=== PATIENT | female | born 1940 | race Caucasian/White ===

== ENCOUNTER → 2016-05-28 | Outpatient (CLI) | payer MEDICARE, OTHER ==
[~2016-05-28] MED LIST: ADV1DS IH; AGM875T; ALPR.25T; ALPR0.25 PO; ASPI-892 PO; BENZ200C3; CEFD300C3 PO; CHOL10003 PO; CHOL200059 PO; EST1.25T; ESTR1TAB24 PO; FISH OIL; FURO20TA4 PO; GARL400T13 PO; HC2.5C30 TOP; HCTZ12.5T PO; HYDR-3730 PO; HYDR12.56; LEVO50TA6 PO; LEVO75TA6 PO; MELO15TA39 PO; MNTL10T PO; MULT-878 PO; NADO40TA; NADO40TA PO; NFVALS90T PO; OMEG1CAP51 PO; PHEN200T27 PO; POTA10TA6; POTA10TA6 PO; PRD20T PO; PREPARATION H S48 EA PR; PREVASTATIN; PRV20T PO; SULF-222 PO; SULF1TAB35 PO; VALS320T8; [UNRECOGNIZED DRUG - OTHER]
[2016-05-28 15:01] LABS: BASOPHILS % (AUTO) 0 % (0-10); EOSINOPHILS # (AUTO) 0.1 10^3/uL (0.0-0.3); EOSINOPHILS % (AUTO) 1 % (0-10); LYMPHOCYTES # (AUTO) 4.6 X 10^3 (1.0-4.0); LYMPHOCYTES % (AUTO) 57 % (12-44); MEAN CORPUSCULAR HEMOGLOBIN 31 PG (25-34); MEAN CORPUSCULAR HGB CONC 33 G/DL (32-36); MEAN CORPUSCULAR VOLUME 97 FL (80-99); MEAN PLATELET VOLUME 10.6 FL (7.4-10.4); MONOCYTES # (AUTO) 0.6 X 10^3 (0.0-1.0); MONOCYTES % (AUTO) 7 % (0-12); NEUTROPHILS # (AUTO) 2.8 X 10^3 (1.8-7.8); NEUTROPHILS % (AUTO) 35 % (42-75); PLATELET COUNT 123 10^3/uL (130-400); RED BLOOD COUNT 3.63 10^6/uL (4.35-5.85); RED CELL DISTRIBUTION WIDTH 13.2 % (10.0-14.5)
[2016-05-28 15:36] LABS: ALANINE AMINOTRANSFERASE 25 U/L (0-55); ALBUMIN 3.9 G/DL (3.2-4.5); ANION GAP 9 MMOL/L (5-14); ASPARTATE AMINO TRANSFERASE 26 U/L (5-34); BILIRUBIN,TOTAL 0.5 MG/DL (0.1-1.0); BLOOD UREA NITROGEN 16 MG/DL (7-18); BUN/CREATININE RATIO 18; CALCIUM 9.5 MG/DL (8.5-10.1); CARBON DIOXIDE 28 MMOL/L (21-32); CHLORIDE 104 MMOL/L (98-107); GFR ESTIMATED > 60; GLUCOSE 146 MG/DL (70-105); LACTATE DEHYDROGENASE 199 U/L (125-220); POTASSIUM 3.5 MMOL/L (3.6-5.0); SODIUM 141 MMOL/L (135-145); TOTAL PROTEIN 5.9 G/DL (6.4-8.2)
== END ==
LOC: ONC 14:27
PROVIDERS: ATTEND Internal Medicine Hematology & Oncology
DX: D69.6 Thrombocytopenia, unspecified (principal)
CPT/HCPCS: 36415; 80053; 83615; 85025; 99213

== ENCOUNTER → 2016-06-21 | Outpatient (CLI) | payer MEDICARE, OTHER ==
--- NOTE | 2016-06-21 19:41 | Diagnostic Imaging Report ---
INDICATION: Screening. At this time there are no current complaints. EXAMINATION: Bilateral digital screening mammogram with CAD. The current study was also evaluated with a Computer Aided Detection (CAD) system. COMPARISON: This study was compared to the prior exams of 03/09/14, 02/04/13 and 12/10/11. FINDINGS: The fibroglandular tissue in both breasts is dense. This does limit the sensitivity of this exam. Overall, there does not appear to have been any significant change when compared to the prior study. No primary or secondary sign of malignancy is noted. IMPRESSION: 1. There is no radiographic evidence for malignancy. 2. The patient should have her annual bilateral screening mammogram on schedule in May of 2017. ACR BI-RADS Category 1: Negative. Result letter will be mailed to the patient. Note: At least 10% of breast cancer is not imaged by mammography. Dictated by: Dictated on workstation # [id number]
== END ==
LOC: RAD 13:04
PROVIDERS: ATTEND Internal Medicine
DX: Z12.31 Encounter for screening mammogram for malignant neoplasm of breast (principal)
CPT/HCPCS: 77067

== ENCOUNTER 2016-08-20 14:28 | Outpatient (RCR) | payer MEDICARE, OTHER ==
[2016-08-20 14:57] LABS: BASOPHILS % (AUTO) 0 % (0-10); EOSINOPHILS # (AUTO) 0.2 10^3/uL (0.0-0.3); EOSINOPHILS % (AUTO) 2 % (0-10); LYMPHOCYTES % (AUTO) 53 % (12-44); MEAN CORPUSCULAR HEMOGLOBIN 31 PG (25-34); MEAN CORPUSCULAR HGB CONC 32 G/DL (32-36); MEAN CORPUSCULAR VOLUME 96 FL (80-99); MEAN PLATELET VOLUME 10.9 FL (7.4-10.4); MONOCYTES # (AUTO) 0.5 X 10^3 (0.0-1.0); MONOCYTES % (AUTO) 6 % (0-12); NEUTROPHILS # (AUTO) 3.8 X 10^3 (1.8-7.8); NEUTROPHILS % (AUTO) 39 % (42-75); PLATELET COUNT 131 10^3/uL (130-400); RED BLOOD COUNT 4.02 10^6/uL (4.35-5.85); WHITE BLOOD COUNT 9.5 10^3/uL (4.3-11.0)
[2016-08-20 15:41] LABS: BILIRUBIN,TOTAL 0.6 MG/DL (0.1-1.0); CALCIUM 9.3 MG/DL (8.5-10.1); CREATININE SERUM 0.91 MG/DL (0.60-1.30); POTASSIUM 4.1 MMOL/L (3.6-5.0); TOTAL PROTEIN 6.4 G/DL (6.4-8.2)
== END 2016-11-18 | disposition home or self-care (01) ==
LOC: ONC 14:28
PROVIDERS: ATTEND Internal Medicine Hematology & Oncology
DX: C83.08 Small cell B-cell lymphoma, lymph nodes of multiple sites (principal); D80.1 Nonfamilial hypogammaglobulinemia; D69.59 Other secondary thrombocytopenia; I10 Essential (primary) hypertension; E03.9 Hypothyroidism, unspecified; E78.00 Pure hypercholesterolemia, unspecified; J42 Unspecified chronic bronchitis; M15.9 Polyosteoarthritis, unspecified; Z79.899 Other long term (current) drug therapy
CPT/HCPCS: 36415; 80053; 83615; 85025; 99213

== ENCOUNTER 2016-12-18 14:44 | Outpatient (RCR) | payer MEDICARE, OTHER ==
[2016-12-18 14:49] LABS: BASOPHILS % (AUTO) 0 % (0-10); EOSINOPHILS # (AUTO) 0.1 10^3/uL (0.0-0.3); EOSINOPHILS % (AUTO) 1 % (0-10); LYMPHOCYTES # (AUTO) 6.7 X 10^3 (1.0-4.0); LYMPHOCYTES % (AUTO) 55 % (12-44); MEAN CORPUSCULAR HEMOGLOBIN 31 PG (25-34); MEAN CORPUSCULAR HGB CONC 32 G/DL (32-36); MEAN CORPUSCULAR VOLUME 97 FL (80-99); MEAN PLATELET VOLUME 10.8 FL (7.4-10.4); MONOCYTES # (AUTO) 0.7 X 10^3 (0.0-1.0); MONOCYTES % (AUTO) 5 % (0-12); NEUTROPHILS # (AUTO) 4.7 X 10^3 (1.8-7.8); NEUTROPHILS % (AUTO) 38 % (42-75); PLATELET COUNT 133 10^3/uL (130-400); RED BLOOD COUNT 3.94 10^6/uL (4.35-5.85); RED CELL DISTRIBUTION WIDTH 13.1 % (10.0-14.5); WHITE BLOOD COUNT 12.2 10^3/uL (4.3-11.0)
[2016-12-18 15:35] LABS: ALANINE AMINOTRANSFERASE 22 U/L (0-55); ANION GAP 9 MMOL/L (5-14); ASPARTATE AMINO TRANSFERASE 26 U/L (5-34); BILIRUBIN,TOTAL 0.6 MG/DL (0.1-1.0); BLOOD UREA NITROGEN 17 MG/DL (7-18); BUN/CREATININE RATIO 20; CALCIUM 9.4 MG/DL (8.5-10.1); CARBON DIOXIDE 28 MMOL/L (21-32); CHLORIDE 101 MMOL/L (98-107); CREATININE SERUM 0.84 MG/DL (0.60-1.30); GFR ESTIMATED > 60; GLUCOSE 153 MG/DL (70-105); LACTATE DEHYDROGENASE 174 U/L (125-220); POTASSIUM 3.7 MMOL/L (3.6-5.0); SODIUM 138 MMOL/L (135-145); TOTAL PROTEIN 6.4 GM/DL (6.4-8.2)
== END 2017-01-26 | disposition home or self-care (01) ==
LOC: ONC 14:44
PROVIDERS: ATTEND Internal Medicine Hematology & Oncology
DX: C83.08 Small cell B-cell lymphoma, lymph nodes of multiple sites (principal); D80.1 Nonfamilial hypogammaglobulinemia; D69.59 Other secondary thrombocytopenia; I10 Essential (primary) hypertension; E03.9 Hypothyroidism, unspecified; E78.00 Pure hypercholesterolemia, unspecified; J42 Unspecified chronic bronchitis; M15.9 Polyosteoarthritis, unspecified; Z79.899 Other long term (current) drug therapy
CPT/HCPCS: 36415; 80053; 83615; 85025; 99213

== ENCOUNTER 2017-04-15 13:03 | Outpatient (RCR) | payer MEDICARE, OTHER ==
[2017-04-15 13:16] LABS: BASOPHILS % (AUTO) 0 % (0-10); EOSINOPHILS # (AUTO) 0.2 10^3/uL (0.0-0.3); EOSINOPHILS % (AUTO) 1 % (0-10); HEMATOCRIT 39 % (35-52); HEMOGLOBIN 12.6 G/DL (11.5-16.0); LYMPHOCYTES # (AUTO) 5.9 X 10^3 (1.0-4.0); LYMPHOCYTES % (AUTO) 56 % (12-44); MEAN CORPUSCULAR HEMOGLOBIN 32 PG (25-34); MEAN CORPUSCULAR HGB CONC 32 G/DL (32-36); MEAN CORPUSCULAR VOLUME 98 FL (80-99); MEAN PLATELET VOLUME 10.6 FL (7.4-10.4); MONOCYTES # (AUTO) 0.6 X 10^3 (0.0-1.0); MONOCYTES % (AUTO) 6 % (0-12); NEUTROPHILS # (AUTO) 3.8 X 10^3 (1.8-7.8); NEUTROPHILS % (AUTO) 36 % (42-75); PLATELET COUNT 132 10^3/uL (130-400); RED BLOOD COUNT 3.97 10^6/uL (4.35-5.85); RED CELL DISTRIBUTION WIDTH 12.7 % (10.0-14.5); WHITE BLOOD COUNT 10.5 10^3/uL (4.3-11.0)
[2017-04-15 13:44] LABS: ALANINE AMINOTRANSFERASE 28 U/L (0-55); ALKALINE PHOSPHATASE 52 U/L (40-136); BILIRUBIN,TOTAL 0.5 MG/DL (0.1-1.0); BUN/CREATININE RATIO 20; CALCIUM 9.5 MG/DL (8.5-10.1); CARBON DIOXIDE 28 MMOL/L (21-32); CHLORIDE 103 MMOL/L (98-107); GFR ESTIMATED > 60; GLUCOSE 141 MG/DL (70-105); POTASSIUM 3.5 MMOL/L (3.6-5.0); SODIUM 140 MMOL/L (135-145); TOTAL PROTEIN 6.7 GM/DL (6.4-8.2)
== END 2017-07-14 | disposition home or self-care (01) ==
LOC: ONC 13:03
PROVIDERS: ATTEND Internal Medicine Hematology & Oncology
DX: C83.08 Small cell B-cell lymphoma, lymph nodes of multiple sites (principal); D80.1 Nonfamilial hypogammaglobulinemia; D69.59 Other secondary thrombocytopenia; I10 Essential (primary) hypertension; E03.9 Hypothyroidism, unspecified; E78.00 Pure hypercholesterolemia, unspecified; J42 Unspecified chronic bronchitis; M15.9 Polyosteoarthritis, unspecified; Z79.899 Other long term (current) drug therapy
CPT/HCPCS: 36415; 80053; 83615; 85025; 99213

== ENCOUNTER → 2017-07-08 | Outpatient (CLI) | payer MEDICARE, OTHER ==
--- NOTE | 2017-07-09 14:22 | Diagnostic Imaging Report ---
EXAMINATION: Digital mammogram bilateral screening with CAD. INDICATION: Screening. COMPARISON: 06/21/2016, 03/09/2014, and 02/04/2013. PERSONAL HISTORY: At this time, there are no current complaints. FINDINGS: The fibroglandular tissue in both breasts is heterogeneously dense. This does limit the sensitivity of this exam. In the 9 o'clock position of the right breast roughly 6 cm from the nipple, there is a well-defined 8 mm nodular density. In reviewing the previous exam, I feel this finding was present but is somewhat more conspicuous on this exam. The tomographic images do suggest that this density has a smooth margin and most likely this is a cyst. Even so, I would recommend that ultrasound be performed to confirm this. The left breast is unchanged. IMPRESSION: Ultrasound would be recommended for further evaluation of the benign-appearing nodular density in the lateral aspect of the right breast. ACR BI-RADS Category 0: Incomplete. (Needs additional imaging evaluation). Result letter will be mailed to the patient. Note: At least 10% of breast cancer is not imaged by mammography. Dictated by: Dictated on workstation # [id number]
== END ==
LOC: RAD 14:06
PROVIDERS: ATTEND Internal Medicine
DX: Z12.31 Encounter for screening mammogram for malignant neoplasm of breast (principal)
CPT/HCPCS: 77067

== ENCOUNTER → 2017-08-07 | Outpatient (CLI) | payer MEDICARE, OTHER ==
--- NOTE | 2017-08-07 14:48 | Diagnostic Imaging Report ---
INDICATION: Right breast density. This study was performed for further evaluation. COMPARISON: Recent screening mammogram from 07/08/2017. FINDINGS: Sonographic interrogation of the 9 o'clock location of the right breast was performed. Imaging does confirm a simple cyst at this location 7 cm from the nipple measuring 8 mm x 6 mm x 7 mm. No internal vascularity is seen. There is posterior acoustic enhancement. IMPRESSION: A simple cyst at the 9 o'clock location of the right breast correlates in size and location to the density noted on the recent mammogram. The patient may return to routine annual screening mammography. ACR BI-RADS Category 2: Benign findings. Dictated by: Dictated on workstation # [id number]
== END ==
LOC: RAD 12:53
PROVIDERS: ATTEND Internal Medicine
DX: N60.01 Solitary cyst of right breast (principal); R92.0 Mammographic microcalcification found on diagnostic imaging of breast

== ENCOUNTER 2017-09-22 08:44 | Emergency (ER) | payer MEDICARE, OTHER ==
[~2017-09-22] VITALS: Ht 170.2 cm; Wt 90.7 kg
--- OUTSIDE RECORDS SUMMARY | 2017-09-22 08:52 | XMS REPORT ---
Author Author BRANDON PLATT [facility] eClinicalWorks Address Unknown Phone Unavailable Care Team Providers Care Train Control Electronic Technician Name Role Phone BRANDON PLATT CP Unavailable Allergies No Known Allergies Problems Problem Type Condition Code Onset Dates Condition Status Assessment Encounter for immunization Z23 Active Problem Need for prophylactic vaccination and inoculation, Influenza V04.81 Active Medications No Known Medications Procedures Procedure Coding System Code Date PCV 13 CPT-4 59206 Feb 04, 2015 SINGLE IMMUNIZATION ADMIN CPT-4 55089 Feb 04, 2015 FLUZONE TRIV HIGH DOSE (65 & UP)-SANOFI PASTEUR-2014 CPT-4 88028 Feb 04, 2015 IMMUNIZATION ADMIN, EACH ADD (please include units) CPT-4 71679 Feb 04, 2015 Results No Known Results Immunizations Vaccine Administration Date FLUZONE TRIV HIGH DOSE (65 & UP)-SANOFI PASTEUR-2014Feb 04, 2015 PCV 13 Feb 04, 2015 Summary Purpose eClinicalWorks Submission
--- OUTSIDE RECORDS SUMMARY | 2017-09-22 08:52 | XMS REPORT | Clinical Summary ---
Author Author User, MARA Organization [facility] Address Unknown Phone Allergies, Adverse Reactions, Alerts Allergy Name Reaction Description Start Date Severity Status Provider PREDNISONE Dermatological problems, e.g., rash, hives Critical No Longer Active Mili Gautam NORVASC Edema Critical No Longer Active Mili Gautam ERYTHROMYCIN Critical Active Mili Gautam Conditions or Problems Problem Name Problem Code Onset Date Status Entry Date Provider Comment Standard Description Annotate HYPERCHOLESTEROLEMIA 272.0 Active Mili Gautam Pure hypercholesterolemia HYPERTENSION, ACCELERATED OR MALIGNANT 401.0 Active Mili Gautam Malignant essential hypertension SKIN LESION 709.9 Resolved Mili Gautam Unspecified disorder of skin and subcutaneous tissue WEIGHT GAIN, ABNORMAL 783.1 Active Mili Gautam Abnormal weight gain ARTHRITIS 716.90 Resolved Mili Gautam Arthropathy, unspecified, site unspecified HYPERTRIGLYCERIDEMIA 272.1 Active Mili Gautam Pure hyperglyceridemia URINARY TRACT INFECTION, RECURRENT 599.0 Resolved Mili Gautam Urinary tract infection, site not specified ANXIETY 300.00 Active Mili Gautam Anxiety state, unspecified SINUS CONGESTION 478.1 Resolved Mili Gautam Other diseases of nasal cavity and sinuses SWEATING 780.8 Resolved Mili Gautam Generalized hyperhidrosis INSOMNIA, TRANSIENT 307.41 Resolved Mili Gautam Transient disorder of initiating or maintaining sleep EDEMA 782.3 Active Mlii Gautam Edema URINARY FREQUENCY 788.41 Resolved Mili Gautam Urinary frequency VASOVAGAL SYNCOPE 780.2 Resolved Mili Gautam Syncope and collapse MENOPAUSAL SYNDROME 627.0 Active Mili Gautam Premenopausal menorrhagia SCREENING FOR OSTEOPOROSIS V82.81 Resolved Mili Gautam Screening for osteoporosis SCREENING MAMMOGRAM NEC V76.12 Resolved Mili Gautam Other screening mammogram ABSCESS, SKIN 682.9 Resolved Mili Gautam Cellulitis and abscess of unspecified sites URTICARIA, ACUTE 708.9 Resolved Mili Gautam Unspecified urticaria SINUSITIS 473.9 Resolved Mili Gautam Unspecified sinusitis (chronic) BRONCHITIS 490 Resolved Mili Gautam Bronchitis, not specified as acute or chronic BRONCHITIS 490 Resolved Mili Gautam Bronchitis, not specified as acute or chronic NEVUS, ATYPICAL 216.9 Resolved Mili Gautam Benign neoplasm of skin, site unspecified SEBORRHEIC KERATOSIS 702.19 Resolved Mili Gautam Other seborrheic keratosis RHINITIS 472.0 Resolved Mili Gautam Chronic rhinitis ALLERGIC RHINITIS, SEASONAL 477.0 Resolved Mili Gautam Allergic rhinitis due to pollen VACCINE AGAINST STREPTOCOCCUS PNEUMONIAE V03.82 Resolved Mili Gautam Need for prophylactic vaccination against Streptococcus pneumoniae [pneumococcus] ABNORMAL MAMMOGRAM 793.80 Resolved Mili Gautam Abnormal mammogram, unspecified SINUSITIS, SPHENOIDAL, ACUTE 461.3 Resolved Mili Gautam Acute sphenoidal sinusitis HYPOTHYROIDISM, PRIMARY 244.9 Active Mili Gautam Unspecified hypothyroidism 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 DIVERTICULITIS, ACUTE 562.11 Resolved Mili Gautam Diverticulitis of colon without mention of hemorrhage ABDOMINAL PAIN, LEFT LOWER QUADRANT 789.04 Resolved Mili Gautam Abdominal pain, left lower quadrant CANDIDIASIS, ACUTE 112.9 Resolved Mili Gautam Candidiasis of unspecified site SINUSITIS, SPHENOIDAL, ACUTE 461.3 Resolved Mili Gautam Acute sphenoidal sinusitis RESPIRATORY FAILURE, ACUTE 518.81 Resolved Mili Gautam Acute respiratory failure WHEEZING 786.07 Resolved Mili Gautam Wheezing UTI 599.0 Inactive Mili Gautam Urinary tract infection, site not specified CANDIDIASIS, VAGINAL 112.1 Resolved Mili Gautam Candidiasis of vulva and vagina CELLULITIS 682.9 Resolved Mili Gautam Cellulitis and abscess of unspecified sites KNEE PAIN 719.46 Active Mili Gautam Pain in joint involving lower leg left Medication List Medication Instructions Start Date Stop Date Generic Name NDC Status Provider Patient Instruction FUROSEMIDE 20 MG TABS 1 PO DAILY PRN SWELLING FUROSEMIDE 18748384945 Active Alexus Patel DIFLUCAN 100 MG TAB 1 PO daily for 3 days FLUCONAZOLE 71481679751 No Longer Active Alexus Patel PROAIR HFA 108 (90 BASE) MCG/ACT AERS 2 puff Q4 hrs prn wheezing ALBUTEROL SULFATE 90644942949 No Longer Active Mili Gautam SINGULAIR 10 MG TABS 1 PO QHS MONTELUKAST SODIUM 76261398080 No Longer Active Mili Gautam ZOSTAVAX 23506 UNT/0.65ML SOLR 1 injection once to prevent Shingles ZOSTER VACCINE LIVE 66477267492 No Longer Active Mili Gautam MOBIC 15 MG TABS 1 PO daily MELOXICAM 63285656576 Active Alexus Patel BACTRIM DS 800-160 MG TAB 1 PO BID TRIMETHOPRIM- SULFAMETHOXAZOLE 42118343144 No Longer Active Mili Gautam AUGMENTIN 500-125 MG TAB 1 PO BID AMOXICILLIN-POT CLAVULANATE 46968818387 No Longer Active Mili Gautam TERAZOL 7 0.4 % CREA 1 applicator full per vagina QHS for 7 days TERCONAZOLE VAGINAL 22791826752 No Longer Active Mili Gautam ANUSOL-HC 2.5 % CREAM apply to affected area TID prn HYDROCORTISONE (RECTAL) 90280712845 Active Mili Gautam AUGMENTIN 500-125 MG TAB 1 PO BID AMOXICILLIN-POT CLAVULANATE 08802252557 No Longer Active Alexus Patel PYRIDIUM 200 MG TAB 1 PO TID prn urinary urgency PHENAZOPYRIDINE HCL 29601608569 No Longer Active Alexus Patel CIPRO 250 MG TABS 1 PO BID CIPROFLOXACIN HCL 19534091596 No Longer Active Alexus Patel ANUSOL-HC 25 MG SUPPOSITORY 1 CO TID prn HYDROCORTISONE NATALIE ( RECTAL) 43232548446 No Longer Active Mili Gautam ANUSOL-HC 2.5 % CREAM as directed HYDROCORTISONE (RECTAL) 39604834952 No Longer Active Miligt Gautam ADVAIR DISKUS 250-50 MCG/DOSE MISC 1 Puff BID FLUTICASONE-SALMETEROL 77818155573 No Longer Active Mili Malka Gautam LASIX 40 MG TABS 1 PO daily prn for swelling FUROSEMIDE 86519159700 No Longer Active Mili Malka Gautam CEFDINIR 300 MG CAPS 1 PO BID CEFDINIR 60925480652 No Longer Active Miligt WALDROP'S NASAL SPRAY (DEXAMETHASONE, GENTAMICIN, SALINE) 2 puffs each nostril TID for [address] WALDROP'Lashay NASAL SPRAY ( DEXAMETHASONE, GENTAMICIN, SALINE) No Longer Active Miligt Gautam PREMARIN 0.625 MG/GM CREA apply 2 inch ribbon outside the urethra once night a week ESTROGENS, CONJUGATED VAGINAL 76884927180 No Longer Active Miligt Gautam BACTROBAN 2 % CREAM Apply to affected area TID. MUPIROCIN CALCIUM 06001443472 No Longer Active Miligt Gautam NYSTATIN 494774 UNIT/GM CREA apply to affected areas TID for 7 days NYSTATIN 98565583128 No Longer Active Miligt Gautam FLAGYL 500 MG TABS 1 PO TID METRONIDAZOLE 53181276275 No Longer Active Miligt Gautam LEVAQUIN 500 MG TAB 1 PO QD LEVOFLOXACIN 11621292925 No Longer Active Mili Malka Gautam FLAGYL 500 MG TABS 1 PO TID METRONIDAZOLE 71047546678 No Longer Active Mili Malka Gautam LEVAQUIN 500 MG TAB 1 PO QD LEVOFLOXACIN 94975925520 No Longer Active Mili Malka Gautam LAMISIL 250 MG TABS 1 PO daily TERBINAFINE HCL 96531336507 No Longer Active Mili Malka Gautam PYRIDIUM 200 MG TAB 1 PO TID prn urinary urgency PHENAZOPYRIDINE HCL 42557527212 No Longer Active Miligt Gautam FISH OIL 1000 MG CAPS 2 PO QD OMEGA-3 FATTY ACIDS 10825344276 Active Mili Gautam ESTRACE 1 MG TABS 1 PO daily ESTRADIOL 21376885636 Active Nicola Macias CEPHALEXIN 500 MG CAPS 1 po TID x 5 days CEPHALEXIN 80335698739 No Longer Active Mlii Malka Gautam PYRIDIUM 200 MG TAB 1 PO TID prn urinary urgency PHENAZOPYRIDINE HCL 78251160947 No Longer Active Dorina Armond MIRALAX POWD 1 scoop in 1/2 cup water every 3 hrs prn constipation. POLYETHYLENE GLYCOL 3350 27740234684 No Longer Active Miligt Gautam PYRIDIUM 200 MG TABS 1 po TID x 3 days PHENAZOPYRIDINE HCL 74661386899 No Longer Active Alexus Patel AUGMENTIN 500-125 MG TAB 1 PO BID x 7 days AMOXICILLIN-POT CLAVULANATE 74435681506 No Longer Active Mili Gautam SYNTHROID 0.05 MG TAB 1 PO daily on empty stomach LEVOTHYROXINE SODIUM 05576655237 Active Alexus Patel ROBITUSSIN A-C 10-100 MG/5ML SYRUP 1 teaspoon PO Q 4-6 hr prn ROBITUSSIN A-C 10-100 MG/5ML SYRUP No Longer Active Mili WALDROP'S NASAL SPRAY (DEXAMETHASONE, GENTAMICIN, SALINE) 2 puffs each nostril TID for [address] PANDEY NASAL SPRAY ( DEXAMETHASONE, GENTAMICIN, SALINE) No Longer Active Mili Gautam CIPRO 500 MG TAB 1 PO BID for 7 days CIPROFLOXACIN HCL 34426848243 No Longer Active Mili Gautam TABS 1 PO BID prn for nervous stomach PHENOBARBITAL-BELLADONNA ALK 33512564073 No Longer Active Mili Gautam AUGMENTIN 875-125 MG TAB 1 PO BID AMOXICILLIN-POT CLAVULANATE 24929997505 No Longer Active Miligt Gautam TESSALON 200 MG CAPS 1 PO TID prn cough BENZONATATE 97294148431 No Longer Active Mili Gautam ALEVE 220 MG TABS 1 PO BID NAPROXEN SODIUM 69747411003 No Longer Active Mili WALDROP'Lashay NASAL SPRAY (DEXAMETHASONE, GENTAMICIN, SALINE) 2 puffs each nostril TID for [address] WALDROP'Lashay NASAL SPRAY ( DEXAMETHASONE, GENTAMICIN, SALINE) No Longer Active Mili Gautam CIPRO 500 MG TABS 1 PO BID CIPROFLOXACIN HCL 52642197489 No Longer Active Mili Gautam PYRIDIUM 200 MG TAB 1 PO TID prn urinary urgency PHENAZOPYRIDINE HCL 38085203704 No Longer Active Chacorta Wylie AUGMENTIN 500-125 MG TAB 1 PO BID AMOXICILLIN-POT CLAVULANATE 95415722780 No Longer Active Chacorta Wylie IBUPROFEN 400 MG TABS 1 po TID IBUPROFEN 74552980888 No Longer Active Mili Gautam VITAMIN D 1000 UNIT TABS 1 PO Daily CHOLECALCIFEROL 36325302610 Active Miligt Gautam PYRIDIUM 200 MG TABS 1 po TID x 3 days PHENAZOPYRIDINE HCL 17545326515 No Longer Active Alexus Patel MACROBID 100 MG CAPS 1 po BID x 7 days NITROFURANTOIN MONOHYD MACRO 46689286471 No Longer Active Alexus Patel CRANBERRY 300 MG TABS 1 PO daily CRANBERRY 83758292805 No Longer Active Mili Malka Gautam BACTROBAN 2 % OINT Apply QID prn MUPIROCIN 41280498829 No Longer Active Mili Malka Gautam CEPHALEXIN 500 MG TABS 1 po QID x 10 days CEPHALEXIN 26015511279 No Longer Active Mili Malka Gautam NAPROXEN 500 MG TABS ! PO Q6hrs prn NAPROXEN 16435989560 No Longer Active Mili Malka Gautam VITAMIN B-12 1000 MCG TABS 1 po daily CYANOCOBALAMIN 32242438404 No Longer Active Mili Malka Gautam GINKOBA 40 MG TABS 1 PO daily GINKGO BILOBA 11512841796 No Longer Active Mili Malka Gautam PROMETHAZINE HCL 25 MG TABS 1 PO Q6hrs prn nausea PROMETHAZINE HCL 49141462503 No Longer Active Mili Malka Gautam PYRIDIUM 200 MG TAB 1 PO TID for 3 days PHENAZOPYRIDINE HCL 39519816208 No Longer Active Mili Malka Gautam PRAVACHOL 20 MG TABS 1 po daily PRAVASTATIN SODIUM 94306876575 Active Nicola Macias PYRIDIUM 200 MG TAB 1 PO TID PHENAZOPYRIDINE HCL 49476492470 No Longer Active Mili Malka Gautam AUGMENTIN 500-125 MG TAB 1 PO BID AMOXICILLIN-POT CLAVULANATE 89425097732 No Longer Active Mili Malka Gautam AUGMENTIN 500-125 MG TAB 1 PO BID AMOXICILLIN-POT CLAVULANATE 43484159839 No Longer Active Mili Malka Gautam BACTRIM DS 800-160 MG TAB 1 po BID for 7 days TRIMETHOPRIM-SULFAMETHOXAZOLE 93654591429 No Longer Active Zahraa PANDEY NASAL SPRAY (DEXAMETHASONE, GENTAMICIN, SALINE) 2 puffs each nostril TID DR. PANDEY NASAL SPRAY (DEXAMETHASONE, GENTAMICIN, SALINE) No Longer Active Mili Gautam AUGMENTIN 500-125 MG TAB 1 PO BID AMOXICILLIN-POT CLAVULANATE 05004776018 No Longer Active Mili Gautam MUCINEX 600 MG TB12 1 po BID GUAIFENESIN 51841851834 No Longer Active Mili Gautam MUCINEX 600 MG TB12 1 PO BID for 7 days GUAIFENESIN 01828663350 No Longer Active Mili Gautam AUGMENTIN 875-125 MG TAB 1 PO BID AMOXICILLIN-POT CLAVULANATE 91462770517 No Longer Active Mili PANDEY NASAL SPRAY (DEXAMETHASONE, GENTAMICIN, SALINE) 2 puffs each nostril TID for [address] PANDEY NASAL SPRAY ( DEXAMETHASONE, GENTAMICIN, SALINE) No Longer Active Alexus Patel DOXYCYCLINE HYCLATE 100 MG CAP 1 po BID for 7 days DOXYCYCLINE HYCLATE 40110063351 No Longer Active Alexus Patel DECADRON/GARAMYCIN NASAL SPRAY 1 spray BID prn from Dr Waldrop 2005 DECADRON/GARAMYCIN NASAL SPRAY No Longer Active Mili PANDEY NASAL SPRAY (DEXAMETHASONE, GENTAMICIN, SALINE) 2 puffs each nostril TID for [address] PANDEY NASAL SPRAY ( DEXAMETHASONE, GENTAMICIN, SALINE) No Longer Active Mlii Gautam AUGMENTIN 875-125 MG TAB 1 PO BID for 7 days AMOXICILLIN-POT CLAVULANATE 68423468615 No Longer Active Mili Gautam GARLIC 500 MG CAPS 1 PO daily GARLIC 15799011943 Active Mili Malka Gautam VALIUM 2 MG TAB 1 PO Q6hrs prn DIAZEPAM 74434450321 No Longer Active Mili Malka Gautam KENALOG 0.1 % CREA apply to affected areas on skin BID for 7 days TRIAMCINOLONE ACETONIDE 08057901185 No Longer Active Mili Malka Gautam DOXYCYCLINE HYCLATE 100 MG CAPS 1 PO BID DOXYCYCLINE HYCLATE 48123526100 No Longer Active Mili Malka Gautam HYDROCHLOROTHIAZIDE 12.5 MG CAPS 1 PO QD HYDROCHLOROTHIAZIDE 86164151290 Active Nicola Macias DIOVAN 320 MG TABS 1 PO daily for BP VALSARTAN 78956801824 Active Nicola Macias K-DUR 20 MEQ TAB CR 1 PO QOD POTASSIUM CHLORIDE 88470744931 No Longer Active Mili Malka Gautam ZYRTEC 10 MG TABS 1 po daily prn CETIRIZINE HCL 48835513215 Active Mili Malka Gautam XANAX 0.25 MG TABS 1 po q 6 hrs. prn ALPRAZOLAM 41792107403 Active Mili Malka Gautam LASIX 40 MG TAB 1 PO QOD FUROSEMIDE 64975567030 No Longer Active Mili Malka Gautam NORVASC 10 MG TAB 1 PO QD AMLODIPINE BESYLATE 69153040709 No Longer Active Mili Mlaka Gautam DIOVAN HCT 160-12.5 MG TABS 2 PO QD VALSARTAN- HYDROCHLOROTHIAZIDE 80656975537 No Longer Active Crystal LaGalle PAXIL CR 12.5 MG TB24 1 PO QD PAROXETINE HCL 72155263951 No Longer Active Mili Malka Gautam CORICIDIN HBP FLU 15-500-2 MG TABS 1 PO Q12hrs DM- APAP-CPM 54363737828 No Longer Active Mili Malka Gautam XANAX 0.25 MG TABS 1 every 4-6hrs scheduled ALPRAZOLAM 04235170395 No Longer Active Mili Malka Gautam PREMARIN 1.25 MG TABS 1 PO QD ESTROGENS CONJUGATED 65494524062 No Longer Active Alexus Patel CENESTIN 1.25 MG TABS 1 po daily ESTROGENS CONJ SYNTHETIC A 73109862362 No Longer Active Mili Malka Gautam BUSPAR 5 MG TABS 1/2 - 1 tab PO QD prn BUSPIRONE HCL 00371614245 No Longer Active Mili Malka Gautam BACTRIM DS 800-160 MG TAB 1 PO BID TRIMETHOPRIM- SULFAMETHOXAZOLE 89136029964 No Longer Active Miligt Gautam LIPITOR 10 MG TABS 1/2 po daily ATORVASTATIN CALCIUM 42523739263 No Longer Active Chrissy Piva ASPIRIN 81 MG TABS 1 PO QD ASPIRIN 99268253590 Active Miligt Gautam CITRACAL + D 250-62.5 MG-IU TABS 1 po daily CALCIUM CITRATE-VITAMIN D 55880208351 Active Mili Malka Gautam MULTIVITAMINS TABS 1 po daily MULTIPLE VITAMIN 58915074995 Active Miligt Gautam KLOR-CON M10 10 MEQ TBCR 1 po daily POTASSIUM CHLORIDE CK CR 04129895402 Active Nicola Macias NADOLOL 40 MG TABS 1 po daily NADOLOL 75045812904 Active Nicola Macias Immunizations Vaccine Administration Date Value Standard Description Influenza vaccine given done influenza virus vaccine, unspecified formulation Vital Signs Date Name Value Unit Range Description blood pressure, diastolic - 8462-4 78 mm[Hg] BP arriaga blood pressure, systolic - 8480-6 160 mm[Hg] BP sys pulse rate E&M - 8867-4 60 /min Heart rate respiratory rate E&M - 9279-1 14 /min Resp rate weight E&M - 3141-9 200 [lb_av] Weight Measured blood pressure, diastolic - 8462-4 85 mm[Hg] BP arriaga blood pressure, systolic - 8480-6 137 mm[Hg] BP sys pulse rate E&M - 8867-4 72 /min Heart rate respiratory rate E&M - 9279-1 14 /min Resp rate weight E&M - 3141-9 203 [lb_av] Weight Measured blood pressure, diastolic - 8462-4 72 mm[Hg] BP arriaga blood pressure, systolic - 8480-6 140 mm[Hg] BP sys pulse rate E&M - 8867-4 68 /min Heart rate respiratory rate E&M - 9279-1 14 /min Resp rate temperature E&M 98.6 [degF] Body temperature weight E&M - 3141-9 205 [lb_av] Weight Measured blood pressure, diastolic - 8462-4 78 mm[Hg] BP arriaga blood pressure, systolic - 8480-6 158 mm[Hg] BP sys pulse rate E&M - 8867-4 66 /min Heart rate respiratory rate E&M - 9279-1 14 /min Resp rate weight E&M - 3141-9 202 [lb_av] Weight Measured blood pressure, diastolic - 8462-4 62 mm[Hg] BP arriaga blood pressure, systolic - 8480-6 132 mm[Hg] BP sys pulse rate E&M - 8867-4 70 /min Heart rate respiratory rate E&M - 9279-1 14 /min Resp rate temperature E&M 98.6 [degF] Body temperature weight E&M - 3141-9 196 [lb_av] Weight Measured Diagnostic Results Date Name Value Unit Range Description Clinical Lists Update: CBC,CMP,Chol,Trig,TSH,Free T4,UA - Chemistry Estimated Glomerular Filtration Rate (calc) 68 mL/min/1.73m2 albumin, serum 4.3 g/dL anion gap, serum 10 sodium, serum 138 mmol/L triglyceride, serum, fasting 209 mg/dL bilirubin, serum, total 0.5 mg/dL alanine aminotransferase (SGPT), serum 12 U/L aspartate aminotransferase (SGOT), serum 17 U/L protein, total, serum 6.5 g/dL potassium, serum 4.8 mmol/L thyroid stimulating hormone, serum 2.26 u[iU]/mL thyroxine, serum, free 0.87 ng/dL creatinine, serum 0.9 mg/dL carbon dioxide, venous blood 31.0 mmol/L cholesterol, serum 205 mg/dL chloride, serum 102 mmol/L calcium, serum 9.6 mg/dL urea nitrogen, blood 19 mg/dL alkaline phosphatase, serum 68 U/L glucose, plasma fasting 108 mg/dL Clinical Lists Update: CBC,CMP,Chol,Trig,TSH,Free T4,UA - Hematology red blood cell distribution width 13.5 % mean corpuscular volume, RBC 99 fL hematocrit, blood 41 % hemoglobin, blood 13.1 g/dL platelet count 171 10*3/mm3 erythrocyte (RBC) count 4.17 10*6/mm3 leukocyte count, blood 8.9 10*3/mm3 Clinical Lists Update: CBC,CMP,Chol,Trig,TSH,Free T4,UA - Urinalysis blood in urine (hemoglobin) by dipstick moderate protein, urine, semiquantitative (dipstick) 100 epithelial cells, urine 5-10 /[LPF] hyaline casts, urine none /[LPF] bacteria, urine microscopy 3+ RBC urine by microscopy 20-30 WBC urine on microscopy TNTC {Cells}/[HPF] appearance, urine Cloudy Yellow urobilinogen, urine, semiquantitative (dipstick) 0.2 specific gravity, urine >1.030 glucose, urine, semiquantitative neg bilirubin, urine neg ketones, urine, by test strip neg nitrite, urine, semiquantitative positive pH, urine, semiquantitative 5.5 mucus on urinalysis 1+ Clinical Lists Update: CMP,FLP,TSH,FREE T4 - Chemistry Estimated Glomerular Filtration Rate (calc) 70 mL/min/1.73m2 albumin, serum 4.1 g/dL cholesterol/HDL ratio, serum, percent 4.4 anion gap, serum 10 sodium, serum 137 mmol/L triglyceride, serum, fasting 238 mg/dL bilirubin, serum, total 0.6 mg/dL alanine aminotransferase (SGPT), serum 12 U/L aspartate aminotransferase (SGOT), serum 16 U/L protein, total, serum 6.2 g/dL potassium, serum 4.1 mmol/L LDL cholesterol, serum 106 mg/dL thyroid stimulating hormone, serum 2.58 u[iU]/mL HDL cholesterol, serum 45.0 mg/dL thyroxine, serum, free 1.04 ng/dL creatinine, serum 0.9 mg/dL carbon dioxide, venous blood 29.0 mmol/L cholesterol, serum 199 mg/dL chloride, serum 102 mmol/L calcium, serum 9.3 mg/dL urea nitrogen, blood 16 mg/dL alkaline phosphatase, serum 53 U/L glucose, plasma fasting 95 mg/dL Estimated Glomerular Filtration Rate (calc) 84 mL/min/1.73m2 glucose, plasma fasting 89 mg/dL cholesterol/HDL ratio, serum, percent 4.0 anion gap, serum 13 sodium, serum 141 mmol/L triglyceride, serum, fasting 216 mg/dL bilirubin, serum, total 0.6 mg/dL alanine aminotransferase (SGPT), serum 14 U/L aspartate aminotransferase (SGOT), serum 20 U/L protein, total, serum 5.7 g/dL potassium, serum 3.8 mmol/L LDL cholesterol, serum 100 mg/dL thyroid stimulating hormone, serum 2.88 u[iU]/mL HDL cholesterol, serum 47.0 mg/dL thyroxine, serum, free 0.96 ng/dL creatinine, serum 0.7 mg/dL carbon dioxide, venous blood 27.0 mmol/L cholesterol, serum 190 mg/dL chloride, serum 105 mmol/L calcium, serum 9.2 mg/dL urea nitrogen, blood 12 mg/dL alkaline phosphatase, serum 54 U/L albumin, serum 3.8 g/dL Clinical Lists Update: UA - Urinalysis blood in urine (hemoglobin) by dipstick Small protein, urine, semiquantitative (dipstick) Trace epithelial cells, urine 10-20 /[LPF] hyaline casts, urine None /[LPF] bacteria, urine microscopy 1+ RBC urine by microscopy 0-2 WBC urine on microscopy 10-20 {Cells}/[HPF] appearance, urine Cloudy Yellow urobilinogen, urine, semiquantitative (dipstick) 0.2 specific gravity, urine 1.025 pH, urine, semiquantitative 5.5 nitrite, urine, semiquantitative neg ketones, urine, by test strip Neg bilirubin, urine Neg glucose, urine, semiquantitative Neg mucus on urinalysis None Encounters Code Encounter Date Provider Facility CPT-39522 Ofc Vst, Est Level III 13:26:46 CDT Mili Gautam DO, FACP CPT-09298 Ofc Vst, Est Level III 17:39:31 MIX TECHNICIAN Mili Gautam DO, FACP CPT-16839 Ofc Vst, Est Level III 15:09:46 MIX TECHNICIAN Mili Gautam [facility] [address] CPT-56632 Ofc Vst, Est Level III 17:42:49 MIX TECHNICIAN Mili Gautam DO, FACP CPT-81428 Ofc Vst, Est Level III 14:15:29 MIX TECHNICIAN Mili Gautam, DO, FACP CPT-65918 Ofc Vst, Est Level III 12:57:33 MIX TECHNICIAN Mili Gautam, DO, FACP CPT-95792 Ofc Vst, Est Level IV 13:36:51 MIX TECHNICIAN Mili Gautam, DO, FACP CPT-23289 Ofc Vst, Est Level III 13:13:04 MIX TECHNICIAN Mili Gautam, DO, FACP CPT-88153 Ofc Vst, Est Level III 14:17:29 CDT Mili Gautam, DO, FACP CPT-02656 Ofc Vst, Est Level III 16:26:29 CDT Mili Gautam, DO, FACP CPT-55102 Ofc Vst, Est Level III 15:16:40 CDT Mili Metz Gautam, DO, FACP CPT-26921 Ofc Vst, Est Level III 12:01:38 CDT Mili Metz Gautam, DO, FACP CPT-09880 Ofc Vst, Est Level III 19:36:46 MIX TECHNICIAN Mili Metz Gautam, DO, FACP CPT-09814 Ofc Vst, Est Level III 15:45:49 MIX TECHNICIAN Mili Metz Gautam, DO, FACP CPT-68307 Ofc Vst, Est Level IV 14:05:12 CDT Mlii Metz Lotus, DO, FACP CPT-58132 Ofc Vst, Est Level IV 11:38:35 MIX TECHNICIAN Mili Metz Lotus, DO, FACP CPT-81260 Ofc Vst, Est Level IV 12:15:39 MIX TECHNICIAN Mili Metz Lotus, DO, FACP CPT-20863 Ofc Vst, Est Level IV 10:49:39 CDT Mili Metz Lotus, DO, FACP CPT-95094 Ofc Vst, Est Level III 11:12:31 CDT Mili Metz Lotus, DO, FACP CPT-54450 Ofc Vst, Est Level IV 11:24:11 CDT Miligt Metz Lotus, DO, FACP CPT-83346 Ofc Vst, Est Level IV 10:56:53 MIX TECHNICIAN Mili Metz Lotus, DO, FACP CPT-37017 Ofc Vst, Est Level IV 10:23:39 CDT Mili Metz Lotus, DO, FACP CPT-47688 Ofc Vst, Est Level IV 13:45:21 CDT Miligt Metz Lotus, DO, FACP CPT-83103 Ofc Vst, Est Level III 14:30:43 CDT Miligt [facility] CPT-58465 Ofc Vst, Est Level IV 10:27:11 MIX TECHNICIAN Miligt Metz Lotus, DO, FACP CPT-90752 Ofc Vst, Est Level IV 10:00:49 CDT Mili Malka Metz Lotus, DO, FACP CPT-37416 Ofc Vst, Est Level III 16:29:04 CDT Miligt Metz Lotus, DO, FACP CPT-07478 Ofc Vst, Est Level IV 10:17:09 CDT Miligt Metz Lotus, DO, FACP CPT-03573 Ofc Vst, Est Level IV 09:20:45 MIX TECHNICIAN Miligt Metz Lotus, DO, FACP CPT-40573 Ofc Vst, Est Level IV 10:24:24 CDT Miligt Metz Lotus, DO, FACP CPT-79144 Ofc Vst, Est Level III 13:19:51 CDT Miligt Metz Lotus, DO, FACP CPT-72303 Ofc Vst, Est Level IV 16:20:29 CDT Miligt Metz Lotus, DO, FACP CPT-64133 Ofc Vst, Est Level IV 10:16:23 CDT Miligt Metz Lotus, DO, FACP CPT-83150 Ofc Vst, Est Level IV 10:30:07 MIX TECHNICIAN Mili Metz Lotus, DO, FACP CPT-57486 Ofc Vst, Est Level III 10:40:49 CDT Mili Malka Metz Lotus, DO, FACP CPT-52960 Ofc Vst, Est Level III 10:16:25 CDT Miligt Gautam, DO, FACP CPT-98317 Ofc Vst, Est Level III 10:25:50 CDT Mili Malka Gautam, DO, FACP CPT-82343 Ofc Vst, Est Level IV 10:39:21 CDT Miligt Gautam [facility] [place] CPT-33449 Ofc Vst, Est Level IV 16:03:05 CDT Mili Malka Gautam [facility] [place] CPT-71709 Ofc Vst, Est Level III 14:54:11 MIX TECHNICIAN Mili Gautam [facility] [place] CPT-18651 Ofc Vst, Est Level III 15:34:35 CDT Miligt Gautam [facility] [place] CPT-18555 Ofc Vst, Est Level IV 10:31:02 CDT Mili Malka Gautam [facility] [place] CPT-79920 Ofc Vst, Est Level III 11:13:15 CDT Miligt Gautam [facility] [place] CPT-08055 Ofc Vst, Est Level IV 10:12:47 CDT Miligt Gautam [facility] [place] CPT-37253 Ofc Vst, Est Level III 15:47:34 MIX TECHNICIAN Mili Gautam [facility] [place] CPT-69009 Ofc Vst, Est Level IV 11:06:54 MIX TECHNICIAN Mili Gautam [facility] [place] CPT-57884 Ofc Vst, Est Level IV 10:42:38 CDT Miligt Gautam [facility] [place] CPT-63163 Ofc Vst, Est Level IV 11:22:18 CDT Miligt Gautam [facility] [place] CPT-69476 Ofc Vst, Est Level IV 15:48:16 CDT Mili Malka Gautam [facility] [place] CPT-55508 Ofc Vst, Est Level IV 13:08:33 CDT Mili Gautam [facility] [place] CPT-02080 Ofc Vst, Est Level III 13:21:55 MIX TECHNICIAN [facility] [place] CPT-41659 Ofc Vst, Est Level IV 13:13:53 MIX TECHNICIAN [facility] [place] CPT-35375 Ofc Vst, Est Level III 17:49:28 MIX TECHNICIAN [facility] [place] CPT-85766 Ofc Vst, Est Level IV 17:29:41 MIX TECHNICIAN [facility] [place] CPT-65909 Ofc Vst, Est Level IV 13:09:45 MIX TECHNICIAN [facility] [place] CPT-86837 Ofc Vst, Est Level IV 19:10:11 CDT [facility] [place] CPT-36194 Ofc Vst, New Level IV 18:05:12 CDT [facility] [place] Procedures Code Procedure Name Date Entry Date Standard Description CPT-G0439 Medicare Annual Wellness Visit 14:05:26 CDT CPT-G8446 E-Prescribing not done due to controlled substance 14:15 :29 MIX TECHNICIAN CPT-G8443 E-Prescribing Medication Sent 12:57:33 MIX TECHNICIAN CPT-G8445 E-Prescribing Not sent due to no medication given 13:36: 51 MIX TECHNICIAN CPT-G8443 E-Prescribing Medication Sent 13:13:04 MIX TECHNICIAN CPT-G8443 E-Prescribing Medication Sent 14:17:29 CDT CPT-G8443 E-Prescribing Medication Sent 16:26:29 CDT CPT-G8445 E-Prescribing Not sent due to no medication given 15:16: 40 CDT CPT-G8445 E-Prescribing Not sent due to no medication given 12:01: 38 CDT CPT-G8445 E-Prescribing Not sent due to no medication given 19:36: 46 MIX TECHNICIAN CPT-G8443 E-Prescribing Medication Sent 15:45:49 MIX TECHNICIAN CPT-G8443 E-Prescribing Medication Sent 15:32:38 CDT CPT-G0438 Medicare Annual Wellness Visit Initial 15:32:38 CDT CPT-G8446 E-Prescribing not done due to controlled substance 16:29 :04 CDT CPT-G8443 E-Prescribing Medication Sent 10:17:09 CDT CPT-51354 Injection, Pneumovax 10:24:24 CDT CPT-59608 Excision of Benign Lesion 2.1-3.0 cm 10:32:03 CDT 09/22 CPT-02929 Excision of Malignant lesion 2.1-3.0 cm 16:12:48 CDT
--- OUTSIDE RECORDS SUMMARY | 2017-09-22 08:54 | XMS REPORT | Clinical Summary ---
Author Author User, MARA Organization [facility] Address Unknown Phone Allergies, Adverse Reactions, [...] initiating or maintaining sleep EDEMA 782.3 Active Mili Gautam Edema URINARY FREQUENCY 788.41 Resolved Mili [...] TABS 1 PO DAILY PRN SWELLING FUROSEMIDE 85596607090 Active Alexus Patel DIFLUCAN 100 MG TAB 1 PO daily for 3 days FLUCONAZOLE 18551370539 No Longer Active Alexus Patel PROAIR HFA 108 (90 BASE) MCG/ACT AERS 2 puff Q4 hrs prn wheezing ALBUTEROL SULFATE 05496563230 No Longer Active Mili Gautam SINGULAIR 10 MG TABS 1 PO QHS MONTELUKAST SODIUM 90521667961 No Longer Active Mili Gautam ZOSTAVAX 88029 UNT/0.65ML SOLR 1 injection once to prevent Shingles ZOSTER VACCINE LIVE 10186645302 No Longer Active Mili Gautam MOBIC 15 MG TABS 1 PO daily MELOXICAM 20615613738 Active Lyly Zheng BACTRIM DS 800-160 MG TAB 1 PO BID TRIMETHOPRIM- SULFAMETHOXAZOLE 36671964507 No Longer Active Mili Gautam AUGMENTIN 500-125 MG TAB 1 PO BID AMOXICILLIN-POT CLAVULANATE 14312951352 No Longer Active Mili Gautam TERAZOL 7 0.4 % CREA 1 applicator full per vagina QHS for 7 days TERCONAZOLE VAGINAL 93553758057 No Longer Active Mili Gautam ANUSOL-HC 2.5 % CREAM apply to affected area TID prn HYDROCORTISONE (RECTAL) 15948544404 Active Mili Gautam AUGMENTIN 500-125 MG TAB 1 PO BID AMOXICILLIN-POT CLAVULANATE 60549939046 No Longer Active Alexus Patel PYRIDIUM 200 MG TAB 1 PO TID prn urinary urgency PHENAZOPYRIDINE HCL 26384549221 No Longer Active Alexus Patel CIPRO 250 MG TABS 1 PO BID CIPROFLOXACIN HCL 43481506615 No Longer Active Alexus Patel ANUSOL-HC 25 MG SUPPOSITORY 1 TX TID prn HYDROCORTISONE NATALIE ( RECTAL) 91434688741 No Longer Active Mili Gautam ANUSOL-HC 2.5 % CREAM as directed HYDROCORTISONE (RECTAL) 72081519321 No Longer Active Mili Gautam ADVAIR DISKUS 250-50 MCG/DOSE MISC 1 Puff BID FLUTICASONE-SALMETEROL 86582648695 No Longer Active Miligt Gautam LASIX 40 MG TABS 1 PO daily prn for swelling FUROSEMIDE 89157823367 No Longer Active Miligt Gautam CEFDINIR 300 MG CAPS 1 PO BID CEFDINIR 73147846473 No Longer Active Mili WALDROP'S NASAL SPRAY (DEXAMETHASONE, GENTAMICIN, SALINE) 2 puffs each nostril TID for [address] WALDROP'Lashay NASAL SPRAY ( DEXAMETHASONE, GENTAMICIN, SALINE) No Longer Active Miligt Gautam PREMARIN 0.625 MG/GM CREA apply 2 inch ribbon outside the urethra once night a week ESTROGENS, CONJUGATED VAGINAL 41529640540 No Longer Active Mili Gautam BACTROBAN 2 % CREAM Apply to affected area TID. MUPIROCIN CALCIUM 48353861147 No Longer Active Mili Gautam NYSTATIN 313484 UNIT/GM CREA apply to affected areas TID for 7 days NYSTATIN 46822255777 No Longer Active Mili Gautam FLAGYL 500 MG TABS 1 PO TID METRONIDAZOLE 18794813503 No Longer Active Miligt Gautam LEVAQUIN 500 MG TAB 1 PO QD LEVOFLOXACIN 85287684464 No Longer Active Miligt Gautam FLAGYL 500 MG TABS 1 PO TID METRONIDAZOLE 84701629724 No Longer Active Mili Malka Gautam LEVAQUIN 500 MG TAB 1 PO QD LEVOFLOXACIN 49672449893 No Longer Active Miligt Gautam LAMISIL 250 MG TABS 1 PO daily TERBINAFINE HCL 70539621036 No Longer Active Mili Malka Gautam PYRIDIUM 200 MG TAB 1 PO TID prn urinary urgency PHENAZOPYRIDINE HCL 22346318308 No Longer Active Mili Gautam FISH OIL 1000 MG CAPS 2 PO QD OMEGA-3 FATTY ACIDS 81911175373 Active Miligt Gautam ESTRACE 1 MG TABS 1 PO daily ESTRADIOL 83387298142 Active Alexus Patel CEPHALEXIN 500 MG CAPS 1 po TID x 5 days CEPHALEXIN 17730466566 No Longer Active Mili Malka Gautam PYRIDIUM 200 MG TAB 1 PO TID prn urinary urgency PHENAZOPYRIDINE HCL 25831859781 No Longer Active Dorina Armond MIRALAX POWD 1 scoop in 1/2 cup water every 3 hrs prn constipation. POLYETHYLENE GLYCOL 3350 86073886343 No Longer Active Mili Gautam PYRIDIUM 200 MG TABS 1 po TID x 3 days PHENAZOPYRIDINE HCL 31761889288 No Longer Active Alexus Patel AUGMENTIN 500-125 MG TAB 1 PO BID x 7 days AMOXICILLIN-POT CLAVULANATE 65219583493 No Longer Active Mili Gautam SYNTHROID 0.05 MG TAB 1 PO daily on empty stomach LEVOTHYROXINE SODIUM 02757027998 Active Alexus Patel ROBITUSSIN A-C 10-100 MG/5ML SYRUP 1 teaspoon PO Q 4-6 hr prn ROBITUSSIN A-C 10-100 MG/5ML SYRUP No Longer Active Mili WALDROP'S NASAL SPRAY (DEXAMETHASONE, GENTAMICIN, SALINE) 2 puffs each nostril TID for [address] PANDEY NASAL SPRAY ( DEXAMETHASONE, GENTAMICIN, SALINE) No Longer Active Mili Gautam CIPRO 500 MG TAB 1 PO BID for 7 days CIPROFLOXACIN HCL 69004240942 No Longer Active Mili Malka Gautam TABS 1 PO BID prn for nervous stomach PHENOBARBITAL-BELLADONNA ALK 06586156146 No Longer Active Mili Malka Gautam AUGMENTIN 875-125 MG TAB 1 PO BID AMOXICILLIN-POT CLAVULANATE 75042825046 No Longer Active Mili Malka Gautam TESSALON 200 MG CAPS 1 PO TID prn cough BENZONATATE 43464776870 No Longer Active Mili Malka Gautam ALEVE 220 MG TABS 1 PO BID NAPROXEN SODIUM 26031911467 No Longer Active Miligt WALDROP'Lashay NASAL SPRAY (DEXAMETHASONE, GENTAMICIN, SALINE) 2 puffs each nostril TID for [address] WALDROP'Lashay NASAL SPRAY ( DEXAMETHASONE, GENTAMICIN, SALINE) No Longer Active Mili Gautam CIPRO 500 MG TABS 1 PO BID CIPROFLOXACIN HCL 20130255031 No Longer Active Mili Gautam PYRIDIUM 200 MG TAB 1 PO TID prn urinary urgency PHENAZOPYRIDINE HCL 29782529457 No Longer Active Chacorta Wylie AUGMENTIN 500-125 MG TAB 1 PO BID AMOXICILLIN-POT CLAVULANATE 50627151300 No Longer Active Chacorta Wylie IBUPROFEN 400 MG TABS 1 po TID IBUPROFEN 41540498316 No Longer Active Miligt Gautam VITAMIN D 1000 UNIT TABS 1 PO Daily CHOLECALCIFEROL 52569004259 Active Mili Malka Gautam PYRIDIUM 200 MG TABS 1 po TID x 3 days PHENAZOPYRIDINE HCL 06330269780 No Longer Active Alexus Patel MACROBID 100 MG CAPS 1 po BID x 7 days NITROFURANTOIN MONOHYD MACRO 56605785192 No Longer Active Alexus Patel CRANBERRY 300 MG TABS 1 PO daily CRANBERRY 84532697322 No Longer Active Mili Malka Gautam BACTROBAN 2 % OINT Apply QID prn MUPIROCIN 04432038651 No Longer Active Mili Malka Gautam CEPHALEXIN 500 MG TABS 1 po QID x 10 days CEPHALEXIN 26480750153 No Longer Active Mili Malka Gautam NAPROXEN 500 MG TABS ! PO Q6hrs prn NAPROXEN 09242975489 No Longer Active Mili Malka Gautam VITAMIN B-12 1000 MCG TABS 1 po daily CYANOCOBALAMIN 93531748843 No Longer Active Mili Malka Gautam GINKOBA 40 MG TABS 1 PO daily GINKGO BILOBA 75950785329 No Longer Active Mili Makla Gautam PROMETHAZINE HCL 25 MG TABS 1 PO Q6hrs prn nausea PROMETHAZINE HCL 96647164270 No Longer Active Mili Malka Gautam PYRIDIUM 200 MG TAB 1 PO TID for 3 days PHENAZOPYRIDINE HCL 72547774978 No Longer Active Mili Malka Gautam PRAVACHOL 20 MG TABS 1 po daily PRAVASTATIN SODIUM 73939663951 Active Alexuscandelaria Patel PYRIDIUM 200 MG TAB 1 PO TID PHENAZOPYRIDINE HCL 36732211953 No Longer Active Mili Malka Gautam AUGMENTIN 500-125 MG TAB 1 PO BID AMOXICILLIN-POT CLAVULANATE 19359113465 No Longer Active Mili Malka Gautam AUGMENTIN 500-125 MG TAB 1 PO BID AMOXICILLIN-POT CLAVULANATE 79672991109 No Longer Active Mili Malka Gautam BACTRIM DS 800-160 MG TAB 1 po BID for 7 days TRIMETHOPRIM-SULFAMETHOXAZOLE 97742636807 No Longer Active Zahraa PANDEY NASAL SPRAY (DEXAMETHASONE, GENTAMICIN, SALINE) 2 puffs each nostril TID DR. PANDEY NASAL SPRAY (DEXAMETHASONE, GENTAMICIN, SALINE) No Longer Active Mili Gautam AUGMENTIN 500-125 MG TAB 1 PO BID AMOXICILLIN-POT CLAVULANATE 03967104426 No Longer Active Mili Gautam MUCINEX 600 MG TB12 1 po BID GUAIFENESIN 79965413783 No Longer Active Mili Gautam MUCINEX 600 MG TB12 1 PO BID for 7 days GUAIFENESIN 55219858722 No Longer Active Mili Gautam AUGMENTIN 875-125 MG TAB 1 PO BID AMOXICILLIN-POT CLAVULANATE 62778657922 No Longer Active Mili PANDEY NASAL SPRAY (DEXAMETHASONE, GENTAMICIN, SALINE) 2 puffs each nostril TID for [address] PANDEY NASAL SPRAY ( DEXAMETHASONE, GENTAMICIN, SALINE) No Longer Active Alexus Patel DOXYCYCLINE HYCLATE 100 MG CAP 1 po BID for 7 days DOXYCYCLINE HYCLATE 55561940392 No Longer Active Alexus Patel DECADRON/GARAMYCIN NASAL SPRAY 1 spray BID prn from Dr Waldrop 2005 DECADRON/GARAMYCIN NASAL SPRAY No Longer Active Mili PANDEY NASAL SPRAY (DEXAMETHASONE, GENTAMICIN, SALINE) 2 puffs each nostril TID for [address] PANDEY NASAL SPRAY ( DEXAMETHASONE, GENTAMICIN, SALINE) No Longer Active Mili Gautam AUGMENTIN 875-125 MG TAB 1 PO BID for 7 days AMOXICILLIN-POT CLAVULANATE 17587360956 No Longer Active Mili Gautam GARLIC 500 MG CAPS 1 PO daily GARLIC 22909430674 Active Mili Malka Gautam VALIUM 2 MG TAB 1 PO Q6hrs prn DIAZEPAM 43301348993 No Longer Active Mili Malka Gautam KENALOG 0.1 % CREA apply to affected areas on skin BID for 7 days TRIAMCINOLONE ACETONIDE 79325446892 No Longer Active Mili Malka Gautam DOXYCYCLINE HYCLATE 100 MG CAPS 1 PO BID DOXYCYCLINE HYCLATE 75308063777 No Longer Active Mili Malka Gautam HYDROCHLOROTHIAZIDE 12.5 MG CAPS 1 PO QD HYDROCHLOROTHIAZIDE 97857018233 Active Alexus Patel DIOVAN 320 MG TABS 1 PO daily for BP VALSARTAN 63731648099 Active Alexus Patel K-DUR 20 MEQ TAB CR 1 PO QOD POTASSIUM CHLORIDE 96646194903 No Longer Active Mili Malka Gautam ZYRTEC 10 MG TABS 1 po daily prn CETIRIZINE HCL 50066300891 Active Mili Malka Gautam XANAX 0.25 MG TABS 1 po q 6 hrs. prn ALPRAZOLAM 64253101333 Active Mili Malka Gautam LASIX 40 MG TAB 1 PO QOD FUROSEMIDE 45020648099 No Longer Active Mili Malka Gautam NORVASC 10 MG TAB 1 PO QD AMLODIPINE BESYLATE 95668801137 No Longer Active Mili Malka Gautam DIOVAN HCT 160-12.5 MG TABS 2 PO QD VALSARTAN- HYDROCHLOROTHIAZIDE 45656659068 No Longer Active Crystal LaGalle PAXIL CR 12.5 MG TB24 1 PO QD PAROXETINE HCL 27263265600 No Longer Active Mili Malka Gautam CORICIDIN HBP FLU 15-500-2 MG TABS 1 PO Q12hrs DM- APAP-CPM 13636592661 No Longer Active Mili Malka Gautam XANAX 0.25 MG TABS 1 every 4-6hrs scheduled ALPRAZOLAM 92628277479 No Longer Active Mili Malka Gautam PREMARIN 1.25 MG TABS 1 PO QD ESTROGENS CONJUGATED 89679421038 No Longer Active Alexus Patel CENESTIN 1.25 MG TABS 1 po daily ESTROGENS CONJ SYNTHETIC A 88652565844 No Longer Active Mili Malka Gautam BUSPAR 5 MG TABS 1/2 - 1 tab PO QD prn BUSPIRONE HCL 89767121671 No Longer Active Mili Malka Gautam BACTRIM DS 800-160 MG TAB 1 PO BID TRIMETHOPRIM- SULFAMETHOXAZOLE 95096012554 No Longer Active Miligt Gautam LIPITOR 10 MG TABS 1/2 po daily ATORVASTATIN CALCIUM 76677149447 No Longer Active Chrissy Piva ASPIRIN 81 MG TABS 1 PO QD ASPIRIN 89833967188 Active Miligt Gautam CITRACAL + D 250-62.5 MG-IU TABS 1 po daily CALCIUM CITRATE-VITAMIN D 43335240797 Active Mili Malka Gautam MULTIVITAMINS TABS 1 po daily MULTIPLE VITAMIN 61642863105 Active Miligt Gautam KLOR-CON M10 10 MEQ TBCR 1 po daily POTASSIUM CHLORIDE CK CR 72705960745 Active Alexus Patel NADOLOL 40 MG TABS 1 po daily NADOLOL 88058859312 Active Alexus Patel Immunizations Vaccine Administration Date Value Standard Description Influenza vaccine given done influenza virus vaccine, unspecified formulation Vital Signs Date Name Value Unit Range Description blood pressure, diastolic - 8462-4 80 mm[Hg] BP arriaga blood pressure, systolic - 8480-6 155 mm[Hg] BP sys pulse rate E&M - 8867-4 80 /min Heart rate respiratory rate E&M - 9279-1 14 /min Resp rate temperature E&M 98.6 [degF] Body temperature weight E&M - 3141-9 199 [lb_av] Weight Measured blood pressure, diastolic - [...] E&M - 3141-9 202 [lb_av] Weight Measured Diagnostic Results Date Name Value Unit Range Description Clinical Lists Update: CBC,CMP,Chol,Trig,TSH,Free T4,UA - Chemistry Estimated Glomerular Filtration Rate (calc) 68 mL/min/1.73m2 glucose, plasma fasting 108 mg/dL albumin, serum 4.3 g/dL alkaline phosphatase, serum 68 U/L urea nitrogen, blood 19 mg/dL calcium, serum 9.6 mg/dL chloride, serum 102 mmol/L cholesterol, serum 205 mg/dL anion gap, serum 10 sodium, serum 138 mmol/L triglyceride, serum, fasting 209 mg/dL bilirubin, serum, total 0.5 mg/dL alanine aminotransferase (SGPT), serum 12 U/L aspartate aminotransferase (SGOT), serum 17 U/L protein, total, serum 6.5 g/dL potassium, serum 4.8 mmol/L thyroid stimulating hormone, serum 2.26 u[iU]/mL thyroxine, serum, free 0.87 ng/dL creatinine, serum 0.9 mg/dL carbon dioxide, venous blood 31.0 mmol/L Clinical Lists Update: CBC,CMP,Chol,Trig,TSH,Free T4,UA - Hematology hemoglobin, blood 13.1 g/dL platelet count 171 10*3/mm3 erythrocyte (RBC) count 4.17 10*6/mm3 leukocyte count, blood 8.9 10*3/mm3 mean corpuscular volume, RBC 99 fL red blood cell distribution width 13.5 % hematocrit, blood 41 % Clinical Lists Update: CBC,CMP,Chol,Trig,TSH,Free T4,UA - Urinalysis blood in urine (hemoglobin) by dipstick moderate mucus on urinalysis 1+ epithelial cells, urine 5-10 /[LPF] hyaline casts, urine none /[LPF] bacteria, urine microscopy 3+ RBC urine by microscopy 20-30 WBC urine on microscopy TNTC {Cells}/[HPF] appearance, urine Cloudy Yellow urobilinogen, urine, semiquantitative (dipstick) 0.2 specific gravity, urine >1.030 pH, urine, semiquantitative 5.5 nitrite, urine, semiquantitative positive ketones, urine, by test strip neg bilirubin, urine neg glucose, urine, semiquantitative neg protein, urine, semiquantitative (dipstick) 100 Clinical Lists Update: CMP,FLP,TSH,FREE T4 - Chemistry Estimated Glomerular Filtration Rate (calc) 69 mL/min/1.73m2 glucose, plasma fasting 101 mg/dL albumin, serum 4.1 g/dL alkaline phosphatase, serum 53 U/L urea nitrogen, blood 16 mg/dL calcium, serum 9.3 mg/dL chloride, serum 102 mmol/L cholesterol, serum 199 mg/dL carbon dioxide, venous blood 29.0 mmol/L creatinine, serum 0.9 mg/dL thyroxine, serum, free 1.04 ng/dL HDL cholesterol, serum 45.0 mg/dL thyroid stimulating hormone, serum 2.58 u[iU]/mL LDL cholesterol, serum 106 mg/dL potassium, serum 4.1 mmol/L protein, total, serum 6.2 g/dL aspartate aminotransferase (SGOT), serum 16 U/L cholesterol/HDL ratio, serum, percent 4.2 anion gap, serum 13 sodium, serum 137 mmol/L triglyceride, serum, fasting 216 mg/dL bilirubin, serum, total 0.6 mg/dL alanine aminotransferase (SGPT), serum 11 U/L aspartate aminotransferase (SGOT), serum 16 U/L protein, total, serum 6.2 g/dL potassium, serum 4.5 mmol/L LDL cholesterol, serum 102 mg/dL thyroid stimulating hormone, serum 2.70 u[iU]/mL HDL cholesterol, serum 46.0 mg/dL thyroxine, serum, free 0.94 ng/dL creatinine, serum 0.9 mg/dL carbon dioxide, venous blood 29.0 mmol/L cholesterol, serum 191 mg/dL chloride, serum 100 mmol/L calcium, serum 9.2 mg/dL urea nitrogen, blood 17 mg/dL alkaline phosphatase, serum 46 U/L albumin, serum 4.2 g/dL Estimated Glomerular Filtration Rate (calc) 70 mL/min/1.73m2 glucose, plasma fasting 95 mg/dL cholesterol/HDL ratio, serum, percent 4.4 anion gap, serum 10 sodium, serum 137 mmol/L triglyceride, serum, fasting 238 mg/dL bilirubin, serum, total 0.6 mg/dL alanine aminotransferase (SGPT), serum 12 U/L Clinical Lists Update: UA - Urinalysis blood in urine (hemoglobin) by dipstick Small protein, urine, semiquantitative (dipstick) Trace bilirubin, urine Neg ketones, urine, by test strip Neg nitrite, urine, semiquantitative neg pH, urine, semiquantitative 5.5 specific gravity, urine 1.025 urobilinogen, urine, semiquantitative (dipstick) 0.2 appearance, urine Cloudy Yellow WBC urine on microscopy 10-20 {Cells}/[HPF] RBC urine by microscopy 0-2 bacteria, urine microscopy 1+ hyaline casts, urine None /[LPF] epithelial cells, urine 10-20 /[LPF] mucus on urinalysis None glucose, urine, semiquantitative Neg Encounters Code Encounter Date Provider Facility CPT-68123 Ofc Vst, Est Level III 13:26:46 CDT Mili Gautam DO, FACP CPT-88101 Ofc Vst, Est Level III 17:39:31 [employer] Mili Gautam DO, FACP CPT-50012 Ofc Vst, Est Level III 15:09:46 [employer] Mili Gautam [facility] CPT-93030 Ofc Vst, Est Level III 17:42:49 [employer] Mili Gautam DO, FACP CPT-65226 Ofc Vst, Est Level III 14:15:29 [facility] Mili Gautam, DO, FACP CPT-09378 Ofc Vst, Est Level III 12:57:33 [facility] [facility] Mili Gautam, DO, FACP CPT-67525 Ofc Vst, Est Level IV 13:36:51 [facility] [facility] Mili Gautam, DO, FACP CPT-19743 Ofc Vst, Est Level III 13:13:04 [facility] [facility] Mili Gautam, DO, FACP CPT-27437 Ofc Vst, Est Level III 14:17:29 CDT Mili Gautam, DO, FACP CPT-35473 Ofc Vst, Est Level III 16:26:29 CDT Mili Gautam, DO, FACP CPT-90269 Ofc Vst, Est Level III 15:16:40 CDT Mili Kirani S Gautam, DO, FACP CPT-48672 Ofc Vst, Est Level III 12:01:38 CDT Mili Metz Gautam, DO, FACP CPT-57269 Ofc Vst, Est Level III 19:36:46 [employer] Miil Metz Gautam, DO, FACP CPT-01832 Ofc Vst, Est Level III 15:45:49 [facility] Mili Metz Gautam, DO, FACP CPT-99718 Ofc Vst, Est Level IV 14:05:12 CDT Mili Metz Lotus, DO, FACP CPT-73780 Ofc Vst, Est Level IV 11:38:35 [facility] Mili Metz Lotus, DO, FACP CPT-02222 Ofc Vst, Est Level IV 12:15:39 [facility] Mili Metz Lotus, DO, FACP CPT-13346 Ofc Vst, Est Level IV 10:49:39 CDT Miligt Metz Lotus, DO, FACP CPT-89141 Ofc Vst, Est Level III 11:12:31 CDT Mili Metz Lotus, DO, FACP CPT-24319 Ofc Vst, Est Level IV 11:24:11 CDT Miligt Metz Lotus, DO, FACP CPT-24643 Ofc Vst, Est Level IV 10:56:53 [employer] Mili Metz Gautam, DO, FACP CPT-88614 Ofc Vst, Est Level IV 10:23:39 CDT Mili Metz Gautam, DO, FACP CPT-77944 Ofc Vst, Est Level IV 13:45:21 CDT Miligt Metz Gautam, DO, FACP CPT-75831 Ofc Vst, Est Level III 14:30:43 CDT Miligt [facility] CPT-34168 Ofc Vst, Est Level IV 10:27:11 [employer] Mili Metz Lotus, DO, FACP CPT-37607 Ofc Vst, Est Level IV 10:00:49 CDT Mili Malka Metz Lotus, DO, FACP CPT-74073 Ofc Vst, Est Level III 16:29:04 CDT Miligt Metz Lotus, DO, FACP CPT-93950 Ofc Vst, Est Level IV 10:17:09 CDT Mili Malka Metz Lotus, DO, FACP CPT-05727 Ofc Vst, Est Level IV 09:20:45 [employer] Miligt Metz Lotus, DO, FACP CPT-78913 Ofc Vst, Est Level IV 10:24:24 CDT Miligt Metz Lotus, DO, FACP CPT-44631 Ofc Vst, Est Level III 13:19:51 CDT Miligt Metz Lotus, DO, FACP CPT-61667 Ofc Vst, Est Level IV 16:20:29 CDT Mili Malka Metz Lotus, DO, FACP CPT-44658 Ofc Vst, Est Level IV 10:16:23 CDT Miligt Metz Lotus, DO, FACP CPT-19472 Ofc Vst, Est Level IV 10:30:07 [employer] Mili eMtz Lotus, DO, FACP CPT-15192 Ofc Vst, Est Level III 10:40:49 CDT Mili Malka Metz Lotus, DO, FACP CPT-77536 Ofc Vst, Est Level III 10:16:25 CDT Miligt Gautam, DO, FACP CPT-63065 Ofc Vst, Est Level III 10:25:50 CDT Mili Malka Gautam, DO, FACP CPT-67278 Ofc Vst, Est Level IV 10:39:21 CDT Miligt Gautam [facility] [place] CPT-06457 Ofc Vst, Est Level IV 16:03:05 CDT Mili Malka Gautam [facility] [place] CPT-56208 Ofc Vst, Est Level III 14:54:11 [employer] Mili Gautam [facility] [place] CPT-60302 Ofc Vst, Est Level III 15:34:35 CDT Miligt Gautam [facility] [place] CPT-54668 Ofc Vst, Est Level IV 10:31:02 CDT Mili Malka Gautam [facility] [place] CPT-74539 Ofc Vst, Est Level III 11:13:15 CDT Mili Malka Gautam [facility] [place] CPT-32185 Ofc Vst, Est Level IV 10:12:47 CDT Miligt Gautam [facility] [place] CPT-04400 Ofc Vst, Est Level III 15:47:34 [employer] Mili Gautam [facility] [place] CPT-99708 Ofc Vst, Est Level IV 11:06:54 [employer] Mili Gautam [facility] [place] CPT-77626 Ofc Vst, Est Level IV 10:42:38 CDT Miligt Gautam [facility] [place] CPT-18115 Ofc Vst, Est Level IV 11:22:18 CDT Miligt Gautam [facility] [place] CPT-44433 Ofc Vst, Est Level IV 15:48:16 CDT Mili Malka Gautam [facility] [place] CPT-94568 Ofc Vst, Est Level IV 13:08:33 CDT Mili Gautam [facility] [place] CPT-32085 Ofc Vst, Est Level III 13:21:55 [employer] Mili Gautam [facility] [place] CPT-71326 Ofc Vst, Est Level IV 13:13:53 [employer] Mili Gautam [facility] [place] CPT-20533 Ofc Vst, Est Level III 17:49:28 [employer] Mili Gautam [facility] [place] CPT-77808 Ofc Vst, Est Level IV 17:29:41 [employer] Mili Gautam [facility] [place] CPT-42102 Ofc Vst, Est Level IV 13:09:45 [employer] Mili Gautam [facility] [place] CPT-40469 Ofc Vst, Est Level IV 19:10:11 CDT Mili Malkagurinder Gautam [facility] [place] CPT-43188 Ofc Vst, New Level IV 18:05:12 CDT Mili Gautam [facility] [place] Procedures Code Procedure Name Date Entry Date Standard Description CPT-G0439 Medicare Annual Wellness Visit 14:47:54 CDT CPT-G0439 Medicare Annual Wellness Visit 14:05:26 CDT CPT-G8446 E-Prescribing not done due to controlled substance 14:15 :29 [employer] CPT-G8443 E-Prescribing Medication Sent 12:57:33 [employer] CPT-G8445 E-Prescribing Not sent due to no medication given 13:36: 51 [employer] CPT-G8443 E-Prescribing Medication Sent 13:13:04 [employer] CPT-G8443 E-Prescribing Medication Sent 14:17:29 CDT CPT-G8443 E-Prescribing Medication Sent 16:26:29 CDT CPT-G8445 E-Prescribing Not sent due to no medication given 15:16: 40 CDT CPT-G8445 E-Prescribing Not sent due to no medication given 12:01: 38 CDT CPT-G8445 E-Prescribing Not sent due to no medication given 19:36: 46 [employer] CPT-G8443 E-Prescribing Medication Sent 15:45:49 [employer] CPT-G8443 E-Prescribing Medication Sent 15:32:38 CDT CPT-G0438 Medicare Annual Wellness Visit Initial 15:32:38 CDT CPT-G8446 E-Prescribing not done due to controlled substance 16:29 :04 CDT CPT-G8443 E-Prescribing Medication Sent 10:17:09 CDT CPT-81869 Injection, Pneumovax 10:24:24 CDT CPT-00657 Excision of Benign Lesion 2.1-3.0 cm 10:32:03 CDT 09/22 CPT-97621 Excision of Malignant lesion 2.1-3.0 cm 16:12:48 CDT
--- OUTSIDE RECORDS SUMMARY | 2017-09-22 08:55 | XMS REPORT | Clinical Summary ---
Author Author User, MARA Organization [facility] Address Unknown Phone Allergies, Adverse Reactions, [...] of unspecified sites URTICARIA, ACUTE 708.9 Resolved Miil Gautam Unspecified urticaria SINUSITIS 473.9 Resolved Mili [...] TABS 1 PO DAILY PRN SWELLING FUROSEMIDE 99216569854 Active Alexus Patel DIFLUCAN 100 MG TAB 1 PO daily for 3 days FLUCONAZOLE 77735924206 No Longer Active Alexus Patel PROAIR HFA 108 (90 BASE) MCG/ACT AERS 2 puff Q4 hrs prn wheezing ALBUTEROL SULFATE 27091035651 No Longer Active Mili Gautam SINGULAIR 10 MG TABS 1 PO QHS MONTELUKAST SODIUM 37447487153 No Longer Active Mili Gautam ZOSTAVAX 65188 UNT/0.65ML SOLR 1 injection once to prevent Shingles ZOSTER VACCINE LIVE 15046212841 No Longer Active Mili Gautam MOBIC 15 MG TABS 1 PO daily MELOXICAM 40001734661 Active Alexus Patel BACTRIM DS 800-160 MG TAB 1 PO BID TRIMETHOPRIM- SULFAMETHOXAZOLE 93380118757 No Longer Active Mili Gautam AUGMENTIN 500-125 MG TAB 1 PO BID AMOXICILLIN-POT CLAVULANATE 68851002159 No Longer Active Mili Gautam TERAZOL 7 0.4 % CREA 1 applicator full per vagina QHS for 7 days TERCONAZOLE VAGINAL 92092605423 No Longer Active Mili Gautam ANUSOL-HC 2.5 % CREAM apply to affected area TID prn HYDROCORTISONE (RECTAL) 46562164472 Active Mili Gautam AUGMENTIN 500-125 MG TAB 1 PO BID AMOXICILLIN-POT CLAVULANATE 45618446921 No Longer Active Alexus Patel PYRIDIUM 200 MG TAB 1 PO TID prn urinary urgency PHENAZOPYRIDINE HCL 52765848671 No Longer Active Alexus Patel CIPRO 250 MG TABS 1 PO BID CIPROFLOXACIN HCL 19352472158 No Longer Active Alexus Patel ANUSOL-HC 25 MG SUPPOSITORY 1 GA TID prn HYDROCORTISONE NATALIE ( RECTAL) 74467825633 No Longer Active Mili Gautam ANUSOL-HC 2.5 % CREAM as directed HYDROCORTISONE (RECTAL) 17315748273 No Longer Active Miligt Gautam ADVAIR DISKUS 250-50 MCG/DOSE MISC 1 Puff BID FLUTICASONE-SALMETEROL 94487017389 No Longer Active Mili Malka Gautam LASIX 40 MG TABS 1 PO daily prn for swelling FUROSEMIDE 21342538248 No Longer Active Mili Malka Gautam CEFDINIR 300 MG CAPS 1 PO BID CEFDINIR 85460503410 No Longer Active Miligt WALDROP'S NASAL SPRAY (DEXAMETHASONE, GENTAMICIN, SALINE) 2 puffs each nostril TID for [address] WALDROP'Lashay NASAL SPRAY ( DEXAMETHASONE, GENTAMICIN, SALINE) No Longer Active Miligt Gautam PREMARIN 0.625 MG/GM CREA apply 2 inch ribbon outside the urethra once night a week ESTROGENS, CONJUGATED VAGINAL 14903734575 No Longer Active Miligt Gautam BACTROBAN 2 % CREAM Apply to affected area TID. MUPIROCIN CALCIUM 49593246639 No Longer Active Miligt Gautam NYSTATIN 797280 UNIT/GM CREA apply to affected areas TID for 7 days NYSTATIN 19203995244 No Longer Active Miligt Gautam FLAGYL 500 MG TABS 1 PO TID METRONIDAZOLE 97345842404 No Longer Active Miligt Gautam LEVAQUIN 500 MG TAB 1 PO QD LEVOFLOXACIN 05632869718 No Longer Active Mili Malka Gautam FLAGYL 500 MG TABS 1 PO TID METRONIDAZOLE 10441544542 No Longer Active Mili Malka Gautam LEVAQUIN 500 MG TAB 1 PO QD LEVOFLOXACIN 42904806416 No Longer Active Mili Malka Gautam LAMISIL 250 MG TABS 1 PO daily TERBINAFINE HCL 38654835830 No Longer Active Mili Malka Gautam PYRIDIUM 200 MG TAB 1 PO TID prn urinary urgency PHENAZOPYRIDINE HCL 97487791938 No Longer Active Miligt Gautam FISH OIL 1000 MG CAPS 2 PO QD OMEGA-3 FATTY ACIDS 06504907519 Active Mili Gautam ESTRACE 1 MG TABS 1 PO daily ESTRADIOL 95114615547 Active Nicola Macias CEPHALEXIN 500 MG CAPS 1 po TID x 5 days CEPHALEXIN 92476685036 No Longer Active Mili Malka Gautam PYRIDIUM 200 MG TAB 1 PO TID prn urinary urgency PHENAZOPYRIDINE HCL 21639525491 No Longer Active Dorina Armond MIRALAX POWD 1 scoop in 1/2 cup water every 3 hrs prn constipation. POLYETHYLENE GLYCOL 3350 57957350970 No Longer Active Miligt Gautam PYRIDIUM 200 MG TABS 1 po TID x 3 days PHENAZOPYRIDINE HCL 75369974140 No Longer Active Alexus Patel AUGMENTIN 500-125 MG TAB 1 PO BID x 7 days AMOXICILLIN-POT CLAVULANATE 09920951810 No Longer Active Mili Gautam SYNTHROID 0.05 MG TAB 1 PO daily on empty stomach LEVOTHYROXINE SODIUM 91140754302 Active Alexus Patel ROBITUSSIN A-C 10-100 MG/5ML SYRUP 1 teaspoon PO Q 4-6 hr prn ROBITUSSIN A-C 10-100 MG/5ML SYRUP No Longer Active Mili WALDROP'S NASAL SPRAY (DEXAMETHASONE, GENTAMICIN, SALINE) 2 puffs each nostril TID for [address] PANDEY NASAL SPRAY ( DEXAMETHASONE, GENTAMICIN, SALINE) No Longer Active Mili Gautam CIPRO 500 MG TAB 1 PO BID for 7 days CIPROFLOXACIN HCL 28247100187 No Longer Active Mili Gautam TABS 1 PO BID prn for nervous stomach PHENOBARBITAL-BELLADONNA ALK 63736089406 No Longer Active Mili Gautam AUGMENTIN 875-125 MG TAB 1 PO BID AMOXICILLIN-POT CLAVULANATE 15884715204 No Longer Active Miligt Gautam TESSALON 200 MG CAPS 1 PO TID prn cough BENZONATATE 07320354327 No Longer Active Mili Gautam ALEVE 220 MG TABS 1 PO BID NAPROXEN SODIUM 37082179643 No Longer Active Mili WALDROP'Lashay NASAL SPRAY (DEXAMETHASONE, GENTAMICIN, SALINE) 2 puffs each nostril TID for [address] WALDROP'Lashay NASAL SPRAY ( DEXAMETHASONE, GENTAMICIN, SALINE) No Longer Active Mili Gautam CIPRO 500 MG TABS 1 PO BID CIPROFLOXACIN HCL 27044560049 No Longer Active Mili Gautam PYRIDIUM 200 MG TAB 1 PO TID prn urinary urgency PHENAZOPYRIDINE HCL 86743700584 No Longer Active Chacorta Wylie AUGMENTIN 500-125 MG TAB 1 PO BID AMOXICILLIN-POT CLAVULANATE 74023142735 No Longer Active Chacorta Wylie IBUPROFEN 400 MG TABS 1 po TID IBUPROFEN 63890093238 No Longer Active Mili Gautam VITAMIN D 1000 UNIT TABS 1 PO Daily CHOLECALCIFEROL 01225170299 Active Miligt Gautam PYRIDIUM 200 MG TABS 1 po TID x 3 days PHENAZOPYRIDINE HCL 22292954647 No Longer Active Alexus Patel MACROBID 100 MG CAPS 1 po BID x 7 days NITROFURANTOIN MONOHYD MACRO 11216644411 No Longer Active Alexus Patel CRANBERRY 300 MG TABS 1 PO daily CRANBERRY 43753244538 No Longer Active Mili Malka Gautam BACTROBAN 2 % OINT Apply QID prn MUPIROCIN 26093694355 No Longer Active Mili Malka Gautam CEPHALEXIN 500 MG TABS 1 po QID x 10 days CEPHALEXIN 64276520915 No Longer Active Mili Malka Gautam NAPROXEN 500 MG TABS ! PO Q6hrs prn NAPROXEN 53936424683 No Longer Active Mili Malka Gautam VITAMIN B-12 1000 MCG TABS 1 po daily CYANOCOBALAMIN 40381558565 No Longer Active Mili Malka Gautam GINKOBA 40 MG TABS 1 PO daily GINKGO BILOBA 82228890686 No Longer Active Mili Malka Gautam PROMETHAZINE HCL 25 MG TABS 1 PO Q6hrs prn nausea PROMETHAZINE HCL 23975937239 No Longer Active Mili Malka Gautam PYRIDIUM 200 MG TAB 1 PO TID for 3 days PHENAZOPYRIDINE HCL 75029278648 No Longer Active Mili Malka Gautam PRAVACHOL 20 MG TABS 1 po daily PRAVASTATIN SODIUM 55833040537 Active Nicola Macias PYRIDIUM 200 MG TAB 1 PO TID PHENAZOPYRIDINE HCL 51559194002 No Longer Active Mili Malka Gautam AUGMENTIN 500-125 MG TAB 1 PO BID AMOXICILLIN-POT CLAVULANATE 77993309798 No Longer Active Mili Malka Gautam AUGMENTIN 500-125 MG TAB 1 PO BID AMOXICILLIN-POT CLAVULANATE 84971214290 No Longer Active Mili Malka Gautam BACTRIM DS 800-160 MG TAB 1 po BID for 7 days TRIMETHOPRIM-SULFAMETHOXAZOLE 67462454501 No Longer Active Zahraa PANDEY NASAL SPRAY (DEXAMETHASONE, GENTAMICIN, SALINE) 2 puffs each nostril TID DR. PANDEY NASAL SPRAY (DEXAMETHASONE, GENTAMICIN, SALINE) No Longer Active Mili Gautam AUGMENTIN 500-125 MG TAB 1 PO BID AMOXICILLIN-POT CLAVULANATE 86960157575 No Longer Active Mili Gautam MUCINEX 600 MG TB12 1 po BID GUAIFENESIN 86213698862 No Longer Active Mili Gautam MUCINEX 600 MG TB12 1 PO BID for 7 days GUAIFENESIN 10773226977 No Longer Active Mili Gautam AUGMENTIN 875-125 MG TAB 1 PO BID AMOXICILLIN-POT CLAVULANATE 76789910798 No Longer Active Mili PANDEY NASAL SPRAY (DEXAMETHASONE, GENTAMICIN, SALINE) 2 puffs each nostril TID for [address] PANDEY NASAL SPRAY ( DEXAMETHASONE, GENTAMICIN, SALINE) No Longer Active Alexus Patel DOXYCYCLINE HYCLATE 100 MG CAP 1 po BID for 7 days DOXYCYCLINE HYCLATE 98971198745 No Longer Active Alexus Patel DECADRON/GARAMYCIN NASAL SPRAY 1 spray BID prn from Dr Waldrop 2005 DECADRON/GARAMYCIN NASAL SPRAY No Longer Active Mili PANDEY NASAL SPRAY (DEXAMETHASONE, GENTAMICIN, SALINE) 2 puffs each nostril TID for [address] PANDEY NASAL SPRAY ( DEXAMETHASONE, GENTAMICIN, SALINE) No Longer Active Mili Gautam AUGMENTIN 875-125 MG TAB 1 PO BID for 7 days AMOXICILLIN-POT CLAVULANATE 13912473345 No Longer Active Mili Gautam GARLIC 500 MG CAPS 1 PO daily GARLIC 86541252850 Active Mili Malka Gautam VALIUM 2 MG TAB 1 PO Q6hrs prn DIAZEPAM 34068290456 No Longer Active Mili Malka Gautam KENALOG 0.1 % CREA apply to affected areas on skin BID for 7 days TRIAMCINOLONE ACETONIDE 95860748462 No Longer Active Mili Malka Gautam DOXYCYCLINE HYCLATE 100 MG CAPS 1 PO BID DOXYCYCLINE HYCLATE 80207285345 No Longer Active Mili Malka Gautam HYDROCHLOROTHIAZIDE 12.5 MG CAPS 1 PO QD HYDROCHLOROTHIAZIDE 65918023199 Active Nicola Macias DIOVAN 320 MG TABS 1 PO daily for BP VALSARTAN 70353050359 Active Nicola Macias K-DUR 20 MEQ TAB CR 1 PO QOD POTASSIUM CHLORIDE 66715090988 No Longer Active Mili Malka Gautam ZYRTEC 10 MG TABS 1 po daily prn CETIRIZINE HCL 05516378447 Active Mili Malka Gautam XANAX 0.25 MG TABS 1 po q 6 hrs. prn ALPRAZOLAM 82159497525 Active Mili Malka Gautam LASIX 40 MG TAB 1 PO QOD FUROSEMIDE 35207157164 No Longer Active Mili Malka Gautam NORVASC 10 MG TAB 1 PO QD AMLODIPINE BESYLATE 92595576665 No Longer Active Mili Malka Gautam DIOVAN HCT 160-12.5 MG TABS 2 PO QD VALSARTAN- HYDROCHLOROTHIAZIDE 10696700023 No Longer Active Crystal LaGalle PAXIL CR 12.5 MG TB24 1 PO QD PAROXETINE HCL 35665145849 No Longer Active Mili Malka Gautam CORICIDIN HBP FLU 15-500-2 MG TABS 1 PO Q12hrs DM- APAP-CPM 69834490821 No Longer Active Mili Malka Gautam XANAX 0.25 MG TABS 1 every 4-6hrs scheduled ALPRAZOLAM 62422458182 No Longer Active Mili Malka Gautam PREMARIN 1.25 MG TABS 1 PO QD ESTROGENS CONJUGATED 18884413554 No Longer Active Alexus Patel CENESTIN 1.25 MG TABS 1 po daily ESTROGENS CONJ SYNTHETIC A 02233219713 No Longer Active Mili Malka Gautam BUSPAR 5 MG TABS 1/2 - 1 tab PO QD prn BUSPIRONE HCL 49706815752 No Longer Active Mili Malka Gautam BACTRIM DS 800-160 MG TAB 1 PO BID TRIMETHOPRIM- SULFAMETHOXAZOLE 96072739219 No Longer Active Miligt Gautam LIPITOR 10 MG TABS 1/2 po daily ATORVASTATIN CALCIUM 77957516310 No Longer Active Chrissy Piva ASPIRIN 81 MG TABS 1 PO QD ASPIRIN 13081747438 Active Miligt Gautam CITRACAL + D 250-62.5 MG-IU TABS 1 po daily CALCIUM CITRATE-VITAMIN D 68235371057 Active Mili Malka Gautam MULTIVITAMINS TABS 1 po daily MULTIPLE VITAMIN 37247884997 Active Miligt Gautam KLOR-CON M10 10 MEQ TBCR 1 po daily POTASSIUM CHLORIDE CK CR 40135205505 Active Nicola Macias NADOLOL 40 MG TABS 1 po daily NADOLOL 95119741223 Active Nicola Macias Immunizations Vaccine Administration Date [...] None Encounters Code Encounter Date Provider Facility CPT-22989 Ofc Vst, Est Level III 13:26:46 CDT Mili Gautam DO, FACP CPT-23331 Ofc Vst, Est Level III 17:39:31 DEMOGRAPHIC ANALYST Mili Gautam DO, FACP CPT-54193 Ofc Vst, Est Level III 15:09:46 DEMOGRAPHIC ANALYST Mili Gautam [facility] CPT-97311 Ofc Vst, Est Level III 17:42:49 DEMOGRAPHIC ANALYST Mili Gautam DO, FACP CPT-49641 Ofc Vst, Est Level III 14:15:29 DEMOGRAPHIC ANALYST Mili Gautam, DO, FACP CPT-63892 Ofc Vst, Est Level III 12:57:33 DEMOGRAPHIC ANALYST Mili Gautam, DO, FACP CPT-87360 Ofc Vst, Est Level IV 13:36:51 DEMOGRAPHIC ANALYST Mili Gautam, DO, FACP CPT-51704 Ofc Vst, Est Level III 13:13:04 DEMOGRAPHIC ANALYST Mili Gautam, DO, FACP CPT-98256 Ofc Vst, Est Level III 14:17:29 CDT Mili Gautam, DO, FACP CPT-63332 Ofc Vst, Est Level III 16:26:29 CDT Mili Gautam, DO, FACP CPT-67534 Ofc Vst, Est Level III 15:16:40 CDT Mili Metz Gautam, DO, FACP CPT-15888 Ofc Vst, Est Level III 12:01:38 CDT Mili Metz Gautam, DO, FACP CPT-14890 Ofc Vst, Est Level III 19:36:46 DEMOGRAPHIC ANALYST Mili Metz Gautam, DO, FACP CPT-04062 Ofc Vst, Est Level III 15:45:49 DEMOGRAPHIC ANALYST Mili Metz Gautam, DO, FACP CPT-90663 Ofc Vst, Est Level IV 14:05:12 CDT Mili Metz Lotus, DO, FACP CPT-80132 Ofc Vst, Est Level IV 11:38:35 DEMOGRAPHIC ANALYST Mili Metz Lotus, DO, FACP CPT-85694 Ofc Vst, Est Level IV 12:15:39 DEMOGRAPHIC ANALYST Mili Metz Lotus, DO, FACP CPT-77946 Ofc Vst, Est Level IV 10:49:39 CDT Mili Metz Lotus, DO, FACP CPT-99076 Ofc Vst, Est Level III 11:12:31 CDT Mili Metz Lotus, DO, FACP CPT-21684 Ofc Vst, Est Level IV 11:24:11 CDT Miligt Metz Lotus, DO, FACP CPT-46694 Ofc Vst, Est Level IV 10:56:53 DEMOGRAPHIC ANALYST Mili Metz Lotus, DO, FACP CPT-03058 Ofc Vst, Est Level IV 10:23:39 CDT Mili Metz Lotus, DO, FACP CPT-61782 Ofc Vst, Est Level IV 13:45:21 CDT Miligt Metz Lotus, DO, FACP CPT-59605 Ofc Vst, Est Level III 14:30:43 CDT Miligt [facility] CPT-58848 Ofc Vst, Est Level IV 10:27:11 DEMOGRAPHIC ANALYST Miligt Metz Lotus, DO, FACP CPT-44864 Ofc Vst, Est Level IV 10:00:49 CDT Mili Malka Metz Lotus, DO, FACP CPT-71164 Ofc Vst, Est Level III 16:29:04 CDT Miligt Metz Lotus, DO, FACP CPT-82441 Ofc Vst, Est Level IV 10:17:09 CDT Miligt Metz Lotus, DO, FACP CPT-90091 Ofc Vst, Est Level IV 09:20:45 DEMOGRAPHIC ANALYST Miligt Metz Lotus, DO, FACP CPT-72478 Ofc Vst, Est Level IV 10:24:24 CDT Miligt Metz Lotus, DO, FACP CPT-01824 Ofc Vst, Est Level III 13:19:51 CDT Miligt Metz Lotus, DO, FACP CPT-96334 Ofc Vst, Est Level IV 16:20:29 CDT Miligt Metz Lotus, DO, FACP CPT-81904 Ofc Vst, Est Level IV 10:16:23 CDT Miligt Metz Lotus, DO, FACP CPT-69001 Ofc Vst, Est Level IV 10:30:07 DEMOGRAPHIC ANALYST Mili Metz Lotus, DO, FACP CPT-60216 Ofc Vst, Est Level III 10:40:49 CDT Mili Malka Metz Lotus, DO, FACP CPT-81106 Ofc Vst, Est Level III 10:16:25 CDT Miligt Gautam, DO, FACP CPT-42900 Ofc Vst, Est Level III 10:25:50 CDT Mili Malka Gautam, DO, FACP CPT-54771 Ofc Vst, Est Level IV 10:39:21 CDT Miligt Gautam [facility] CPT-74578 Ofc Vst, Est Level IV 16:03:05 CDT Mili Malka Gautam [facility] CPT-02958 Ofc Vst, Est Level III 14:54:11 DEMOGRAPHIC ANALYST Mili Gautam [facility] CPT-33070 Ofc Vst, Est Level III 15:34:35 CDT Miligt Gautam [facility] CPT-30532 Ofc Vst, Est Level IV 10:31:02 CDT Mili Malka Gautam [facility] [place] CPT-28816 Ofc Vst, Est Level III 11:13:15 CDT Miligt Gautam [facility] CPT-54444 Ofc Vst, Est Level IV 10:12:47 CDT Miligt Gautam [facility] [place] CPT-49155 Ofc Vst, Est Level III 15:47:34 DEMOGRAPHIC ANALYST Mili Gautam [facility] [place] CPT-19151 Ofc Vst, Est Level IV 11:06:54 DEMOGRAPHIC ANALYST Mili Gautam [facility] [place] CPT-98522 Ofc Vst, Est Level IV 10:42:38 CDT Miligt Gautam [facility] [place] CPT-63573 Ofc Vst, Est Level IV 11:22:18 CDT Miligt Gautam [facility] [place] CPT-04408 Ofc Vst, Est Level IV 15:48:16 CDT Mili Malka Gautam [facility] [place] CPT-85653 Ofc Vst, Est Level IV 13:08:33 CDT Mili Gautam [facility] [place] CPT-83089 Ofc Vst, Est Level III 13:21:55 DEMOGRAPHIC ANALYST Mili Gautam [facility] [place] CPT-13550 Ofc Vst, Est Level IV 13:13:53 DEMOGRAPHIC ANALYST Mili Gautam [facility] [place] CPT-35205 Ofc Vst, Est Level III 17:49:28 DEMOGRAPHIC ANALYST Mili Gautam [facility] [place] CPT-97720 Ofc Vst, Est Level IV 17:29:41 DEMOGRAPHIC ANALYST Mili Gautam [facility] [place] CPT-10948 Ofc Vst, Est Level IV 13:09:45 DEMOGRAPHIC ANALYST Mili Gautam [facility] [place] CPT-96842 Ofc Vst, Est Level IV 19:10:11 CDT Mili Gautam [facility] [place] CPT-11202 Ofc Vst, New Level IV 18:05:12 CDT Mili Gautam [facility] [place] Procedures Code Procedure Name Date Entry Date Standard Description CPT-G0439 Medicare Annual Wellness Visit 14:05:26 CDT CPT-G8446 E-Prescribing not done due to controlled substance 14:15 :29 DEMOGRAPHIC ANALYST CPT-G8443 E-Prescribing Medication Sent 12:57:33 DEMOGRAPHIC ANALYST CPT-G8445 E-Prescribing Not sent due to no medication given 13:36: 51 DEMOGRAPHIC ANALYST CPT-G8443 E-Prescribing Medication Sent 13:13:04 DEMOGRAPHIC ANALYST CPT-G8443 E-Prescribing Medication Sent 14:17:29 CDT CPT-G8443 E-Prescribing Medication Sent 16:26:29 CDT CPT-G8445 E-Prescribing Not sent due to no medication given 15:16: 40 CDT CPT-G8445 E-Prescribing Not sent due to no medication given 12:01: 38 CDT CPT-G8445 E-Prescribing Not sent due to no medication given 19:36: 46 DEMOGRAPHIC ANALYST CPT-G8443 E-Prescribing Medication Sent 15:45:49 DEMOGRAPHIC ANALYST CPT-G8443 E-Prescribing Medication Sent 15:32:38 CDT CPT-G0438 Medicare Annual Wellness Visit Initial 15:32:38 CDT CPT-G8446 E-Prescribing not done due to controlled substance 16:29 :04 CDT CPT-G8443 E-Prescribing Medication Sent 10:17:09 CDT CPT-96526 Injection, Pneumovax 10:24:24 CDT CPT-06587 Excision of Benign Lesion 2.1-3.0 cm 10:32:03 CDT 09/22 CPT-67556 Excision of Malignant lesion 2.1-3.0 cm 16:12:48 CDT
--- OUTSIDE RECORDS SUMMARY | 2017-09-22 08:56 | XMS REPORT | Clinical Summary ---
Author Author User, MARA Organization [facility] Address Unknown Phone Allergies, Adverse Reactions, [...] TABS 1 PO DAILY PRN SWELLING FUROSEMIDE 87244497122 Active Alexus Patel DIFLUCAN 100 MG TAB 1 PO daily for 3 days FLUCONAZOLE 50161356058 No Longer Active Alexus Patel PROAIR HFA 108 (90 BASE) MCG/ACT AERS 2 puff Q4 hrs prn wheezing ALBUTEROL SULFATE 98489351812 No Longer Active Mili Gautam SINGULAIR 10 MG TABS 1 PO QHS MONTELUKAST SODIUM 85488745630 No Longer Active Mili Gautam ZOSTAVAX 24204 UNT/0.65ML SOLR 1 injection once to prevent Shingles ZOSTER VACCINE LIVE 06812771343 No Longer Active Mili Gautam MOBIC 15 MG TABS 1 PO daily MELOXICAM 42985585280 Active Alexus Patel BACTRIM DS 800-160 MG TAB 1 PO BID TRIMETHOPRIM- SULFAMETHOXAZOLE 75457099995 No Longer Active Mili Gautam AUGMENTIN 500-125 MG TAB 1 PO BID AMOXICILLIN-POT CLAVULANATE 37467391456 No Longer Active Mili Gautam TERAZOL 7 0.4 % CREA 1 applicator full per vagina QHS for 7 days TERCONAZOLE VAGINAL 37566062367 No Longer Active Mili Gautam ANUSOL-HC 2.5 % CREAM apply to affected area TID prn HYDROCORTISONE (RECTAL) 83733257712 Active Mili Gautam AUGMENTIN 500-125 MG TAB 1 PO BID AMOXICILLIN-POT CLAVULANATE 16142326628 No Longer Active Alexus Patel PYRIDIUM 200 MG TAB 1 PO TID prn urinary urgency PHENAZOPYRIDINE HCL 22863006559 No Longer Active Alexus Patel CIPRO 250 MG TABS 1 PO BID CIPROFLOXACIN HCL 13834316778 No Longer Active Alexus Patel ANUSOL-HC 25 MG SUPPOSITORY 1 TX TID prn HYDROCORTISONE NATALIE ( RECTAL) 13361590232 No Longer Active Mili Gautam ANUSOL-HC 2.5 % CREAM as directed HYDROCORTISONE (RECTAL) 17452423884 No Longer Active Miligt Gautam ADVAIR DISKUS 250-50 MCG/DOSE MISC 1 Puff BID FLUTICASONE-SALMETEROL 58408543052 No Longer Active Mili Malka Gautam LASIX 40 MG TABS 1 PO daily prn for swelling FUROSEMIDE 86397779205 No Longer Active Mili Malka Gautam CEFDINIR 300 MG CAPS 1 PO BID CEFDINIR 14178915900 No Longer Active Miligt WALDROP'S NASAL SPRAY (DEXAMETHASONE, GENTAMICIN, SALINE) 2 puffs each nostril TID for [address] WALDROP'Lashay NASAL SPRAY ( DEXAMETHASONE, GENTAMICIN, SALINE) No Longer Active Miligt Gautam PREMARIN 0.625 MG/GM CREA apply 2 inch ribbon outside the urethra once night a week ESTROGENS, CONJUGATED VAGINAL 77581238851 No Longer Active Miligt Gautam BACTROBAN 2 % CREAM Apply to affected area TID. MUPIROCIN CALCIUM 60110003900 No Longer Active Miligt Gautam NYSTATIN 285179 UNIT/GM CREA apply to affected areas TID for 7 days NYSTATIN 12607725928 No Longer Active Miligt Gautam FLAGYL 500 MG TABS 1 PO TID METRONIDAZOLE 38667737736 No Longer Active Miligt Gautam LEVAQUIN 500 MG TAB 1 PO QD LEVOFLOXACIN 86532052694 No Longer Active Mili Malka Gautam FLAGYL 500 MG TABS 1 PO TID METRONIDAZOLE 31771588652 No Longer Active Mili Malka Gautam LEVAQUIN 500 MG TAB 1 PO QD LEVOFLOXACIN 42373075333 No Longer Active Mili Malka Gautam LAMISIL 250 MG TABS 1 PO daily TERBINAFINE HCL 97557109514 No Longer Active Mili Malka Gautam PYRIDIUM 200 MG TAB 1 PO TID prn urinary urgency PHENAZOPYRIDINE HCL 53000513013 No Longer Active Miligt Gautam FISH OIL 1000 MG CAPS 2 PO QD OMEGA-3 FATTY ACIDS 17277751473 Active Mili Gautam ESTRACE 1 MG TABS 1 PO daily ESTRADIOL 43320998507 Active Nicola Macias CEPHALEXIN 500 MG CAPS 1 po TID x 5 days CEPHALEXIN 55394928555 No Longer Active Mili Malka Gautam PYRIDIUM 200 MG TAB 1 PO TID prn urinary urgency PHENAZOPYRIDINE HCL 60669437099 No Longer Active Dorina Armond MIRALAX POWD 1 scoop in 1/2 cup water every 3 hrs prn constipation. POLYETHYLENE GLYCOL 3350 99425703549 No Longer Active Miligt Gautam PYRIDIUM 200 MG TABS 1 po TID x 3 days PHENAZOPYRIDINE HCL 92101143325 No Longer Active Alexus Patel AUGMENTIN 500-125 MG TAB 1 PO BID x 7 days AMOXICILLIN-POT CLAVULANATE 88166358964 No Longer Active Mili Gautam SYNTHROID 0.05 MG TAB 1 PO daily on empty stomach LEVOTHYROXINE SODIUM 41629490976 Active Alexus Patel ROBITUSSIN A-C 10-100 MG/5ML SYRUP 1 teaspoon PO Q 4-6 hr prn ROBITUSSIN A-C 10-100 MG/5ML SYRUP No Longer Active Mili WALDROP'S NASAL SPRAY (DEXAMETHASONE, GENTAMICIN, SALINE) 2 puffs each nostril TID for [address] PANDEY NASAL SPRAY ( DEXAMETHASONE, GENTAMICIN, SALINE) No Longer Active Mili Gautam CIPRO 500 MG TAB 1 PO BID for 7 days CIPROFLOXACIN HCL 10004426981 No Longer Active Mili Gautam TABS 1 PO BID prn for nervous stomach PHENOBARBITAL-BELLADONNA ALK 98013224551 No Longer Active Mili Gautam AUGMENTIN 875-125 MG TAB 1 PO BID AMOXICILLIN-POT CLAVULANATE 62068149954 No Longer Active Miligt Gautam TESSALON 200 MG CAPS 1 PO TID prn cough BENZONATATE 31627420916 No Longer Active Mili Gautam ALEVE 220 MG TABS 1 PO BID NAPROXEN SODIUM 70510431073 No Longer Active Mili WALDROP'Lashay NASAL SPRAY (DEXAMETHASONE, GENTAMICIN, SALINE) 2 puffs each nostril TID for [address] WALDROP'Lashay NASAL SPRAY ( DEXAMETHASONE, GENTAMICIN, SALINE) No Longer Active Mili Gautam CIPRO 500 MG TABS 1 PO BID CIPROFLOXACIN HCL 95544882034 No Longer Active Mili Gautam PYRIDIUM 200 MG TAB 1 PO TID prn urinary urgency PHENAZOPYRIDINE HCL 06583904508 No Longer Active Chacorta Wylie AUGMENTIN 500-125 MG TAB 1 PO BID AMOXICILLIN-POT CLAVULANATE 92007251556 No Longer Active Chacorta Wylie IBUPROFEN 400 MG TABS 1 po TID IBUPROFEN 36361495384 No Longer Active Mili Gautam VITAMIN D 1000 UNIT TABS 1 PO Daily CHOLECALCIFEROL 43043833473 Active Miligt Gautam PYRIDIUM 200 MG TABS 1 po TID x 3 days PHENAZOPYRIDINE HCL 43871576694 No Longer Active Alexus Patel MACROBID 100 MG CAPS 1 po BID x 7 days NITROFURANTOIN MONOHYD MACRO 29351458321 No Longer Active Alexus Patel CRANBERRY 300 MG TABS 1 PO daily CRANBERRY 52077013406 No Longer Active Mili Malka Gautam BACTROBAN 2 % OINT Apply QID prn MUPIROCIN 76487352591 No Longer Active Mili Malka Gautam CEPHALEXIN 500 MG TABS 1 po QID x 10 days CEPHALEXIN 30292484577 No Longer Active Mili Malka Gautam NAPROXEN 500 MG TABS ! PO Q6hrs prn NAPROXEN 46034128406 No Longer Active Mili Malka Gautam VITAMIN B-12 1000 MCG TABS 1 po daily CYANOCOBALAMIN 31722453411 No Longer Active Mili Malka Gautam GINKOBA 40 MG TABS 1 PO daily GINKGO BILOBA 44896662164 No Longer Active Mili Malka Gautam PROMETHAZINE HCL 25 MG TABS 1 PO Q6hrs prn nausea PROMETHAZINE HCL 21477627248 No Longer Active Mili Malka Gautam PYRIDIUM 200 MG TAB 1 PO TID for 3 days PHENAZOPYRIDINE HCL 08329350807 No Longer Active Mili Malka Gautam PRAVACHOL 20 MG TABS 1 po daily PRAVASTATIN SODIUM 14486387883 Active Nicola Macias PYRIDIUM 200 MG TAB 1 PO TID PHENAZOPYRIDINE HCL 26037545765 No Longer Active Mili Malka Gautam AUGMENTIN 500-125 MG TAB 1 PO BID AMOXICILLIN-POT CLAVULANATE 90578298216 No Longer Active Mili Malka Gautam AUGMENTIN 500-125 MG TAB 1 PO BID AMOXICILLIN-POT CLAVULANATE 01247919490 No Longer Active Mili Malka Gautam BACTRIM DS 800-160 MG TAB 1 po BID for 7 days TRIMETHOPRIM-SULFAMETHOXAZOLE 67029795738 No Longer Active Zahraa PANDEY NASAL SPRAY (DEXAMETHASONE, GENTAMICIN, SALINE) 2 puffs each nostril TID DR. PANDEY NASAL SPRAY (DEXAMETHASONE, GENTAMICIN, SALINE) No Longer Active Mili Gautam AUGMENTIN 500-125 MG TAB 1 PO BID AMOXICILLIN-POT CLAVULANATE 56067746582 No Longer Active Mili Gautam MUCINEX 600 MG TB12 1 po BID GUAIFENESIN 70792557974 No Longer Active Mili Gautam MUCINEX 600 MG TB12 1 PO BID for 7 days GUAIFENESIN 82977628843 No Longer Active Mili Gautam AUGMENTIN 875-125 MG TAB 1 PO BID AMOXICILLIN-POT CLAVULANATE 68224359596 No Longer Active Mili PANDEY NASAL SPRAY (DEXAMETHASONE, GENTAMICIN, SALINE) 2 puffs each nostril TID for [address] PANDEY NASAL SPRAY ( DEXAMETHASONE, GENTAMICIN, SALINE) No Longer Active Alexus Patel DOXYCYCLINE HYCLATE 100 MG CAP 1 po BID for 7 days DOXYCYCLINE HYCLATE 24209984941 No Longer Active Alexus Patel DECADRON/GARAMYCIN NASAL SPRAY 1 spray BID prn from Dr Waldrop 2005 DECADRON/GARAMYCIN NASAL SPRAY No Longer Active Mili PANDEY NASAL SPRAY (DEXAMETHASONE, GENTAMICIN, SALINE) 2 puffs each nostril TID for [address] PANDEY NASAL SPRAY ( DEXAMETHASONE, GENTAMICIN, SALINE) No Longer Active Mili Gautam AUGMENTIN 875-125 MG TAB 1 PO BID for 7 days AMOXICILLIN-POT CLAVULANATE 52331033001 No Longer Active Mili Gautam GARLIC 500 MG CAPS 1 PO daily GARLIC 31433896001 Active Mili Malka Gautam VALIUM 2 MG TAB 1 PO Q6hrs prn DIAZEPAM 20772566973 No Longer Active Mili Malka Gautam KENALOG 0.1 % CREA apply to affected areas on skin BID for 7 days TRIAMCINOLONE ACETONIDE 99240653411 No Longer Active Mili Malka Gautam DOXYCYCLINE HYCLATE 100 MG CAPS 1 PO BID DOXYCYCLINE HYCLATE 13844033756 No Longer Active Mili Malka Gautam HYDROCHLOROTHIAZIDE 12.5 MG CAPS 1 PO QD HYDROCHLOROTHIAZIDE 89078830481 Active Nicola Macias DIOVAN 320 MG TABS 1 PO daily for BP VALSARTAN 54830142999 Active Nicola Macias K-DUR 20 MEQ TAB CR 1 PO QOD POTASSIUM CHLORIDE 00957649059 No Longer Active Mili Malka Gautam ZYRTEC 10 MG TABS 1 po daily prn CETIRIZINE HCL 55646038011 Active Mili Malka Gautam XANAX 0.25 MG TABS 1 po q 6 hrs. prn ALPRAZOLAM 73047641060 Active Mili Malka Gautam LASIX 40 MG TAB 1 PO QOD FUROSEMIDE 60165475928 No Longer Active Mili Malka Gautam NORVASC 10 MG TAB 1 PO QD AMLODIPINE BESYLATE 66877814276 No Longer Active Mili Malka Gautam DIOVAN HCT 160-12.5 MG TABS 2 PO QD VALSARTAN- HYDROCHLOROTHIAZIDE 47763421048 No Longer Active Crystal LaGalle PAXIL CR 12.5 MG TB24 1 PO QD PAROXETINE HCL 55056600928 No Longer Active Mili Malka Gautam CORICIDIN HBP FLU 15-500-2 MG TABS 1 PO Q12hrs DM- APAP-CPM 02937039097 No Longer Active Mili Malka Gautam XANAX 0.25 MG TABS 1 every 4-6hrs scheduled ALPRAZOLAM 33639025827 No Longer Active Mili Malka Gautam PREMARIN 1.25 MG TABS 1 PO QD ESTROGENS CONJUGATED 86651633070 No Longer Active Alexus Patel CENESTIN 1.25 MG TABS 1 po daily ESTROGENS CONJ SYNTHETIC A 27981937287 No Longer Active Mili Malka Gautam BUSPAR 5 MG TABS 1/2 - 1 tab PO QD prn BUSPIRONE HCL 83658195287 No Longer Active Mili Malka Gautam BACTRIM DS 800-160 MG TAB 1 PO BID TRIMETHOPRIM- SULFAMETHOXAZOLE 17574710292 No Longer Active Miligt Gautam LIPITOR 10 MG TABS 1/2 po daily ATORVASTATIN CALCIUM 10236219526 No Longer Active Chrissy Piva ASPIRIN 81 MG TABS 1 PO QD ASPIRIN 92304877805 Active Miligt Gautam CITRACAL + D 250-62.5 MG-IU TABS 1 po daily CALCIUM CITRATE-VITAMIN D 82081267570 Active Mili Malka Gautam MULTIVITAMINS TABS 1 po daily MULTIPLE VITAMIN 94298570881 Active Miligt Gautam KLOR-CON M10 10 MEQ TBCR 1 po daily POTASSIUM CHLORIDE CK CR 81336740165 Active Nicola Macias NADOLOL 40 MG TABS 1 po daily NADOLOL 64944760003 Active Nicola Macias Immunizations Vaccine Administration Date [...] None Encounters Code Encounter Date Provider Facility CPT-22680 Ofc Vst, Est Level III 13:26:46 CDT Mili Gautam DO, FACP CPT-43803 Ofc Vst, Est Level III 17:39:31 [employer] Mili Gautam DO, FACP CPT-55079 Ofc Vst, Est Level III 15:09:46 [employer] Mili Gautam [facility] CPT-03399 Ofc Vst, Est Level III 17:42:49 [employer] Mili Gautam DO, FACP CPT-50353 Ofc Vst, Est Level III 14:15:29 [employer] Mili Gautam, DO, FACP CPT-17895 Ofc Vst, Est Level III 12:57:33 [employer] Mili Gautam, DO, FACP CPT-81936 Ofc Vst, Est Level IV 13:36:51 [employer] Mili Gautam, DO, FACP CPT-31402 Ofc Vst, Est Level III 13:13:04 [employer] Mili Gautam, DO, FACP CPT-91068 Ofc Vst, Est Level III 14:17:29 CDT Mili Gautam, DO, FACP CPT-95705 Ofc Vst, Est Level III 16:26:29 CDT Mili Gautam, DO, FACP CPT-81073 Ofc Vst, Est Level III 15:16:40 CDT Mili Metz Gautam, DO, FACP CPT-72196 Ofc Vst, Est Level III 12:01:38 CDT Mili Metz Gautam, DO, FACP CPT-93920 Ofc Vst, Est Level III 19:36:46 [employer] Mili Metz Gautam, DO, FACP CPT-91375 Ofc Vst, Est Level III 15:45:49 [employer] Mili Metz Gautam, DO, FACP CPT-35545 Ofc Vst, Est Level IV 14:05:12 CDT Mili Metz Lotus, DO, FACP CPT-87516 Ofc Vst, Est Level IV 11:38:35 [employer] Mili Metz Lotus, DO, FACP CPT-86258 Ofc Vst, Est Level IV 12:15:39 [employer] Mili Metz Lotus, DO, FACP CPT-64013 Ofc Vst, Est Level IV 10:49:39 CDT Mili Metz Lotus, DO, FACP CPT-85434 Ofc Vst, Est Level III 11:12:31 CDT Mili Metz Lotus, DO, FACP CPT-25843 Ofc Vst, Est Level IV 11:24:11 CDT Miligt Metz Lotus, DO, FACP CPT-54326 Ofc Vst, Est Level IV 10:56:53 [employer] Mili Metz Lotus, DO, FACP CPT-92818 Ofc Vst, Est Level IV 10:23:39 CDT Mili Metz Lotus, DO, FACP CPT-37520 Ofc Vst, Est Level IV 13:45:21 CDT Miligt Metz Lotus, DO, FACP CPT-10288 Ofc Vst, Est Level III 14:30:43 CDT Miligt [facility] CPT-40062 Ofc Vst, Est Level IV 10:27:11 [employer] Miligt Metz Lotus, DO, FACP CPT-39218 Ofc Vst, Est Level IV 10:00:49 CDT Mili Malka Metz Lotus, DO, FACP CPT-53819 Ofc Vst, Est Level III 16:29:04 CDT Miligt Metz Lotus, DO, FACP CPT-15090 Ofc Vst, Est Level IV 10:17:09 CDT Miligt Metz Lotus, DO, FACP CPT-31822 Ofc Vst, Est Level IV 09:20:45 [employer] Miligt Metz Lotus, DO, FACP CPT-95556 Ofc Vst, Est Level IV 10:24:24 CDT Miligt Metz Lotus, DO, FACP CPT-53683 Ofc Vst, Est Level III 13:19:51 CDT Miligt Metz Lotus, DO, FACP CPT-64411 Ofc Vst, Est Level IV 16:20:29 CDT Miligt Metz Lotus, DO, FACP CPT-11487 Ofc Vst, Est Level IV 10:16:23 CDT Miligt Metz Lotus, DO, FACP CPT-91863 Ofc Vst, Est Level IV 10:30:07 [employer] Mili Metz Lotus, DO, FACP CPT-49144 Ofc Vst, Est Level III 10:40:49 CDT Mili Malka Metz Lotus, DO, FACP CPT-98350 Ofc Vst, Est Level III 10:16:25 CDT Miligt Gautam, DO, FACP CPT-82003 Ofc Vst, Est Level III 10:25:50 CDT Mili Malka Gautam, DO, FACP CPT-59188 Ofc Vst, Est Level IV 10:39:21 CDT Miligt Gautam [facility] [place] CPT-06626 Ofc Vst, Est Level IV 16:03:05 CDT Mili Malka Gautam [facility] [place] CPT-81740 Ofc Vst, Est Level III 14:54:11 [employer] Mili Gautam [facility] [place] CPT-31878 Ofc Vst, Est Level III 15:34:35 CDT Miligt Gautam [facility] [place] CPT-27289 Ofc Vst, Est Level IV 10:31:02 CDT Mili Malka Gautam [facility][1[facility] [place] CPT-41809 Ofc Vst, Est Level III 11:13:15 CDT Miligt Gautam [facility] [place] CPT-51459 Ofc Vst, Est Level IV 10:12:47 CDT Miligt Gautam [facility] [place] CPT-33008 Ofc Vst, Est Level III 15:47:34 [employer] Mili Gautam [facility][1[facility] [place] CPT-22033 Ofc Vst, Est Level IV 11:06:54 [employer] Mili Gautam [facility] [place] CPT-98722 Ofc Vst, Est Level IV 10:42:38 CDT Miligt Gautam [facility] [place] CPT-58783 Ofc Vst, Est Level IV 11:22:18 CDT Miligt Gautam [facility] [place] CPT-86403 Ofc Vst, Est Level IV 15:48:16 CDT Mili Malka Gautam [facility] [place] CPT-28178 Ofc Vst, Est Level IV 13:08:33 CDT Mili Gautam [facility] [place] CPT-73026 Ofc Vst, Est Level III 13:21:55 [employer] Mili Gautam [facility][1[facility] [place] CPT-15498 Ofc Vst, Est Level IV 13:13:53 [employer] Mili Gautam [facility][1] [facility] [place] CPT-12988 Ofc Vst, Est Level III 17:49:28 [employer] Mili Gautam [facility][1] [facility] [place] CPT-34356 Ofc Vst, Est Level IV 17:29:41 [employer] Mili Gautam [facility] [place] CPT-27329 Ofc Vst, Est Level IV 13:09:45 [employer] Mili Gautam [facility][1] [facility] [place] CPT-02111 Ofc Vst, Est Level IV 19:10:11 CDT Mili Gautam [facility][1] [facility] [place] CPT-75503 Ofc Vst, New Level IV 18:05:12 CDT Mili Gautam [facility] [place] Procedures Code Procedure Name Date Entry Date Standard Description CPT-G0439 Medicare Annual Wellness Visit 14:05:26 CDT CPT-G8446 E-Prescribing not done due to controlled substance 14:15 :29 [employer] CPT-G8443 E-Prescribing Medication Sent 12:57:33 [employer] CPT-G8445 E-Prescribing Not sent due to no medication given 13:36: 51 [employer] CPT-G8443 E-Prescribing Medication Sent 13:13:04 [employer] CPT-G8443 E-Prescribing Medication Sent 14:17:29 CDT CPT-G8443 E-Prescribing Medication Sent 16:26:29 CDT CPT-G8445 E-Prescribing Not sent due to no medication given 15:16: 40 CDT CPT-G8445 E-Prescribing Not sent due to no medication given 12:01: 38 CDT CPT-G8445 E-Prescribing Not sent due to no medication given 19:36: 46 [employer] CPT-G8443 E-Prescribing Medication Sent 15:45:49 [employer] CPT-G8443 E-Prescribing Medication Sent 15:32:38 CDT CPT-G0438 Medicare Annual Wellness Visit Initial 15:32:38 CDT CPT-G8446 E-Prescribing not done due to controlled substance 16:29 :04 CDT CPT-G8443 E-Prescribing Medication Sent 10:17:09 CDT CPT-39875 Injection, Pneumovax 10:24:24 CDT CPT-35541 Excision of Benign Lesion 2.1-3.0 cm 10:32:03 CDT 09/22 CPT-15119 Excision of Malignant lesion 2.1-3.0 cm 16:12:48 CDT
--- OUTSIDE RECORDS SUMMARY | 2017-09-22 08:57 | XMS REPORT | Clinical Summary ---
Author Author User, MARA Organization [facility] Address Unknown Phone Allergies, Adverse Reactions, [...] initiating or maintaining sleep EDEMA 782.3 Active Miil Gautam Edema URINARY FREQUENCY 788.41 Resolved Mili [...] TABS 1 PO DAILY PRN SWELLING FUROSEMIDE 85962075655 Active Alexus Patel DIFLUCAN 100 MG TAB 1 PO daily for 3 days FLUCONAZOLE 38920831310 No Longer Active Alexus Paetl PROAIR HFA 108 (90 BASE) MCG/ACT AERS 2 puff Q4 hrs prn wheezing ALBUTEROL SULFATE 67547863354 No Longer Active Mili Gautam SINGULAIR 10 MG TABS 1 PO QHS MONTELUKAST SODIUM 02957646381 No Longer Active Mili Gautam ZOSTAVAX 91350 UNT/0.65ML SOLR 1 injection once to prevent Shingles ZOSTER VACCINE LIVE 13955908026 No Longer Active Mili Gautam MOBIC 15 MG TABS 1 PO daily MELOXICAM 31946145762 Active Alexus Patel BACTRIM DS 800-160 MG TAB 1 PO BID TRIMETHOPRIM- SULFAMETHOXAZOLE 29501526387 No Longer Active Mili Gautam AUGMENTIN 500-125 MG TAB 1 PO BID AMOXICILLIN-POT CLAVULANATE 47080839164 No Longer Active Mili Gautam TERAZOL 7 0.4 % CREA 1 applicator full per vagina QHS for 7 days TERCONAZOLE VAGINAL 90335598064 No Longer Active Mili Gautam ANUSOL-HC 2.5 % CREAM apply to affected area TID prn HYDROCORTISONE (RECTAL) 92229597014 Active Mili Gautam AUGMENTIN 500-125 MG TAB 1 PO BID AMOXICILLIN-POT CLAVULANATE 69039045566 No Longer Active Alexus Patel PYRIDIUM 200 MG TAB 1 PO TID prn urinary urgency PHENAZOPYRIDINE HCL 29496287243 No Longer Active Alexus Patel CIPRO 250 MG TABS 1 PO BID CIPROFLOXACIN HCL 78014088298 No Longer Active Alexus Patel ANUSOL-HC 25 MG SUPPOSITORY 1 WA TID prn HYDROCORTISONE NATALIE ( RECTAL) 04764592506 No Longer Active Mili Gautam ANUSOL-HC 2.5 % CREAM as directed HYDROCORTISONE (RECTAL) 27963143909 No Longer Active Miligt Gautam ADVAIR DISKUS 250-50 MCG/DOSE MISC 1 Puff BID FLUTICASONE-SALMETEROL 13537520497 No Longer Active Mili Malka Gautam LASIX 40 MG TABS 1 PO daily prn for swelling FUROSEMIDE 50914605766 No Longer Active Mili Malka Gautam CEFDINIR 300 MG CAPS 1 PO BID CEFDINIR 72540217001 No Longer Active Miligt WALDROP'S NASAL SPRAY (DEXAMETHASONE, GENTAMICIN, SALINE) 2 puffs each nostril TID for [address] WALDROP'Lashay NASAL SPRAY ( DEXAMETHASONE, GENTAMICIN, SALINE) No Longer Active Miligt Gautam PREMARIN 0.625 MG/GM CREA apply 2 inch ribbon outside the urethra once night a week ESTROGENS, CONJUGATED VAGINAL 74272581937 No Longer Active Miligt Gautam BACTROBAN 2 % CREAM Apply to affected area TID. MUPIROCIN CALCIUM 19219633683 No Longer Active Miligt Gautam NYSTATIN 471764 UNIT/GM CREA apply to affected areas TID for 7 days NYSTATIN 32837099923 No Longer Active Miligt Gautam FLAGYL 500 MG TABS 1 PO TID METRONIDAZOLE 28179112220 No Longer Active Miligt Gautam LEVAQUIN 500 MG TAB 1 PO QD LEVOFLOXACIN 49259275284 No Longer Active Mili Malka Gautam FLAGYL 500 MG TABS 1 PO TID METRONIDAZOLE 23947164215 No Longer Active Mili Malka Gautam LEVAQUIN 500 MG TAB 1 PO QD LEVOFLOXACIN 41551758334 No Longer Active Mili Malka Gautam LAMISIL 250 MG TABS 1 PO daily TERBINAFINE HCL 17950893951 No Longer Active Mili Malka Gautam PYRIDIUM 200 MG TAB 1 PO TID prn urinary urgency PHENAZOPYRIDINE HCL 73483299835 No Longer Active Miligt Gautam FISH OIL 1000 MG CAPS 2 PO QD OMEGA-3 FATTY ACIDS 58773872129 Active Mili Gautam ESTRACE 1 MG TABS 1 PO daily ESTRADIOL 30743848005 Active Nicola Macias CEPHALEXIN 500 MG CAPS 1 po TID x 5 days CEPHALEXIN 03820415323 No Longer Active Mili Malka Gautam PYRIDIUM 200 MG TAB 1 PO TID prn urinary urgency PHENAZOPYRIDINE HCL 75481095124 No Longer Active Dorina Armond MIRALAX POWD 1 scoop in 1/2 cup water every 3 hrs prn constipation. POLYETHYLENE GLYCOL 3350 22709770852 No Longer Active Miligt Gautam PYRIDIUM 200 MG TABS 1 po TID x 3 days PHENAZOPYRIDINE HCL 36369889030 No Longer Active Alexus Patel AUGMENTIN 500-125 MG TAB 1 PO BID x 7 days AMOXICILLIN-POT CLAVULANATE 05357417968 No Longer Active Mili Gautam SYNTHROID 0.05 MG TAB 1 PO daily on empty stomach LEVOTHYROXINE SODIUM 25154375548 Active Alexus Patel ROBITUSSIN A-C 10-100 MG/5ML SYRUP 1 teaspoon PO Q 4-6 hr prn ROBITUSSIN A-C 10-100 MG/5ML SYRUP No Longer Active Mili WALDROP'S NASAL SPRAY (DEXAMETHASONE, GENTAMICIN, SALINE) 2 puffs each nostril TID for [address] PANDEY NASAL SPRAY ( DEXAMETHASONE, GENTAMICIN, SALINE) No Longer Active Mili Gautam CIPRO 500 MG TAB 1 PO BID for 7 days CIPROFLOXACIN HCL 83946785767 No Longer Active Mili Gautam TABS 1 PO BID prn for nervous stomach PHENOBARBITAL-BELLADONNA ALK 47226614237 No Longer Active Mili Gautam AUGMENTIN 875-125 MG TAB 1 PO BID AMOXICILLIN-POT CLAVULANATE 67598114937 No Longer Active Miligt Gautam TESSALON 200 MG CAPS 1 PO TID prn cough BENZONATATE 00414919322 No Longer Active Mili Gautam ALEVE 220 MG TABS 1 PO BID NAPROXEN SODIUM 93312646435 No Longer Active Mili WALDROP'Lashay NASAL SPRAY (DEXAMETHASONE, GENTAMICIN, SALINE) 2 puffs each nostril TID for [address] WALDROP'Lashay NASAL SPRAY ( DEXAMETHASONE, GENTAMICIN, SALINE) No Longer Active Mili Gautam CIPRO 500 MG TABS 1 PO BID CIPROFLOXACIN HCL 70533869541 No Longer Active Mili Gautam PYRIDIUM 200 MG TAB 1 PO TID prn urinary urgency PHENAZOPYRIDINE HCL 96149522363 No Longer Active Chacorta Wylie AUGMENTIN 500-125 MG TAB 1 PO BID AMOXICILLIN-POT CLAVULANATE 42644133795 No Longer Active Chacorta Wylie IBUPROFEN 400 MG TABS 1 po TID IBUPROFEN 82287654917 No Longer Active Mili Gautam VITAMIN D 1000 UNIT TABS 1 PO Daily CHOLECALCIFEROL 63784338865 Active Miligt Gautam PYRIDIUM 200 MG TABS 1 po TID x 3 days PHENAZOPYRIDINE HCL 43174358707 No Longer Active Alexus Patel MACROBID 100 MG CAPS 1 po BID x 7 days NITROFURANTOIN MONOHYD MACRO 65451923961 No Longer Active Alexus Patel CRANBERRY 300 MG TABS 1 PO daily CRANBERRY 90341687421 No Longer Active Mili Malka Gautam BACTROBAN 2 % OINT Apply QID prn MUPIROCIN 80813378202 No Longer Active Mili Malka Gautam CEPHALEXIN 500 MG TABS 1 po QID x 10 days CEPHALEXIN 13376837522 No Longer Active Mili Malka Gautam NAPROXEN 500 MG TABS ! PO Q6hrs prn NAPROXEN 74165984785 No Longer Active Mili Malka Gautam VITAMIN B-12 1000 MCG TABS 1 po daily CYANOCOBALAMIN 07836780843 No Longer Active Mili Malka Gautam GINKOBA 40 MG TABS 1 PO daily GINKGO BILOBA 43754799789 No Longer Active Mili Malka Gautam PROMETHAZINE HCL 25 MG TABS 1 PO Q6hrs prn nausea PROMETHAZINE HCL 51972004624 No Longer Active Mili Malka Gautam PYRIDIUM 200 MG TAB 1 PO TID for 3 days PHENAZOPYRIDINE HCL 84759562978 No Longer Active Mili Malka Gautam PRAVACHOL 20 MG TABS 1 po daily PRAVASTATIN SODIUM 82253441547 Active Nicola Macias PYRIDIUM 200 MG TAB 1 PO TID PHENAZOPYRIDINE HCL 08357882856 No Longer Active Mili Malka Gautam AUGMENTIN 500-125 MG TAB 1 PO BID AMOXICILLIN-POT CLAVULANATE 65715244165 No Longer Active Mili Malka Gautam AUGMENTIN 500-125 MG TAB 1 PO BID AMOXICILLIN-POT CLAVULANATE 10951306345 No Longer Active Mili Malka Gautam BACTRIM DS 800-160 MG TAB 1 po BID for 7 days TRIMETHOPRIM-SULFAMETHOXAZOLE 04252494995 No Longer Active Zahraa PANDEY NASAL SPRAY (DEXAMETHASONE, GENTAMICIN, SALINE) 2 puffs each nostril TID DR. PANDEY NASAL SPRAY (DEXAMETHASONE, GENTAMICIN, SALINE) No Longer Active Mili Gautam AUGMENTIN 500-125 MG TAB 1 PO BID AMOXICILLIN-POT CLAVULANATE 79323315392 No Longer Active Mili Gautam MUCINEX 600 MG TB12 1 po BID GUAIFENESIN 46829944573 No Longer Active Mili Gautam MUCINEX 600 MG TB12 1 PO BID for 7 days GUAIFENESIN 72985793379 No Longer Active Mili Gautam AUGMENTIN 875-125 MG TAB 1 PO BID AMOXICILLIN-POT CLAVULANATE 92451598398 No Longer Active Mili PANDEY NASAL SPRAY (DEXAMETHASONE, GENTAMICIN, SALINE) 2 puffs each nostril TID for [address] PANDEY NASAL SPRAY ( DEXAMETHASONE, GENTAMICIN, SALINE) No Longer Active Alexus Patel DOXYCYCLINE HYCLATE 100 MG CAP 1 po BID for 7 days DOXYCYCLINE HYCLATE 30209834771 No Longer Active Alexus Patel DECADRON/GARAMYCIN NASAL SPRAY 1 spray BID prn from Dr Waldrop 2005 DECADRON/GARAMYCIN NASAL SPRAY No Longer Active Mili PANDEY NASAL SPRAY (DEXAMETHASONE, GENTAMICIN, SALINE) 2 puffs each nostril TID for [address] PANDEY NASAL SPRAY ( DEXAMETHASONE, GENTAMICIN, SALINE) No Longer Active Mili Gautam AUGMENTIN 875-125 MG TAB 1 PO BID for 7 days AMOXICILLIN-POT CLAVULANATE 89387033959 No Longer Active Mili Gautam GARLIC 500 MG CAPS 1 PO daily GARLIC 23406206809 Active Mili Malka Gautam VALIUM 2 MG TAB 1 PO Q6hrs prn DIAZEPAM 47437834946 No Longer Active Mili Malka Gautam KENALOG 0.1 % CREA apply to affected areas on skin BID for 7 days TRIAMCINOLONE ACETONIDE 30522501558 No Longer Active Mili Malka Gautam DOXYCYCLINE HYCLATE 100 MG CAPS 1 PO BID DOXYCYCLINE HYCLATE 80389654023 No Longer Active Mili Malka Gautam HYDROCHLOROTHIAZIDE 12.5 MG CAPS 1 PO QD HYDROCHLOROTHIAZIDE 87457437419 Active Nicola Macias DIOVAN 320 MG TABS 1 PO daily for BP VALSARTAN 07744834784 Active Nicola Macias K-DUR 20 MEQ TAB CR 1 PO QOD POTASSIUM CHLORIDE 82970262098 No Longer Active Mili Malka Gautam ZYRTEC 10 MG TABS 1 po daily prn CETIRIZINE HCL 02788530027 Active Mili Malka Gautam XANAX 0.25 MG TABS 1 po q 6 hrs. prn ALPRAZOLAM 67628319042 Active Mili Malka Gautam LASIX 40 MG TAB 1 PO QOD FUROSEMIDE 50178846290 No Longer Active Mili Malka Gautam NORVASC 10 MG TAB 1 PO QD AMLODIPINE BESYLATE 01349497791 No Longer Active Mili Malka Gautam DIOVAN HCT 160-12.5 MG TABS 2 PO QD VALSARTAN- HYDROCHLOROTHIAZIDE 60589829084 No Longer Active Crystal LaGalle PAXIL CR 12.5 MG TB24 1 PO QD PAROXETINE HCL 73570071417 No Longer Active Mili Malka Gautam CORICIDIN HBP FLU 15-500-2 MG TABS 1 PO Q12hrs DM- APAP-CPM 37678512530 No Longer Active Mili Malka Gautam XANAX 0.25 MG TABS 1 every 4-6hrs scheduled ALPRAZOLAM 25584768914 No Longer Active Mili Malka Gautam PREMARIN 1.25 MG TABS 1 PO QD ESTROGENS CONJUGATED 35141338652 No Longer Active Alexus Patel CENESTIN 1.25 MG TABS 1 po daily ESTROGENS CONJ SYNTHETIC A 99931968751 No Longer Active Mili Malka Gautam BUSPAR 5 MG TABS 1/2 - 1 tab PO QD prn BUSPIRONE HCL 15439290226 No Longer Active Mili Malka Gautam BACTRIM DS 800-160 MG TAB 1 PO BID TRIMETHOPRIM- SULFAMETHOXAZOLE 41856977097 No Longer Active Miligt Gautam LIPITOR 10 MG TABS 1/2 po daily ATORVASTATIN CALCIUM 96342217627 No Longer Active Chrissy Piva ASPIRIN 81 MG TABS 1 PO QD ASPIRIN 09181866085 Active Miligt Gautam CITRACAL + D 250-62.5 MG-IU TABS 1 po daily CALCIUM CITRATE-VITAMIN D 19905689857 Active Mili Malka Gautam MULTIVITAMINS TABS 1 po daily MULTIPLE VITAMIN 99600710110 Active Miligt Gautam KLOR-CON M10 10 MEQ TBCR 1 po daily POTASSIUM CHLORIDE CK CR 21559217653 Active Nicola Macias NADOLOL 40 MG TABS 1 po daily NADOLOL 72859631727 Active Nicola Macias Immunizations Vaccine Administration Date [...] None Encounters Code Encounter Date Provider Facility CPT-40766 Ofc Vst, Est Level III 13:26:46 CDT Mili Gautam DO, FACP CPT-68407 Ofc Vst, Est Level III 17:39:31 [employer] Mili Gautam DO, FACP CPT-16097 Ofc Vst, Est Level III 15:09:46 [employer] Mili Gautam [facility] CPT-08184 Ofc Vst, Est Level III 17:42:49 [employer] Mili Gautam DO, FACP CPT-45821 Ofc Vst, Est Level III 14:15:29 [employer] Mili Gautam, DO, FACP CPT-86720 Ofc Vst, Est Level III 12:57:33 [employer] Mili Gautam, DO, FACP CPT-84979 Ofc Vst, Est Level IV 13:36:51 [employer] Mili Gautam, DO, FACP CPT-29006 Ofc Vst, Est Level III 13:13:04 [employer] Mili Gautam, DO, FACP CPT-52705 Ofc Vst, Est Level III 14:17:29 CDT Mili Gautam, DO, FACP CPT-17005 Ofc Vst, Est Level III 16:26:29 CDT Mili Gautam, DO, FACP CPT-76083 Ofc Vst, Est Level III 15:16:40 CDT Mili Metz Gautam, DO, FACP CPT-60507 Ofc Vst, Est Level III 12:01:38 CDT Mili Metz Gautam, DO, FACP CPT-94517 Ofc Vst, Est Level III 19:36:46 [employer] Mili Metz Gautam, DO, FACP CPT-72397 Ofc Vst, Est Level III 15:45:49 [employer] Mili Metz Gautam, DO, FACP CPT-11151 Ofc Vst, Est Level IV 14:05:12 CDT Mili Metz Lotus, DO, FACP CPT-91707 Ofc Vst, Est Level IV 11:38:35 [employer] Mili Metz Lotus, DO, FACP CPT-36248 Ofc Vst, Est Level IV 12:15:39 [employer] Mili Metz Lotus, DO, FACP CPT-75659 Ofc Vst, Est Level IV 10:49:39 CDT Mili Metz Lotus, DO, FACP CPT-00462 Ofc Vst, Est Level III 11:12:31 CDT Mili Metz Lotus, DO, FACP CPT-40016 Ofc Vst, Est Level IV 11:24:11 CDT Miligt Metz Lotus, DO, FACP CPT-20295 Ofc Vst, Est Level IV 10:56:53 [employer] Mili Metz Lotus, DO, FACP CPT-68610 Ofc Vst, Est Level IV 10:23:39 CDT Mili Metz Lotus, DO, FACP CPT-35458 Ofc Vst, Est Level IV 13:45:21 CDT Miligt Metz Lotus, DO, FACP CPT-15343 Ofc Vst, Est Level III 14:30:43 CDT Miligt [facility] CPT-97778 Ofc Vst, Est Level IV 10:27:11 [employer] Miligt Metz Lotus, DO, FACP CPT-72303 Ofc Vst, Est Level IV 10:00:49 CDT Mili Malka Metz Lotus, DO, FACP CPT-27857 Ofc Vst, Est Level III 16:29:04 CDT Miligt Metz Lotus, DO, FACP CPT-39559 Ofc Vst, Est Level IV 10:17:09 CDT Miligt Metz Lotus, DO, FACP CPT-18132 Ofc Vst, Est Level IV 09:20:45 [employer] Miligt Metz Lotus, DO, FACP CPT-99450 Ofc Vst, Est Level IV 10:24:24 CDT Miligt Metz Lotus, DO, FACP CPT-37148 Ofc Vst, Est Level III 13:19:51 CDT Miligt Metz Lotus, DO, FACP CPT-05385 Ofc Vst, Est Level IV 16:20:29 CDT Miligt Metz Lotus, DO, FACP CPT-35973 Ofc Vst, Est Level IV 10:16:23 CDT Miligt Metz Lotus, DO, FACP CPT-24953 Ofc Vst, Est Level IV 10:30:07 [employer] Mili Metz Lotus, DO, FACP CPT-20781 Ofc Vst, Est Level III 10:40:49 CDT Mili Malka Metz Lotus, DO, FACP CPT-06266 Ofc Vst, Est Level III 10:16:25 CDT Miligt Gautam, DO, FACP CPT-15183 Ofc Vst, Est Level III 10:25:50 CDT Mili Malka Gautam, DO, FACP CPT-86993 Ofc Vst, Est Level IV 10:39:21 CDT Miligt Gautam [facility] [place] CPT-67863 Ofc Vst, Est Level IV 16:03:05 CDT Mili Malka Gautam [facility] [place] CPT-88574 Ofc Vst, Est Level III 14:54:11 [employer] Mili Gautam [facility] [place] CPT-16950 Ofc Vst, Est Level III 15:34:35 CDT Miligt Gautam [facility] [place] CPT-17383 Ofc Vst, Est Level IV 10:31:02 CDT Mili Malka Gautam [facility] [place] CPT-30376 Ofc Vst, Est Level III 11:13:15 CDT Miligt Gautam [facility] [place] CPT-58894 Ofc Vst, Est Level IV 10:12:47 CDT Miligt Gautam [facility] [place] CPT-25539 Ofc Vst, Est Level III 15:47:34 [employer] Mili Gautam [facility] [place] CPT-31924 Ofc Vst, Est Level IV 11:06:54 [employer] Mili Gautam [facility] [place] CPT-83448 Ofc Vst, Est Level IV 10:42:38 CDT Miligt Gautam [facility] [place] CPT-53427 Ofc Vst, Est Level IV 11:22:18 CDT Miligt Gautam [facility] [place] CPT-24503 Ofc Vst, Est Level IV 15:48:16 CDT Mili Malka Gautam [facility] [place] CPT-41110 Ofc Vst, Est Level IV 13:08:33 CDT Mili Gautam [facility] [place] CPT-80271 Ofc Vst, Est Level III 13:21:55 [employer] Mili Gautam [facility] [place] CPT-74852 Ofc Vst, Est Level IV 13:13:53 [employer] Mili Gautam [facility] [place] CPT-50202 Ofc Vst, Est Level III 17:49:28 [employer] Mili Gautam [facility] [place] CPT-04907 Ofc Vst, Est Level IV 17:29:41 [employer] Mili Gautam [facility] [place] CPT-34377 Ofc Vst, Est Level IV 13:09:45 [employer] Mili Gautam [facility] [place] CPT-58707 Ofc Vst, Est Level IV 19:10:11 CDT Mili Gautam [facility] [place] CPT-33520 Ofc Vst, New Level IV 18:05:12 CDT Mili Gautam [facility] [place] Procedures Code Procedure Name Date Entry Date Standard Description CPT-G0439 Medicare Annual Wellness Visit 14:05:26 CDT CPT-G8446 E-Prescribing not done due to controlled substance 14:15 :29 [employer] CPT-G8443 E-Prescribing Medication Sent 12:57:33 [employer] CPT-G8445 E-Prescribing Not sent due to no medication given 13:36: 51 [employer] CPT-G8443 E-Prescribing Medication Sent 13:13:04 [employer] CPT-G8443 E-Prescribing Medication Sent 14:17:29 CDT CPT-G8443 E-Prescribing Medication Sent 16:26:29 CDT CPT-G8445 E-Prescribing Not sent due to no medication given 15:16: 40 CDT CPT-G8445 E-Prescribing Not sent due to no medication given 12:01: 38 CDT CPT-G8445 E-Prescribing Not sent due to no medication given 19:36: 46 [employer] CPT-G8443 E-Prescribing Medication Sent 15:45:49 [employer] CPT-G8443 E-Prescribing Medication Sent 15:32:38 CDT CPT-G0438 Medicare Annual Wellness Visit Initial 15:32:38 CDT CPT-G8446 E-Prescribing not done due to controlled substance 16:29 :04 CDT CPT-G8443 E-Prescribing Medication Sent 10:17:09 CDT CPT-38705 Injection, Pneumovax 10:24:24 CDT CPT-44189 Excision of Benign Lesion 2.1-3.0 cm 10:32:03 CDT 09/22 CPT-43257 Excision of Malignant lesion 2.1-3.0 cm 16:12:48 CDT
--- OUTSIDE RECORDS SUMMARY | 2017-09-22 08:59 | XMS REPORT | Clinical Summary ---
Author Author User, MARA Organization [facility] Address Unknown Phone Allergies, Adverse Reactions, [...] TABS 1 PO DAILY PRN SWELLING FUROSEMIDE 68043874802 Active Alexus Patel DIFLUCAN 100 MG TAB 1 PO daily for 3 days FLUCONAZOLE 78657557834 No Longer Active Alexus Patel PROAIR HFA 108 (90 BASE) MCG/ACT AERS 2 puff Q4 hrs prn wheezing ALBUTEROL SULFATE 61866662992 No Longer Active Mili Gautam SINGULAIR 10 MG TABS 1 PO QHS MONTELUKAST SODIUM 17457770423 No Longer Active Mili Gautam ZOSTAVAX 68957 UNT/0.65ML SOLR 1 injection once to prevent Shingles ZOSTER VACCINE LIVE 44431980730 No Longer Active Mili Gautam MOBIC 15 MG TABS 1 PO daily MELOXICAM 19187103234 Active Alexus Patel BACTRIM DS 800-160 MG TAB 1 PO BID TRIMETHOPRIM- SULFAMETHOXAZOLE 03378798448 No Longer Active Mili Gautam AUGMENTIN 500-125 MG TAB 1 PO BID AMOXICILLIN-POT CLAVULANATE 58456697675 No Longer Active Mili Gautam TERAZOL 7 0.4 % CREA 1 applicator full per vagina QHS for 7 days TERCONAZOLE VAGINAL 98025024064 No Longer Active Mili Gautam ANUSOL-HC 2.5 % CREAM apply to affected area TID prn HYDROCORTISONE (RECTAL) 64077742466 Active Mili Gautam AUGMENTIN 500-125 MG TAB 1 PO BID AMOXICILLIN-POT CLAVULANATE 30842613213 No Longer Active Alexus Patel PYRIDIUM 200 MG TAB 1 PO TID prn urinary urgency PHENAZOPYRIDINE HCL 39424586753 No Longer Active Alexus Patel CIPRO 250 MG TABS 1 PO BID CIPROFLOXACIN HCL 07728413236 No Longer Active Alexus Patel ANUSOL-HC 25 MG SUPPOSITORY 1 UT TID prn HYDROCORTISONE NATALIE ( RECTAL) 57895056786 No Longer Active Mili Gautam ANUSOL-HC 2.5 % CREAM as directed HYDROCORTISONE (RECTAL) 77593155882 No Longer Active Miligt Gautam ADVAIR DISKUS 250-50 MCG/DOSE MISC 1 Puff BID FLUTICASONE-SALMETEROL 44246203777 No Longer Active Mili Malka Gautam LASIX 40 MG TABS 1 PO daily prn for swelling FUROSEMIDE 43348201032 No Longer Active Mili Malka Gautam CEFDINIR 300 MG CAPS 1 PO BID CEFDINIR 60236219257 No Longer Active Miligt WALDROP'S NASAL SPRAY (DEXAMETHASONE, GENTAMICIN, SALINE) 2 puffs each nostril TID for [address] WALDROP'Lashay NASAL SPRAY ( DEXAMETHASONE, GENTAMICIN, SALINE) No Longer Active Miligt Gautam PREMARIN 0.625 MG/GM CREA apply 2 inch ribbon outside the urethra once night a week ESTROGENS, CONJUGATED VAGINAL 14277237287 No Longer Active Miligt Gautam BACTROBAN 2 % CREAM Apply to affected area TID. MUPIROCIN CALCIUM 23967762143 No Longer Active Miligt Gautam NYSTATIN 112336 UNIT/GM CREA apply to affected areas TID for 7 days NYSTATIN 17143351520 No Longer Active Miligt Gautam FLAGYL 500 MG TABS 1 PO TID METRONIDAZOLE 34360877862 No Longer Active Miligt Gautam LEVAQUIN 500 MG TAB 1 PO QD LEVOFLOXACIN 56572533641 No Longer Active Mili Malka Gautam FLAGYL 500 MG TABS 1 PO TID METRONIDAZOLE 38459821792 No Longer Active Mili Malka Gautam LEVAQUIN 500 MG TAB 1 PO QD LEVOFLOXACIN 66486469039 No Longer Active Mili Malka Gautam LAMISIL 250 MG TABS 1 PO daily TERBINAFINE HCL 55036380271 No Longer Active Mili Malka Gautam PYRIDIUM 200 MG TAB 1 PO TID prn urinary urgency PHENAZOPYRIDINE HCL 04255858323 No Longer Active Miligt Gautam FISH OIL 1000 MG CAPS 2 PO QD OMEGA-3 FATTY ACIDS 74329247195 Active Mili Gautam ESTRACE 1 MG TABS 1 PO daily ESTRADIOL 88019036712 Active Nicola Macias CEPHALEXIN 500 MG CAPS 1 po TID x 5 days CEPHALEXIN 68185101900 No Longer Active Mili Malka Gautam PYRIDIUM 200 MG TAB 1 PO TID prn urinary urgency PHENAZOPYRIDINE HCL 92847924011 No Longer Active Dorina Armond MIRALAX POWD 1 scoop in 1/2 cup water every 3 hrs prn constipation. POLYETHYLENE GLYCOL 3350 68362249528 No Longer Active Miligt Gautam PYRIDIUM 200 MG TABS 1 po TID x 3 days PHENAZOPYRIDINE HCL 04831153062 No Longer Active Alexus Patel AUGMENTIN 500-125 MG TAB 1 PO BID x 7 days AMOXICILLIN-POT CLAVULANATE 53250667871 No Longer Active Mili Gautam SYNTHROID 0.05 MG TAB 1 PO daily on empty stomach LEVOTHYROXINE SODIUM 03492808600 Active Alexus Patel ROBITUSSIN A-C 10-100 MG/5ML SYRUP 1 teaspoon PO Q 4-6 hr prn ROBITUSSIN A-C 10-100 MG/5ML SYRUP No Longer Active Mili WALDROP'S NASAL SPRAY (DEXAMETHASONE, GENTAMICIN, SALINE) 2 puffs each nostril TID for [address] PANDEY NASAL SPRAY ( DEXAMETHASONE, GENTAMICIN, SALINE) No Longer Active Mili Gautam CIPRO 500 MG TAB 1 PO BID for 7 days CIPROFLOXACIN HCL 11226992831 No Longer Active Mili Gautam TABS 1 PO BID prn for nervous stomach PHENOBARBITAL-BELLADONNA ALK 46029779720 No Longer Active Mili Gautam AUGMENTIN 875-125 MG TAB 1 PO BID AMOXICILLIN-POT CLAVULANATE 56864560025 No Longer Active Miligt Gautam TESSALON 200 MG CAPS 1 PO TID prn cough BENZONATATE 93726775144 No Longer Active Mili Gautam ALEVE 220 MG TABS 1 PO BID NAPROXEN SODIUM 38157415608 No Longer Active Mili WALDROP'Lashay NASAL SPRAY (DEXAMETHASONE, GENTAMICIN, SALINE) 2 puffs each nostril TID for [address] WALDROP'Lashay NASAL SPRAY ( DEXAMETHASONE, GENTAMICIN, SALINE) No Longer Active Mili Gautam CIPRO 500 MG TABS 1 PO BID CIPROFLOXACIN HCL 18549099205 No Longer Active Mili Gautam PYRIDIUM 200 MG TAB 1 PO TID prn urinary urgency PHENAZOPYRIDINE HCL 50476009417 No Longer Active Chacorta Wylie AUGMENTIN 500-125 MG TAB 1 PO BID AMOXICILLIN-POT CLAVULANATE 65774931087 No Longer Active Chacorta Wylie IBUPROFEN 400 MG TABS 1 po TID IBUPROFEN 03800336559 No Longer Active Mili Gautam VITAMIN D 1000 UNIT TABS 1 PO Daily CHOLECALCIFEROL 93340696929 Active Miligt Gautam PYRIDIUM 200 MG TABS 1 po TID x 3 days PHENAZOPYRIDINE HCL 44344287979 No Longer Active Alexus Patel MACROBID 100 MG CAPS 1 po BID x 7 days NITROFURANTOIN MONOHYD MACRO 67011833061 No Longer Active Alexus Patel CRANBERRY 300 MG TABS 1 PO daily CRANBERRY 89068423384 No Longer Active Mili Malka Gautam BACTROBAN 2 % OINT Apply QID prn MUPIROCIN 99018604496 No Longer Active Mili Malka Gautam CEPHALEXIN 500 MG TABS 1 po QID x 10 days CEPHALEXIN 55511105275 No Longer Active Mili Malka Gautam NAPROXEN 500 MG TABS ! PO Q6hrs prn NAPROXEN 21124623953 No Longer Active Mili Malka Gautam VITAMIN B-12 1000 MCG TABS 1 po daily CYANOCOBALAMIN 22089256055 No Longer Active Mili Malka Gautam GINKOBA 40 MG TABS 1 PO daily GINKGO BILOBA 11180273175 No Longer Active Mili Malka Gautam PROMETHAZINE HCL 25 MG TABS 1 PO Q6hrs prn nausea PROMETHAZINE HCL 80543756218 No Longer Active Mili Malka Gautam PYRIDIUM 200 MG TAB 1 PO TID for 3 days PHENAZOPYRIDINE HCL 70272580168 No Longer Active Mili Malka Gautam PRAVACHOL 20 MG TABS 1 po daily PRAVASTATIN SODIUM 71803753116 Active Nicola Macias PYRIDIUM 200 MG TAB 1 PO TID PHENAZOPYRIDINE HCL 10722046253 No Longer Active Mili Malka Gautam AUGMENTIN 500-125 MG TAB 1 PO BID AMOXICILLIN-POT CLAVULANATE 84102104458 No Longer Active Mili Malka Gautam AUGMENTIN 500-125 MG TAB 1 PO BID AMOXICILLIN-POT CLAVULANATE 35627020645 No Longer Active Mili Malka Gautam BACTRIM DS 800-160 MG TAB 1 po BID for 7 days TRIMETHOPRIM-SULFAMETHOXAZOLE 39784102211 No Longer Active Zahraa PANDEY NASAL SPRAY (DEXAMETHASONE, GENTAMICIN, SALINE) 2 puffs each nostril TID DR. PANDEY NASAL SPRAY (DEXAMETHASONE, GENTAMICIN, SALINE) No Longer Active Mili Gautam AUGMENTIN 500-125 MG TAB 1 PO BID AMOXICILLIN-POT CLAVULANATE 10017212798 No Longer Active Mili Gautam MUCINEX 600 MG TB12 1 po BID GUAIFENESIN 38274971618 No Longer Active Mili Gautam MUCINEX 600 MG TB12 1 PO BID for 7 days GUAIFENESIN 74670644978 No Longer Active Mili Gautam AUGMENTIN 875-125 MG TAB 1 PO BID AMOXICILLIN-POT CLAVULANATE 64725421513 No Longer Active Mili PANDEY NASAL SPRAY (DEXAMETHASONE, GENTAMICIN, SALINE) 2 puffs each nostril TID for [address] PANDEY NASAL SPRAY ( DEXAMETHASONE, GENTAMICIN, SALINE) No Longer Active Alexus Patel DOXYCYCLINE HYCLATE 100 MG CAP 1 po BID for 7 days DOXYCYCLINE HYCLATE 04052431938 No Longer Active Alexus Patel DECADRON/GARAMYCIN NASAL SPRAY 1 spray BID prn from Dr Waldrop 2005 DECADRON/GARAMYCIN NASAL SPRAY No Longer Active Mili PANDEY NASAL SPRAY (DEXAMETHASONE, GENTAMICIN, SALINE) 2 puffs each nostril TID for [address] PANDEY NASAL SPRAY ( DEXAMETHASONE, GENTAMICIN, SALINE) No Longer Active Mili Gautam AUGMENTIN 875-125 MG TAB 1 PO BID for 7 days AMOXICILLIN-POT CLAVULANATE 53940261155 No Longer Active Mili Gautam GARLIC 500 MG CAPS 1 PO daily GARLIC 30074160850 Active Mili Malka Gautam VALIUM 2 MG TAB 1 PO Q6hrs prn DIAZEPAM 33761514722 No Longer Active Mili Malka Gautam KENALOG 0.1 % CREA apply to affected areas on skin BID for 7 days TRIAMCINOLONE ACETONIDE 65008775203 No Longer Active Mili Malka Gautam DOXYCYCLINE HYCLATE 100 MG CAPS 1 PO BID DOXYCYCLINE HYCLATE 33205076790 No Longer Active Mili Malka Gautam HYDROCHLOROTHIAZIDE 12.5 MG CAPS 1 PO QD HYDROCHLOROTHIAZIDE 84382869831 Active Nicola Macias DIOVAN 320 MG TABS 1 PO daily for BP VALSARTAN 25639281110 Active Nicola Macias K-DUR 20 MEQ TAB CR 1 PO QOD POTASSIUM CHLORIDE 53491600297 No Longer Active Mili Malka Gautam ZYRTEC 10 MG TABS 1 po daily prn CETIRIZINE HCL 82833854648 Active Mili Malka Gautam XANAX 0.25 MG TABS 1 po q 6 hrs. prn ALPRAZOLAM 42208317053 Active Mili Malka Gautam LASIX 40 MG TAB 1 PO QOD FUROSEMIDE 70853102318 No Longer Active Mili Malka Gautam NORVASC 10 MG TAB 1 PO QD AMLODIPINE BESYLATE 58865376075 No Longer Active Mili Malka Gautam DIOVAN HCT 160-12.5 MG TABS 2 PO QD VALSARTAN- HYDROCHLOROTHIAZIDE 70331791100 No Longer Active Crystal LaGalle PAXIL CR 12.5 MG TB24 1 PO QD PAROXETINE HCL 65046522000 No Longer Active Mili Malka Gautam CORICIDIN HBP FLU 15-500-2 MG TABS 1 PO Q12hrs DM- APAP-CPM 01871718696 No Longer Active Mili Malka Gautam XANAX 0.25 MG TABS 1 every 4-6hrs scheduled ALPRAZOLAM 24854581062 No Longer Active Mili Malka Gautam PREMARIN 1.25 MG TABS 1 PO QD ESTROGENS CONJUGATED 58157783451 No Longer Active Alexus Patel CENESTIN 1.25 MG TABS 1 po daily ESTROGENS CONJ SYNTHETIC A 98381112992 No Longer Active Mili Malka Gautam BUSPAR 5 MG TABS 1/2 - 1 tab PO QD prn BUSPIRONE HCL 10196184438 No Longer Active Mili Malka Gautam BACTRIM DS 800-160 MG TAB 1 PO BID TRIMETHOPRIM- SULFAMETHOXAZOLE 72287771259 No Longer Active Militg Gautam LIPITOR 10 MG TABS 1/2 po daily ATORVASTATIN CALCIUM 37130711760 No Longer Active Chrissy Piva ASPIRIN 81 MG TABS 1 PO QD ASPIRIN 26720270934 Active Miligt Gautam CITRACAL + D 250-62.5 MG-IU TABS 1 po daily CALCIUM CITRATE-VITAMIN D 43697505336 Active Mili Malka Gautam MULTIVITAMINS TABS 1 po daily MULTIPLE VITAMIN 79732969535 Active Miligt Gautam KLOR-CON M10 10 MEQ TBCR 1 po daily POTASSIUM CHLORIDE CK CR 37576072129 Active Nicola Macias NADOLOL 40 MG TABS 1 po daily NADOLOL 77781957126 Active Nicola Macias Immunizations Vaccine Administration Date [...] None Encounters Code Encounter Date Provider Facility CPT-68076 Ofc Vst, Est Level III 13:26:46 CDT Mili Gautam DO, FACP CPT-14291 Ofc Vst, Est Level III 17:39:31 [employer] Mili Gautam DO, FACP CPT-88704 Ofc Vst, Est Level III 15:09:46 [employer] Mili Gautam [facility] CPT-15970 Ofc Vst, Est Level III 17:42:49 [employer] Mili Gautam DO, FACP CPT-90047 Ofc Vst, Est Level III 14:15:29 [employer] Mili Gautam, DO, FACP CPT-39402 Ofc Vst, Est Level III 12:57:33 [employer] Mili Gautam, DO, FACP CPT-37803 Ofc Vst, Est Level IV 13:36:51 [employer] Mili Gautam, DO, FACP CPT-58412 Ofc Vst, Est Level III 13:13:04 [employer] Mili Gautam, DO, FACP CPT-88984 Ofc Vst, Est Level III 14:17:29 CDT Mili Gautam, DO, FACP CPT-18614 Ofc Vst, Est Level III 16:26:29 CDT Mili Gautam, DO, FACP CPT-94985 Ofc Vst, Est Level III 15:16:40 CDT Mili Metz Gautam, DO, FACP CPT-17264 Ofc Vst, Est Level III 12:01:38 CDT Mili Metz Gautam, DO, FACP CPT-90799 Ofc Vst, Est Level III 19:36:46 [employer] Mili Metz Gautam, DO, FACP CPT-19654 Ofc Vst, Est Level III 15:45:49 [employer] Mili Metz Gautam, DO, FACP CPT-88566 Ofc Vst, Est Level IV 14:05:12 CDT Mili Metz Lotus, DO, FACP CPT-26564 Ofc Vst, Est Level IV 11:38:35 [employer] Mili Metz Lotus, DO, FACP CPT-93653 Ofc Vst, Est Level IV 12:15:39 [employer] Mili Metz Lotus, DO, FACP CPT-94397 Ofc Vst, Est Level IV 10:49:39 CDT Mili Metz Lotus, DO, FACP CPT-05416 Ofc Vst, Est Level III 11:12:31 CDT Mili Metz Lotus, DO, FACP CPT-65960 Ofc Vst, Est Level IV 11:24:11 CDT Miligt Metz Lotus, DO, FACP CPT-03754 Ofc Vst, Est Level IV 10:56:53 [employer] Mili Metz Lotus, DO, FACP CPT-35312 Ofc Vst, Est Level IV 10:23:39 CDT Mili Metz Lotus, DO, FACP CPT-62130 Ofc Vst, Est Level IV 13:45:21 CDT Miligt Metz Lotus, DO, FACP CPT-51620 Ofc Vst, Est Level III 14:30:43 CDT Miligt [facility] CPT-55498 Ofc Vst, Est Level IV 10:27:11 [employer] Miligt Metz Lotus, DO, FACP CPT-44580 Ofc Vst, Est Level IV 10:00:49 CDT Mili Malka Metz Lotus, DO, FACP CPT-88128 Ofc Vst, Est Level III 16:29:04 CDT Miligt Metz Lotus, DO, FACP CPT-97007 Ofc Vst, Est Level IV 10:17:09 CDT Miligt Metz Lotus, DO, FACP CPT-21629 Ofc Vst, Est Level IV 09:20:45 [employer] Miligt Metz Lotus, DO, FACP CPT-00417 Ofc Vst, Est Level IV 10:24:24 CDT Miligt Metz Lotus, DO, FACP CPT-84637 Ofc Vst, Est Level III 13:19:51 CDT Miligt Metz Lotus, DO, FACP CPT-30502 Ofc Vst, Est Level IV 16:20:29 CDT Miligt Metz Lotus, DO, FACP CPT-98587 Ofc Vst, Est Level IV 10:16:23 CDT Miligt Metz Lotus, DO, FACP CPT-64208 Ofc Vst, Est Level IV 10:30:07 [employer] Mili Metz Lotus, DO, FACP CPT-46233 Ofc Vst, Est Level III 10:40:49 CDT Mili Malka Metz Lotus, DO, FACP CPT-74846 Ofc Vst, Est Level III 10:16:25 CDT Miligt Gautam, DO, FACP CPT-66581 Ofc Vst, Est Level III 10:25:50 CDT Mili Malka Gautam, DO, FACP CPT-40158 Ofc Vst, Est Level IV 10:39:21 CDT Miligt Gautam [facility] [place] CPT-65562 Ofc Vst, Est Level IV 16:03:05 CDT Mili Malka Gautam [facility] [place] CPT-09229 Ofc Vst, Est Level III 14:54:11 [employer] Mili Gautam [facility] [place] CPT-74624 Ofc Vst, Est Level III 15:34:35 CDT Miligt Gautam [facility] [place] CPT-96750 Ofc Vst, Est Level IV 10:31:02 CDT Mili Malka Gautam [facility] [place] CPT-47074 Ofc Vst, Est Level III 11:13:15 CDT Miligt Gautam [facility] [place] CPT-29067 Ofc Vst, Est Level IV 10:12:47 CDT Miligt Gautam [facility] [place] CPT-81082 Ofc Vst, Est Level III 15:47:34 [employer] Mili Gautam [facility] [place] CPT-01936 Ofc Vst, Est Level IV 11:06:54 [employer] Mili Gautam [facility] [place] CPT-22784 Ofc Vst, Est Level IV 10:42:38 CDT Miligt Gautam [facility] [place] CPT-19612 Ofc Vst, Est Level IV 11:22:18 CDT Miligt Gautam [facility] [place] CPT-41544 Ofc Vst, Est Level IV 15:48:16 CDT Mili Malka Gautam [facility] [place] CPT-57946 Ofc Vst, Est Level IV 13:08:33 CDT Mili Gautam [facility] [place] CPT-52103 Ofc Vst, Est Level III 13:21:55 [employer] Mili Gautam [facility] [place] CPT-26591 Ofc Vst, Est Level IV 13:13:53 [employer] Mili Gautam [facility] [place] CPT-56285 Ofc Vst, Est Level III 17:49:28 [employer] Mili Gautam [facility] [place] CPT-44201 Ofc Vst, Est Level IV 17:29:41 [employer] Mili Gautam [facility] [place] CPT-55605 Ofc Vst, Est Level IV 13:09:45 [employer] Mili Gautam [facility] [place] CPT-47836 Ofc Vst, Est Level IV 19:10:11 CDT Mili Gautam [facility] [place] CPT-72726 Ofc Vst, New Level IV 18:05:12 CDT Mili Gautam [facility] [place] Procedures Code Procedure Name Date Entry Date Standard Description CPT-G0439 Medicare Annual Wellness Visit 14:05:26 CDT CPT-G8446 E-Prescribing not done due to controlled substance 14:15 :29 [employer] CPT-G8443 E-Prescribing Medication Sent 12:57:33 [employer] CPT-G8445 E-Prescribing Not sent due to no medication given 13:36: 51 [employer] CPT-G8443 E-Prescribing Medication Sent 13:13:04 [employer] CPT-G8443 E-Prescribing Medication Sent 14:17:29 CDT CPT-G8443 E-Prescribing Medication Sent 16:26:29 CDT CPT-G8445 E-Prescribing Not sent due to no medication given 15:16: 40 CDT CPT-G8445 E-Prescribing Not sent due to no medication given 12:01: 38 CDT CPT-G8445 E-Prescribing Not sent due to no medication given 19:36: 46 [employer] CPT-G8443 E-Prescribing Medication Sent 15:45:49 [employer] CPT-G8443 E-Prescribing Medication Sent 15:32:38 CDT CPT-G0438 Medicare Annual Wellness Visit Initial 15:32:38 CDT CPT-G8446 E-Prescribing not done due to controlled substance 16:29 :04 CDT CPT-G8443 E-Prescribing Medication Sent 10:17:09 CDT CPT-57091 Injection, Pneumovax 10:24:24 CDT CPT-84617 Excision of Benign Lesion 2.1-3.0 cm 10:32:03 CDT 09/22 CPT-22689 Excision of Malignant lesion 2.1-3.0 cm 16:12:48 CDT
--- OUTSIDE RECORDS SUMMARY | 2017-09-22 08:59 | XMS REPORT | Clinical Summary ---
Author Author User, MARA Organization [facility] Address Unknown Phone Allergies, Adverse Reactions, [...] TABS 1 PO DAILY PRN SWELLING FUROSEMIDE 03143185603 Active Alexus Patel DIFLUCAN 100 MG TAB 1 PO daily for 3 days FLUCONAZOLE 89925659047 No Longer Active Alexus Patel PROAIR HFA 108 (90 BASE) MCG/ACT AERS 2 puff Q4 hrs prn wheezing ALBUTEROL SULFATE 05597623108 No Longer Active Mili Gautam SINGULAIR 10 MG TABS 1 PO QHS MONTELUKAST SODIUM 46487191671 No Longer Active Mili Gautam ZOSTAVAX 66128 UNT/0.65ML SOLR 1 injection once to prevent Shingles ZOSTER VACCINE LIVE 88426151775 No Longer Active Mili Gautam MOBIC 15 MG TABS 1 PO daily MELOXICAM 31425396409 Active Alexus Patel BACTRIM DS 800-160 MG TAB 1 PO BID TRIMETHOPRIM- SULFAMETHOXAZOLE 37084193337 No Longer Active Mili Gautam AUGMENTIN 500-125 MG TAB 1 PO BID AMOXICILLIN-POT CLAVULANATE 47705039907 No Longer Active Mili Gautam TERAZOL 7 0.4 % CREA 1 applicator full per vagina QHS for 7 days TERCONAZOLE VAGINAL 37960943741 No Longer Active Mili Gautam ANUSOL-HC 2.5 % CREAM apply to affected area TID prn HYDROCORTISONE (RECTAL) 22758941921 Active Mili Gautam AUGMENTIN 500-125 MG TAB 1 PO BID AMOXICILLIN-POT CLAVULANATE 76874333534 No Longer Active Alexus Patel PYRIDIUM 200 MG TAB 1 PO TID prn urinary urgency PHENAZOPYRIDINE HCL 57040901802 No Longer Active Alexus Patel CIPRO 250 MG TABS 1 PO BID CIPROFLOXACIN HCL 99871514339 No Longer Active Alexus Patel ANUSOL-HC 25 MG SUPPOSITORY 1 PA TID prn HYDROCORTISONE NATALIE ( RECTAL) 25256265790 No Longer Active Mili Gautam ANUSOL-HC 2.5 % CREAM as directed HYDROCORTISONE (RECTAL) 37106265252 No Longer Active Miligt Gautam ADVAIR DISKUS 250-50 MCG/DOSE MISC 1 Puff BID FLUTICASONE-SALMETEROL 99115826421 No Longer Active Mili Malka Gautam LASIX 40 MG TABS 1 PO daily prn for swelling FUROSEMIDE 91298357879 No Longer Active Mili Malka Gautam CEFDINIR 300 MG CAPS 1 PO BID CEFDINIR 84762313243 No Longer Active Miligt WALDROP'S NASAL SPRAY (DEXAMETHASONE, GENTAMICIN, SALINE) 2 puffs each nostril TID for [address] WALDROP'Lashay NASAL SPRAY ( DEXAMETHASONE, GENTAMICIN, SALINE) No Longer Active Miligt Gautam PREMARIN 0.625 MG/GM CREA apply 2 inch ribbon outside the urethra once night a week ESTROGENS, CONJUGATED VAGINAL 13064419396 No Longer Active Miligt Gautam BACTROBAN 2 % CREAM Apply to affected area TID. MUPIROCIN CALCIUM 49559121556 No Longer Active Miligt Gautam NYSTATIN 414106 UNIT/GM CREA apply to affected areas TID for 7 days NYSTATIN 40362310605 No Longer Active Miligt Gautam FLAGYL 500 MG TABS 1 PO TID METRONIDAZOLE 85277378188 No Longer Active Miligt Gautam LEVAQUIN 500 MG TAB 1 PO QD LEVOFLOXACIN 22504702001 No Longer Active Mili Malka Gautam FLAGYL 500 MG TABS 1 PO TID METRONIDAZOLE 40220465694 No Longer Active Mili Malka Gautam LEVAQUIN 500 MG TAB 1 PO QD LEVOFLOXACIN 44126199083 No Longer Active Mili Malka Gautam LAMISIL 250 MG TABS 1 PO daily TERBINAFINE HCL 76346811728 No Longer Active Mili Malka Gautam PYRIDIUM 200 MG TAB 1 PO TID prn urinary urgency PHENAZOPYRIDINE HCL 40575161697 No Longer Active Miligt Gautam FISH OIL 1000 MG CAPS 2 PO QD OMEGA-3 FATTY ACIDS 28445300068 Active Mili Gautam ESTRACE 1 MG TABS 1 PO daily ESTRADIOL 62374162662 Active Nicola Macias CEPHALEXIN 500 MG CAPS 1 po TID x 5 days CEPHALEXIN 91868374068 No Longer Active Mili Malka Gautam PYRIDIUM 200 MG TAB 1 PO TID prn urinary urgency PHENAZOPYRIDINE HCL 16122882822 No Longer Active Dorina Armond MIRALAX POWD 1 scoop in 1/2 cup water every 3 hrs prn constipation. POLYETHYLENE GLYCOL 3350 11771029064 No Longer Active Miligt Gautam PYRIDIUM 200 MG TABS 1 po TID x 3 days PHENAZOPYRIDINE HCL 02768145471 No Longer Active Alexus Patel AUGMENTIN 500-125 MG TAB 1 PO BID x 7 days AMOXICILLIN-POT CLAVULANATE 21262727790 No Longer Active Mili Gautam SYNTHROID 0.05 MG TAB 1 PO daily on empty stomach LEVOTHYROXINE SODIUM 46027297271 Active Alexus Patel ROBITUSSIN A-C 10-100 MG/5ML SYRUP 1 teaspoon PO Q 4-6 hr prn ROBITUSSIN A-C 10-100 MG/5ML SYRUP No Longer Active Mili WALDROP'S NASAL SPRAY (DEXAMETHASONE, GENTAMICIN, SALINE) 2 puffs each nostril TID for [address] PANDEY NASAL SPRAY ( DEXAMETHASONE, GENTAMICIN, SALINE) No Longer Active Mili Gautam CIPRO 500 MG TAB 1 PO BID for 7 days CIPROFLOXACIN HCL 56320001220 No Longer Active Mili Gautam TABS 1 PO BID prn for nervous stomach PHENOBARBITAL-BELLADONNA ALK 98893866319 No Longer Active Mili Gautam AUGMENTIN 875-125 MG TAB 1 PO BID AMOXICILLIN-POT CLAVULANATE 56260185754 No Longer Active Miligt Gautam TESSALON 200 MG CAPS 1 PO TID prn cough BENZONATATE 70069130433 No Longer Active Mili Gautam ALEVE 220 MG TABS 1 PO BID NAPROXEN SODIUM 33563829747 No Longer Active Mili WALDROP'Lashay NASAL SPRAY (DEXAMETHASONE, GENTAMICIN, SALINE) 2 puffs each nostril TID for [address] WALDROP'Lashay NASAL SPRAY ( DEXAMETHASONE, GENTAMICIN, SALINE) No Longer Active Mili Gautam CIPRO 500 MG TABS 1 PO BID CIPROFLOXACIN HCL 85101507919 No Longer Active Mili Gautam PYRIDIUM 200 MG TAB 1 PO TID prn urinary urgency PHENAZOPYRIDINE HCL 92978462720 No Longer Active Chacorta Wylie AUGMENTIN 500-125 MG TAB 1 PO BID AMOXICILLIN-POT CLAVULANATE 93363325820 No Longer Active Chacorta Wylie IBUPROFEN 400 MG TABS 1 po TID IBUPROFEN 41281980753 No Longer Active Mili Gautam VITAMIN D 1000 UNIT TABS 1 PO Daily CHOLECALCIFEROL 97303204001 Active Miligt Gautam PYRIDIUM 200 MG TABS 1 po TID x 3 days PHENAZOPYRIDINE HCL 30748415153 No Longer Active Alexus Patel MACROBID 100 MG CAPS 1 po BID x 7 days NITROFURANTOIN MONOHYD MACRO 36928132104 No Longer Active Alexus Patel CRANBERRY 300 MG TABS 1 PO daily CRANBERRY 36590407776 No Longer Active Mili Malka Gautam BACTROBAN 2 % OINT Apply QID prn MUPIROCIN 24764028299 No Longer Active Mili Malka Gautam CEPHALEXIN 500 MG TABS 1 po QID x 10 days CEPHALEXIN 70598308753 No Longer Active Mili Malka Gautam NAPROXEN 500 MG TABS ! PO Q6hrs prn NAPROXEN 08920174218 No Longer Active Mili Malka Gautam VITAMIN B-12 1000 MCG TABS 1 po daily CYANOCOBALAMIN 25870779370 No Longer Active Mili Malka Gautam GINKOBA 40 MG TABS 1 PO daily GINKGO BILOBA 74721809105 No Longer Active Mili Malka Gautam PROMETHAZINE HCL 25 MG TABS 1 PO Q6hrs prn nausea PROMETHAZINE HCL 65013581370 No Longer Active Mili Malka Gautam PYRIDIUM 200 MG TAB 1 PO TID for 3 days PHENAZOPYRIDINE HCL 19900312010 No Longer Active Mili Malka Gautam PRAVACHOL 20 MG TABS 1 po daily PRAVASTATIN SODIUM 91688260091 Active Nicola Macias PYRIDIUM 200 MG TAB 1 PO TID PHENAZOPYRIDINE HCL 93081570722 No Longer Active Mili Malka Gautam AUGMENTIN 500-125 MG TAB 1 PO BID AMOXICILLIN-POT CLAVULANATE 55486217445 No Longer Active Mili Malka Gautam AUGMENTIN 500-125 MG TAB 1 PO BID AMOXICILLIN-POT CLAVULANATE 57476113808 No Longer Active Mili Malka Gautam BACTRIM DS 800-160 MG TAB 1 po BID for 7 days TRIMETHOPRIM-SULFAMETHOXAZOLE 52852644738 No Longer Active Zahraa PANDEY NASAL SPRAY (DEXAMETHASONE, GENTAMICIN, SALINE) 2 puffs each nostril TID DR. PANDEY NASAL SPRAY (DEXAMETHASONE, GENTAMICIN, SALINE) No Longer Active Mili Gautam AUGMENTIN 500-125 MG TAB 1 PO BID AMOXICILLIN-POT CLAVULANATE 05724542683 No Longer Active Mili Gautam MUCINEX 600 MG TB12 1 po BID GUAIFENESIN 90727124162 No Longer Active Mili Gautam MUCINEX 600 MG TB12 1 PO BID for 7 days GUAIFENESIN 30768727132 No Longer Active Mili Gautam AUGMENTIN 875-125 MG TAB 1 PO BID AMOXICILLIN-POT CLAVULANATE 18000882912 No Longer Active Mili PANDEY NASAL SPRAY (DEXAMETHASONE, GENTAMICIN, SALINE) 2 puffs each nostril TID for [address] PANDEY NASAL SPRAY ( DEXAMETHASONE, GENTAMICIN, SALINE) No Longer Active Alexus Patel DOXYCYCLINE HYCLATE 100 MG CAP 1 po BID for 7 days DOXYCYCLINE HYCLATE 79954251038 No Longer Active Alexus Patel DECADRON/GARAMYCIN NASAL SPRAY 1 spray BID prn from Dr Waldrop 2005 DECADRON/GARAMYCIN NASAL SPRAY No Longer Active Mili PANDEY NASAL SPRAY (DEXAMETHASONE, GENTAMICIN, SALINE) 2 puffs each nostril TID for [address] PANDEY NASAL SPRAY ( DEXAMETHASONE, GENTAMICIN, SALINE) No Longer Active Mili Gautam AUGMENTIN 875-125 MG TAB 1 PO BID for 7 days AMOXICILLIN-POT CLAVULANATE 23305341798 No Longer Active Mili Gautam GARLIC 500 MG CAPS 1 PO daily GARLIC 93257122925 Active Mili Malka Gautam VALIUM 2 MG TAB 1 PO Q6hrs prn DIAZEPAM 64933538076 No Longer Active Mili Malka Gautam KENALOG 0.1 % CREA apply to affected areas on skin BID for 7 days TRIAMCINOLONE ACETONIDE 46694475921 No Longer Active Mili Malka Gautam DOXYCYCLINE HYCLATE 100 MG CAPS 1 PO BID DOXYCYCLINE HYCLATE 00730329396 No Longer Active Mili Malka Gautam HYDROCHLOROTHIAZIDE 12.5 MG CAPS 1 PO QD HYDROCHLOROTHIAZIDE 29056587225 Active Nicola Macias DIOVAN 320 MG TABS 1 PO daily for BP VALSARTAN 23532304427 Active Nicola Macias K-DUR 20 MEQ TAB CR 1 PO QOD POTASSIUM CHLORIDE 80404432300 No Longer Active Mili Malka Gautam ZYRTEC 10 MG TABS 1 po daily prn CETIRIZINE HCL 08373310717 Active Mili Malka Gautam XANAX 0.25 MG TABS 1 po q 6 hrs. prn ALPRAZOLAM 21010389270 Active Mili Malka Gautam LASIX 40 MG TAB 1 PO QOD FUROSEMIDE 59267966677 No Longer Active Mili Malka Gautam NORVASC 10 MG TAB 1 PO QD AMLODIPINE BESYLATE 07722782791 No Longer Active Mili Malka Gautam DIOVAN HCT 160-12.5 MG TABS 2 PO QD VALSARTAN- HYDROCHLOROTHIAZIDE 74837387799 No Longer Active Crystal LaGalle PAXIL CR 12.5 MG TB24 1 PO QD PAROXETINE HCL 09176704895 No Longer Active Mili Malka Gautam CORICIDIN HBP FLU 15-500-2 MG TABS 1 PO Q12hrs DM- APAP-CPM 26701079980 No Longer Active Mili Malka Gautam XANAX 0.25 MG TABS 1 every 4-6hrs scheduled ALPRAZOLAM 58411066046 No Longer Active Mili Malka Gautam PREMARIN 1.25 MG TABS 1 PO QD ESTROGENS CONJUGATED 37358152108 No Longer Active Alexus Patel CENESTIN 1.25 MG TABS 1 po daily ESTROGENS CONJ SYNTHETIC A 43787111051 No Longer Active Mili Malka Gautam BUSPAR 5 MG TABS 1/2 - 1 tab PO QD prn BUSPIRONE HCL 37434664734 No Longer Active Mili Malka Gautam BACTRIM DS 800-160 MG TAB 1 PO BID TRIMETHOPRIM- SULFAMETHOXAZOLE 10512890045 No Longer Active Miligt Gautam LIPITOR 10 MG TABS 1/2 po daily ATORVASTATIN CALCIUM 24204670414 No Longer Active Chrissy Piva ASPIRIN 81 MG TABS 1 PO QD ASPIRIN 97587557295 Active Miligt Gautam CITRACAL + D 250-62.5 MG-IU TABS 1 po daily CALCIUM CITRATE-VITAMIN D 92712825260 Active Mili Malka Gautam MULTIVITAMINS TABS 1 po daily MULTIPLE VITAMIN 52994637748 Active Miligt Gautam KLOR-CON M10 10 MEQ TBCR 1 po daily POTASSIUM CHLORIDE CK CR 83264247099 Active Nicola Macias NADOLOL 40 MG TABS 1 po daily NADOLOL 21080952482 Active Nicola Macias Immunizations Vaccine Administration Date [...] None Encounters Code Encounter Date Provider Facility CPT-93349 Ofc Vst, Est Level III 13:26:46 CDT Mili Gautam DO, FACP CPT-80016 Ofc Vst, Est Level III 17:39:31 [employer] Mili Gautam DO, FACP CPT-23539 Ofc Vst, Est Level III 15:09:46 [employer] Mili Gautam [facility] CPT-74719 Ofc Vst, Est Level III 17:42:49 [employer] Mili Gautam DO, FACP CPT-37855 Ofc Vst, Est Level III 14:15:29 [employer] Mili Gautam, DO, FACP CPT-61126 Ofc Vst, Est Level III 12:57:33 [employer] Mili Gautam, DO, FACP CPT-32965 Ofc Vst, Est Level IV 13:36:51 [employer] Mili Gautam, DO, FACP CPT-41785 Ofc Vst, Est Level III 13:13:04 [employer] Mili Gautam, DO, FACP CPT-64590 Ofc Vst, Est Level III 14:17:29 CDT Mili Gautam, DO, FACP CPT-12825 Ofc Vst, Est Level III 16:26:29 CDT Mili Gautam, DO, FACP CPT-43130 Ofc Vst, Est Level III 15:16:40 CDT Mili Metz Gautam, DO, FACP CPT-19383 Ofc Vst, Est Level III 12:01:38 CDT Mili Metz Gautam, DO, FACP CPT-96728 Ofc Vst, Est Level III 19:36:46 [employer] Mili Metz Gautam, DO, FACP CPT-54912 Ofc Vst, Est Level III 15:45:49 [employer] Mili Metz Gautam, DO, FACP CPT-68047 Ofc Vst, Est Level IV 14:05:12 CDT Mili Metz Lotus, DO, FACP CPT-48440 Ofc Vst, Est Level IV 11:38:35 [employer] Mili Metz Lotus, DO, FACP CPT-15886 Ofc Vst, Est Level IV 12:15:39 [employer] Mili Metz Lotus, DO, FACP CPT-86023 Ofc Vst, Est Level IV 10:49:39 CDT Mili Metz Lotus, DO, FACP CPT-53349 Ofc Vst, Est Level III 11:12:31 CDT Mili Metz Lotus, DO, FACP CPT-45458 Ofc Vst, Est Level IV 11:24:11 CDT Miligt Metz Lotus, DO, FACP CPT-83014 Ofc Vst, Est Level IV 10:56:53 [employer] Mili Metz Lotus, DO, FACP CPT-35942 Ofc Vst, Est Level IV 10:23:39 CDT Mili Metz Lotus, DO, FACP CPT-77792 Ofc Vst, Est Level IV 13:45:21 CDT Miligt Metz Lotus, DO, FACP CPT-11832 Ofc Vst, Est Level III 14:30:43 CDT Miligt [facility] CPT-54440 Ofc Vst, Est Level IV 10:27:11 [employer] Miligt Metz Lotus, DO, FACP CPT-47295 Ofc Vst, Est Level IV 10:00:49 CDT Mili Malka Metz Lotus, DO, FACP CPT-93535 Ofc Vst, Est Level III 16:29:04 CDT Miligt Metz Lotus, DO, FACP CPT-39642 Ofc Vst, Est Level IV 10:17:09 CDT Miligt Metz Lotus, DO, FACP CPT-26135 Ofc Vst, Est Level IV 09:20:45 [employer] Miligt Metz Lotus, DO, FACP CPT-99496 Ofc Vst, Est Level IV 10:24:24 CDT Miligt Metz Lotus, DO, FACP CPT-42406 Ofc Vst, Est Level III 13:19:51 CDT Miligt Metz Lotus, DO, FACP CPT-55242 Ofc Vst, Est Level IV 16:20:29 CDT Miligt Metz Lotus, DO, FACP CPT-04881 Ofc Vst, Est Level IV 10:16:23 CDT Miligt Metz Lotus, DO, FACP CPT-48473 Ofc Vst, Est Level IV 10:30:07 [employer] Mili Metz Lotus, DO, FACP CPT-83548 Ofc Vst, Est Level III 10:40:49 CDT Mili Malka Metz Lotus, DO, FACP CPT-71297 Ofc Vst, Est Level III 10:16:25 CDT Miligt Gautam, DO, FACP CPT-54076 Ofc Vst, Est Level III 10:25:50 CDT Mili Malka Gautam, DO, FACP CPT-39809 Ofc Vst, Est Level IV 10:39:21 CDT Miligt Gautam [facility] [place] CPT-94085 Ofc Vst, Est Level IV 16:03:05 CDT Mili Malka Gautam [facility] [place] CPT-02767 Ofc Vst, Est Level III 14:54:11 [employer] Mili Gautam [facility] [place] CPT-61712 Ofc Vst, Est Level III 15:34:35 CDT Miligt Gautam [facility] [place] CPT-06955 Ofc Vst, Est Level IV 10:31:02 CDT Mili Malka Gautam [facility] [place] CPT-11241 Ofc Vst, Est Level III 11:13:15 CDT Miligt Gautam [facility] [place] CPT-97999 Ofc Vst, Est Level IV 10:12:47 CDT Miligt Gautam [facility] [place] CPT-60886 Ofc Vst, Est Level III 15:47:34 [employer] Mili Gautam [facility] [place] CPT-81546 Ofc Vst, Est Level IV 11:06:54 [employer] Mili Gautam [facility] [place] CPT-91464 Ofc Vst, Est Level IV 10:42:38 CDT Miligt Gautam [facility] [place] CPT-21775 Ofc Vst, Est Level IV 11:22:18 CDT Miligt Gautam [facility] [place] CPT-70250 Ofc Vst, Est Level IV 15:48:16 CDT Mili Malka Gautam [facility] [place] CPT-17230 Ofc Vst, Est Level IV 13:08:33 CDT Mili Gautam [facility] [place] CPT-82096 Ofc Vst, Est Level III 13:21:55 [employer] Mili Gautam [facility] [place] CPT-01455 Ofc Vst, Est Level IV 13:13:53 [employer] Mili Gautam [facility] [place] CPT-57631 Ofc Vst, Est Level III 17:49:28 [employer] Mili Gautam [facility] [place] CPT-83553 Ofc Vst, Est Level IV 17:29:41 [employer] Mili Gautam [facility] [place] CPT-67904 Ofc Vst, Est Level IV 13:09:45 [employer] Mili Gautam [facility] [place] CPT-56726 Ofc Vst, Est Level IV 19:10:11 CDT Mili Gautam [facility] [place] CPT-04577 Ofc Vst, New Level IV 18:05:12 CDT Mili Gautam [facility] [place] Procedures Code Procedure Name Date Entry Date Standard Description CPT-G0439 Medicare Annual Wellness Visit 14:05:26 CDT CPT-G8446 E-Prescribing not done due to controlled substance 14:15 :29 [employer] CPT-G8443 E-Prescribing Medication Sent 12:57:33 [employer] CPT-G8445 E-Prescribing Not sent due to no medication given 13:36: 51 [employer] CPT-G8443 E-Prescribing Medication Sent 13:13:04 [employer] CPT-G8443 E-Prescribing Medication Sent 14:17:29 CDT CPT-G8443 E-Prescribing Medication Sent 16:26:29 CDT CPT-G8445 E-Prescribing Not sent due to no medication given 15:16: 40 CDT CPT-G8445 E-Prescribing Not sent due to no medication given 12:01: 38 CDT CPT-G8445 E-Prescribing Not sent due to no medication given 19:36: 46 [employer] CPT-G8443 E-Prescribing Medication Sent 15:45:49 [employer] CPT-G8443 E-Prescribing Medication Sent 15:32:38 CDT CPT-G0438 Medicare Annual Wellness Visit Initial 15:32:38 CDT CPT-G8446 E-Prescribing not done due to controlled substance 16:29 :04 CDT CPT-G8443 E-Prescribing Medication Sent 10:17:09 CDT CPT-49964 Injection, Pneumovax 10:24:24 CDT CPT-99179 Excision of Benign Lesion 2.1-3.0 cm 10:32:03 CDT 09/22 CPT-67308 Excision of Malignant lesion 2.1-3.0 cm 16:12:48 CDT
--- OUTSIDE RECORDS SUMMARY | 2017-09-22 09:01 | XMS REPORT | Clinical Summary ---
Author Author User, MARA Organization [facility] Address Unknown Phone Allergies, Adverse Reactions, Alerts Allergy Name Reaction Description Start Date Severity Status Provider PREDNISONE Dermatological problems, e.g., rash, hives Critical No Longer Active Mili Gautam NORVASC Edema Critical No Longer Active iMli Gautam ERYTHROMYCIN Critical Active Mili Gautam Conditions [...] TABS 1 PO DAILY PRN SWELLING FUROSEMIDE 61078256846 Active Alexus Patel DIFLUCAN 100 MG TAB 1 PO daily for 3 days FLUCONAZOLE 20570710556 No Longer Active Alexus Patel PROAIR HFA 108 (90 BASE) MCG/ACT AERS 2 puff Q4 hrs prn wheezing ALBUTEROL SULFATE 74408779575 No Longer Active Mili Gautam SINGULAIR 10 MG TABS 1 PO QHS MONTELUKAST SODIUM 75784085642 No Longer Active Mili Gautam ZOSTAVAX 34025 UNT/0.65ML SOLR 1 injection once to prevent Shingles ZOSTER VACCINE LIVE 14668979736 No Longer Active Mili Gautam MOBIC 15 MG TABS 1 PO daily MELOXICAM 14656752618 Active Lyly Zheng BACTRIM DS 800-160 MG TAB 1 PO BID TRIMETHOPRIM- SULFAMETHOXAZOLE 39839608469 No Longer Active Mili Gautam AUGMENTIN 500-125 MG TAB 1 PO BID AMOXICILLIN-POT CLAVULANATE 81348583241 No Longer Active Mili Gautam TERAZOL 7 0.4 % CREA 1 applicator full per vagina QHS for 7 days TERCONAZOLE VAGINAL 91770099768 No Longer Active Mili Gautam ANUSOL-HC 2.5 % CREAM apply to affected area TID prn HYDROCORTISONE (RECTAL) 01149610313 Active Mili Gautam AUGMENTIN 500-125 MG TAB 1 PO BID AMOXICILLIN-POT CLAVULANATE 76349281183 No Longer Active Alexus Patel PYRIDIUM 200 MG TAB 1 PO TID prn urinary urgency PHENAZOPYRIDINE HCL 08791969751 No Longer Active Alexus Patel CIPRO 250 MG TABS 1 PO BID CIPROFLOXACIN HCL 09855269820 No Longer Active Alexus Patel ANUSOL-HC 25 MG SUPPOSITORY 1 AL TID prn HYDROCORTISONE NATALIE ( RECTAL) 41803465427 No Longer Active Mili Gautam ANUSOL-HC 2.5 % CREAM as directed HYDROCORTISONE (RECTAL) 33401666863 No Longer Active Mili Gautam ADVAIR DISKUS 250-50 MCG/DOSE MISC 1 Puff BID FLUTICASONE-SALMETEROL 40215790134 No Longer Active Miligt Gautam LASIX 40 MG TABS 1 PO daily prn for swelling FUROSEMIDE 00447382296 No Longer Active Miligt Gautam CEFDINIR 300 MG CAPS 1 PO BID CEFDINIR 35213153366 No Longer Active Mili WALDROP'S NASAL SPRAY (DEXAMETHASONE, GENTAMICIN, SALINE) 2 puffs each nostril TID for [address] WALDROP'Lashay NASAL SPRAY ( DEXAMETHASONE, GENTAMICIN, SALINE) No Longer Active Miligt Gautam PREMARIN 0.625 MG/GM CREA apply 2 inch ribbon outside the urethra once night a week ESTROGENS, CONJUGATED VAGINAL 33731837190 No Longer Active Mili Gautam BACTROBAN 2 % CREAM Apply to affected area TID. MUPIROCIN CALCIUM 08868421611 No Longer Active Mili Gautam NYSTATIN 955906 UNIT/GM CREA apply to affected areas TID for 7 days NYSTATIN 13401125505 No Longer Active Mili Gautam FLAGYL 500 MG TABS 1 PO TID METRONIDAZOLE 42971991940 No Longer Active Miligt Gautam LEVAQUIN 500 MG TAB 1 PO QD LEVOFLOXACIN 24045462349 No Longer Active Miligt Gautam FLAGYL 500 MG TABS 1 PO TID METRONIDAZOLE 97834741211 No Longer Active Mili Malka Gautam LEVAQUIN 500 MG TAB 1 PO QD LEVOFLOXACIN 41968717026 No Longer Active Miligt Gautam LAMISIL 250 MG TABS 1 PO daily TERBINAFINE HCL 86405235515 No Longer Active Mili Malka Gautam PYRIDIUM 200 MG TAB 1 PO TID prn urinary urgency PHENAZOPYRIDINE HCL 38905503177 No Longer Active Mili Gautam FISH OIL 1000 MG CAPS 2 PO QD OMEGA-3 FATTY ACIDS 64131026613 Active Miligt Gautam ESTRACE 1 MG TABS 1 PO daily ESTRADIOL 76334183109 Active Alexus Patel CEPHALEXIN 500 MG CAPS 1 po TID x 5 days CEPHALEXIN 14326799392 No Longer Active Mili Malka Gautam PYRIDIUM 200 MG TAB 1 PO TID prn urinary urgency PHENAZOPYRIDINE HCL 55680991558 No Longer Active Dorina Armond MIRALAX POWD 1 scoop in 1/2 cup water every 3 hrs prn constipation. POLYETHYLENE GLYCOL 3350 49220597912 No Longer Active Mili Gautam PYRIDIUM 200 MG TABS 1 po TID x 3 days PHENAZOPYRIDINE HCL 45022173436 No Longer Active Alexus Patel AUGMENTIN 500-125 MG TAB 1 PO BID x 7 days AMOXICILLIN-POT CLAVULANATE 06170379372 No Longer Active Mili Gautam SYNTHROID 0.05 MG TAB 1 PO daily on empty stomach LEVOTHYROXINE SODIUM 32938996115 Active Alexus Patel ROBITUSSIN A-C 10-100 MG/5ML SYRUP 1 teaspoon PO Q 4-6 hr prn ROBITUSSIN A-C 10-100 MG/5ML SYRUP No Longer Active Mili WALDROP'S NASAL SPRAY (DEXAMETHASONE, GENTAMICIN, SALINE) 2 puffs each nostril TID for [address] PANDEY NASAL SPRAY ( DEXAMETHASONE, GENTAMICIN, SALINE) No Longer Active Mili Gautam CIPRO 500 MG TAB 1 PO BID for 7 days CIPROFLOXACIN HCL 24820357020 No Longer Active Mili Malka Gautam TABS 1 PO BID prn for nervous stomach PHENOBARBITAL-BELLADONNA ALK 60290793426 No Longer Active Mili Malka Gautam AUGMENTIN 875-125 MG TAB 1 PO BID AMOXICILLIN-POT CLAVULANATE 92771844343 No Longer Active Mili Malka Gautam TESSALON 200 MG CAPS 1 PO TID prn cough BENZONATATE 61546255514 No Longer Active Mili Malka Gautam ALEVE 220 MG TABS 1 PO BID NAPROXEN SODIUM 85799873758 No Longer Active Miligt WALDROP'Lashay NASAL SPRAY (DEXAMETHASONE, GENTAMICIN, SALINE) 2 puffs each nostril TID for [address] WALDROP'Lashay NASAL SPRAY ( DEXAMETHASONE, GENTAMICIN, SALINE) No Longer Active Mili Gautam CIPRO 500 MG TABS 1 PO BID CIPROFLOXACIN HCL 42543925906 No Longer Active Mili Gautam PYRIDIUM 200 MG TAB 1 PO TID prn urinary urgency PHENAZOPYRIDINE HCL 57361933561 No Longer Active Chacorta Wylie AUGMENTIN 500-125 MG TAB 1 PO BID AMOXICILLIN-POT CLAVULANATE 83069140039 No Longer Active Chacorta Wylie IBUPROFEN 400 MG TABS 1 po TID IBUPROFEN 29434939040 No Longer Active Miligt Gautam VITAMIN D 1000 UNIT TABS 1 PO Daily CHOLECALCIFEROL 74669060130 Active Mili Malka Gautam PYRIDIUM 200 MG TABS 1 po TID x 3 days PHENAZOPYRIDINE HCL 65080954873 No Longer Active Alexus Patel MACROBID 100 MG CAPS 1 po BID x 7 days NITROFURANTOIN MONOHYD MACRO 25127243912 No Longer Active Alexus Patel CRANBERRY 300 MG TABS 1 PO daily CRANBERRY 91140348702 No Longer Active Mili Malka Gautam BACTROBAN 2 % OINT Apply QID prn MUPIROCIN 82643257428 No Longer Active Mili Malka Gautam CEPHALEXIN 500 MG TABS 1 po QID x 10 days CEPHALEXIN 18149183247 No Longer Active Mili Malka Gautam NAPROXEN 500 MG TABS ! PO Q6hrs prn NAPROXEN 65477227655 No Longer Active Mili Malka Gautam VITAMIN B-12 1000 MCG TABS 1 po daily CYANOCOBALAMIN 67872992887 No Longer Active Mili Malka Gautam GINKOBA 40 MG TABS 1 PO daily GINKGO BILOBA 97999759885 No Longer Active Mili Malka Gautam PROMETHAZINE HCL 25 MG TABS 1 PO Q6hrs prn nausea PROMETHAZINE HCL 61738909455 No Longer Active Mili Malka Gautam PYRIDIUM 200 MG TAB 1 PO TID for 3 days PHENAZOPYRIDINE HCL 40471288000 No Longer Active Mili Malka Gautam PRAVACHOL 20 MG TABS 1 po daily PRAVASTATIN SODIUM 58614650446 Active Alexuscandelaria Patel PYRIDIUM 200 MG TAB 1 PO TID PHENAZOPYRIDINE HCL 44405173689 No Longer Active Mili Malka Gautam AUGMENTIN 500-125 MG TAB 1 PO BID AMOXICILLIN-POT CLAVULANATE 72801258678 No Longer Active Mili Malka Gautam AUGMENTIN 500-125 MG TAB 1 PO BID AMOXICILLIN-POT CLAVULANATE 96675639950 No Longer Active Mili Malka Gautam BACTRIM DS 800-160 MG TAB 1 po BID for 7 days TRIMETHOPRIM-SULFAMETHOXAZOLE 67373612976 No Longer Active Zahraa PANDEY NASAL SPRAY (DEXAMETHASONE, GENTAMICIN, SALINE) 2 puffs each nostril TID DR. PANDEY NASAL SPRAY (DEXAMETHASONE, GENTAMICIN, SALINE) No Longer Active Mili Gautam AUGMENTIN 500-125 MG TAB 1 PO BID AMOXICILLIN-POT CLAVULANATE 41510827068 No Longer Active Mili Gautam MUCINEX 600 MG TB12 1 po BID GUAIFENESIN 46761464995 No Longer Active Mili Gautam MUCINEX 600 MG TB12 1 PO BID for 7 days GUAIFENESIN 68305112903 No Longer Active Mili Gautam AUGMENTIN 875-125 MG TAB 1 PO BID AMOXICILLIN-POT CLAVULANATE 24990490175 No Longer Active Mili PANDEY NASAL SPRAY (DEXAMETHASONE, GENTAMICIN, SALINE) 2 puffs each nostril TID for [address] PANDEY NASAL SPRAY ( DEXAMETHASONE, GENTAMICIN, SALINE) No Longer Active Alexus Patel DOXYCYCLINE HYCLATE 100 MG CAP 1 po BID for 7 days DOXYCYCLINE HYCLATE 76439786753 No Longer Active Alexus Patel DECADRON/GARAMYCIN NASAL SPRAY 1 spray BID prn from Dr Waldrop 2005 DECADRON/GARAMYCIN NASAL SPRAY No Longer Active Mili PANDEY NASAL SPRAY (DEXAMETHASONE, GENTAMICIN, SALINE) 2 puffs each nostril TID for [address] PANDEY NASAL SPRAY ( DEXAMETHASONE, GENTAMICIN, SALINE) No Longer Active Mili Gautam AUGMENTIN 875-125 MG TAB 1 PO BID for 7 days AMOXICILLIN-POT CLAVULANATE 76113719562 No Longer Active Mili Gautam GARLIC 500 MG CAPS 1 PO daily GARLIC 14959527534 Active Mili Malka Gautam VALIUM 2 MG TAB 1 PO Q6hrs prn DIAZEPAM 53999197666 No Longer Active Mili Malka Gautam KENALOG 0.1 % CREA apply to affected areas on skin BID for 7 days TRIAMCINOLONE ACETONIDE 42548745437 No Longer Active Mili Malka Gautam DOXYCYCLINE HYCLATE 100 MG CAPS 1 PO BID DOXYCYCLINE HYCLATE 37782299705 No Longer Active Mili Malka Gautam HYDROCHLOROTHIAZIDE 12.5 MG CAPS 1 PO QD HYDROCHLOROTHIAZIDE 43934340865 Active Alexus Patel DIOVAN 320 MG TABS 1 PO daily for BP VALSARTAN 60291999330 Active Alexus Patel K-DUR 20 MEQ TAB CR 1 PO QOD POTASSIUM CHLORIDE 18135710245 No Longer Active Mili Malka Gautam ZYRTEC 10 MG TABS 1 po daily prn CETIRIZINE HCL 48234899257 Active Mili Malka Gautam XANAX 0.25 MG TABS 1 po q 6 hrs. prn ALPRAZOLAM 02744770537 Active Mili Malka Gautam LASIX 40 MG TAB 1 PO QOD FUROSEMIDE 30832872832 No Longer Active Mili Malka Gautam NORVASC 10 MG TAB 1 PO QD AMLODIPINE BESYLATE 25541817780 No Longer Active Mili Malka Gautam DIOVAN HCT 160-12.5 MG TABS 2 PO QD VALSARTAN- HYDROCHLOROTHIAZIDE 02539709092 No Longer Active Crystal LaGalle PAXIL CR 12.5 MG TB24 1 PO QD PAROXETINE HCL 52804437952 No Longer Active Mili Malka Gautam CORICIDIN HBP FLU 15-500-2 MG TABS 1 PO Q12hrs DM- APAP-CPM 07443887293 No Longer Active Mili Malka Gautam XANAX 0.25 MG TABS 1 every 4-6hrs scheduled ALPRAZOLAM 04044120213 No Longer Active Mili Malka Gautam PREMARIN 1.25 MG TABS 1 PO QD ESTROGENS CONJUGATED 98104361824 No Longer Active Alexus Patel CENESTIN 1.25 MG TABS 1 po daily ESTROGENS CONJ SYNTHETIC A 05715273858 No Longer Active Mili Malka Gautam BUSPAR 5 MG TABS 1/2 - 1 tab PO QD prn BUSPIRONE HCL 24212244665 No Longer Active Mili Malka Gautam BACTRIM DS 800-160 MG TAB 1 PO BID TRIMETHOPRIM- SULFAMETHOXAZOLE 14179219287 No Longer Active Miligt Gautam LIPITOR 10 MG TABS 1/2 po daily ATORVASTATIN CALCIUM 11607151308 No Longer Active Chrissy Piva ASPIRIN 81 MG TABS 1 PO QD ASPIRIN 14877868080 Active Miligt Gautam CITRACAL + D 250-62.5 MG-IU TABS 1 po daily CALCIUM CITRATE-VITAMIN D 16962104496 Active Miligt Gautam MULTIVITAMINS TABS 1 po daily MULTIPLE VITAMIN 44260278710 Active Miligt Gautam KLOR-CON M10 10 MEQ TBCR 1 po daily POTASSIUM CHLORIDE CK CR 16518239471 Active Alexus Patel NADOLOL 40 MG TABS 1 po daily NADOLOL 43629699485 Active Alexus Patel Immunizations Vaccine Administration Date [...] Estimated Glomerular Filtration Rate (calc) 70 mL/min/1.73m2 Estimated Glomerular Filtration Rate (calc) 69 mL/min/1.73m2 glucose, plasma fasting 95 mg/dL glucose, plasma fasting 101 mg/dL cholesterol/HDL ratio, serum, percent 4.4 cholesterol/HDL ratio, serum, percent 4.2 anion gap, serum 10 anion gap, serum 13 sodium, serum 137 mmol/L sodium, serum 137 mmol/L triglyceride, serum, fasting 238 mg/dL triglyceride, serum, fasting 216 mg/dL bilirubin, serum, total 0.6 mg/dL bilirubin, serum, total 0.6 mg/dL alanine aminotransferase (SGPT), serum 12 U/L alanine aminotransferase (SGPT), serum 11 U/L aspartate aminotransferase (SGOT), serum 16 U/L aspartate aminotransferase (SGOT), serum 16 U/L protein, total, serum 6.2 g/dL protein, total, serum 6.2 g/dL potassium, serum 4.1 mmol/L potassium, serum 4.5 mmol/L LDL cholesterol, serum 106 mg/dL LDL cholesterol, serum 102 mg/dL thyroid stimulating hormone, serum 2.58 u[iU]/mL thyroid stimulating hormone, serum 2.70 u[iU]/mL HDL cholesterol, serum 45.0 mg/dL HDL cholesterol, serum 46.0 mg/dL thyroxine, serum, free 1.04 ng/dL thyroxine, serum, free 0.94 ng/dL creatinine, serum 0.9 mg/dL creatinine, serum 0.9 mg/dL carbon dioxide, venous blood 29.0 mmol/L carbon dioxide, venous blood 29.0 mmol/L cholesterol, serum 199 mg/dL cholesterol, serum 191 mg/dL chloride, serum 102 mmol/L chloride, serum 100 mmol/L calcium, serum 9.3 mg/dL calcium, serum 9.2 mg/dL urea nitrogen, blood 16 mg/dL urea nitrogen, blood 17 mg/dL alkaline phosphatase, serum 53 U/L alkaline phosphatase, serum 46 U/L albumin, serum 4.1 g/dL albumin, serum 4.2 g/dL Clinical Lists Update: UA - Urinalysis [...] None Encounters Code Encounter Date Provider Facility CPT-99631 Ofc Vst, Est Level III 13:26:46 JESIKA Gautam DO, FACP CPT-96930 Ofc Vst, Est Level III 17:39:31 [facility] Mili Metz Lotus, DO, FACP CPT-83772 Ofc Vst, Est Level III 15:09:46 [facility] CPT-55427 Ofc Vst, Est Level III 17:42:49 [facility] OPERATOR Mili Metz Gautam, DO, FACP CPT-90455 Ofc Vst, Est Level III 14:15:29 BRO[facility] OPERATOR Mili Metz Gautam, DO, FACP CPT-65443 Ofc Vst, Est Level III 12:57:33 [facility] OPERATOR Mili Metz Lotus, DO, FACP CPT-06935 Ofc Vst, Est Level IV 13:36:51 [facility] OPERATOR Mili Metz Lotus, DO, FACP CPT-43535 Ofc Vst, Est Level III 13:13:04 [facility] OPERATOR Mili Metz Lotus, DO, FACP CPT-09850 Ofc Vst, Est Level III 14:17:29 CDT Mili Metz Lotus, DO, FACP CPT-09834 Ofc Vst, Est Level III 16:26:29 CDT Mili Metz Lotus, DO, FACP CPT-12912 Ofc Vst, Est Level III 15:16:40 CDT Miligt Metz Lotus, DO, FACP CPT-91577 Ofc Vst, Est Level III 12:01:38 CDT Mili Metz Gautam, DO, FACP CPT-31846 Ofc Vst, Est Level III 19:36:46 [facility] OPERATOR Mili Metz Lotus, DO, FACP CPT-30085 Ofc Vst, Est Level III 15:45:49 BRO[facility] OPERATOR Mili Garces S Lotus, DO, FACP CPT-77549 Ofc Vst, Est Level IV 14:05:12 CDT Mili Malka Metz Lotus, DO, FACP CPT-04374 Ofc Vst, Est Level IV 11:38:35 BROACH OPERATOR Mili Metz Lotus, DO, FACP CPT-96334 Ofc Vst, Est Level IV 12:15:39 BROACH OPERATOR Miligt Metz Lotus, DO, FACP CPT-57488 Ofc Vst, Est Level IV 10:49:39 CDT Mili Malka Metz Lotus, DO, FACP CPT-21712 Ofc Vst, Est Level III 11:12:31 CDT Miligt Metz Lotus, DO, FACP CPT-29345 Ofc Vst, Est Level IV 11:24:11 CDT Mili Malka Metz Lotus, DO, FACP CPT-54217 Ofc Vst, Est Level IV 10:56:53 BRO[facility] OPERATOR Mili Metz Lotus, DO, FACP CPT-94896 Ofc Vst, Est Level IV 10:23:39 CDT Miligt Metz Lotus, DO, FACP CPT-25603 Ofc Vst, Est Level IV 13:45:21 CDT Mili Malka Metz Lotus, DO, FACP CPT-19483 Ofc Vst, Est Level III 14:30:43 CDT Miligt Gautam [facility] CPT-12263 Ofc Vst, Est Level IV 10:27:11 BROACH OPERATOR Mili Metz Lotus, DO, FACP CPT-16271 Ofc Vst, Est Level IV 10:00:49 CDT Mili Malka Metz Lotus, DO, FACP CPT-12051 Ofc Vst, Est Level III 16:29:04 CDT Mili Malka Metz Gautam, DO, FACP CPT-04844 Ofc Vst, Est Level IV 10:17:09 CDT Mili Malka Metz Gautam, DO, FACP CPT-26083 Ofc Vst, Est Level IV 09:20:45 BROACH OPERATOR Mili Malka Metz Gautam, DO, FACP CPT-89915 Ofc Vst, Est Level IV 10:24:24 CDT Mili Malka Metz Gautam, DO, FACP CPT-63887 Ofc Vst, Est Level III 13:19:51 CDT Mili Malka Metz Gautam, DO, FACP CPT-95561 Ofc Vst, Est Level IV 16:20:29 CDT Mili Malka Metz Gautam, DO, FACP CPT-62122 Ofc Vst, Est Level IV 10:16:23 CDT Mili Malka Metz Gautam, DO, FACP CPT-45218 Ofc Vst, Est Level IV 10:30:07 BROACH OPERATOR Mili Metz Gautam, DO, FACP CPT-87920 Ofc Vst, Est Level III 10:40:49 CDT Mili Malka Metz Gautam, DO, FACP CPT-75356 Ofc Vst, Est Level III 10:16:25 CDT Mili Malka Metz Gautam, DO, FACP CPT-32632 Ofc Vst, Est Level III 10:25:50 CDT Mili Malka Metz Gautam, DO, FACP CPT-10683 Ofc Vst, Est Level IV 10:39:21 CDT Mili Malka Gautam [facility] CPT-78792 Ofc Vst, Est Level IV 16:03:05 CDT Mili Gautam [facility] CPT-47720 Ofc Vst, Est Level III 14:54:11 BROACH OPERATOR Mili Gautam [facility] CPT-45087 Ofc Vst, Est Level III 15:34:35 CDT Mili Gautam [facility] CPT-23542 Ofc Vst, Est Level IV 10:31:02 CDT Mili Malka Gautam [facility] CPT-42632 Ofc Vst, Est Level III 11:13:15 CDT Mili Malka Gautam [facility] CPT-15148 Ofc Vst, Est Level IV 10:12:47 CDT Mili Malka Gautam [facility] CPT-27957 Ofc Vst, Est Level III 15:47:34 BROACH OPERATOR Mili Gautam [facility] CPT-19828 Ofc Vst, Est Level IV 11:06:54 BROACH OPERATOR Mili Gautam [facility] CPT-76164 Ofc Vst, Est Level IV 10:42:38 CDT Mili Malka Gautam [facility] CPT-66673 Ofc Vst, Est Level IV 11:22:18 CDT Mili Gautam [facility] CPT-29037 Ofc Vst, Est Level IV 15:48:16 CDT Mili Gautam [facility] CPT-90225 Ofc Vst, Est Level IV 13:08:33 CDT Mili Gautam [facility] CPT-51856 Ofc Vst, Est Level III 13:21:55 BROACH OPERATOR Mili Gautam [facility] CPT-24157 Ofc Vst, Est Level IV 13:13:53 BROACH OPERATOR Mili Gautam [facility] CPT-24717 Ofc Vst, Est Level III 17:49:28 BROACH OPERATOR Mili Gautam [facility] CPT-86615 Ofc Vst, Est Level IV 17:29:41 BROACH OPERATOR Miligt Gautam [facility] CPT-28193 Ofc Vst, Est Level IV 13:09:45 BROACH OPERATOR Mili Flanagane Lotus [facility] CPT-04892 Ofc Vst, Est Level IV 19:10:11 CDT Mili Malka Lotus [facility] CPT-95617 Ofc Vst, New Level IV 18:05:12 CDT Mili Gautam [facility] Procedures Code Procedure Name Date Entry Date Standard Description CPT-G0439 Medicare Annual Wellness Visit 14:05:26 CDT CPT-G8446 E-Prescribing not done due to controlled substance 14:15 :29 BROACH OPERATOR CPT-G8443 E-Prescribing Medication Sent 12:57:33 BROACH OPERATOR CPT-G8445 E-Prescribing Not sent due to no medication given 13:36: 51 BROACH OPERATOR CPT-G8443 E-Prescribing Medication Sent 13:13:04 BROACH OPERATOR CPT-G8443 E-Prescribing Medication Sent 14:17:29 CDT CPT-G8443 E-Prescribing Medication Sent 16:26:29 CDT CPT-G8445 E-Prescribing Not sent due to no medication given 15:16: 40 CDT CPT-G8445 E-Prescribing Not sent due to no medication given 12:01: 38 CDT CPT-G8445 E-Prescribing Not sent due to no medication given 19:36: 46 BROACH OPERATOR CPT-G8443 E-Prescribing Medication Sent 15:45:49 BROACH OPERATOR CPT-G8443 E-Prescribing Medication Sent 15:32:38 CDT CPT-G0438 Medicare Annual Wellness Visit Initial 15:32:38 CDT CPT-G8446 E-Prescribing not done due to controlled substance 16:29 :04 CDT CPT-G8443 E-Prescribing Medication Sent 10:17:09 CDT CPT-80831 Injection, Pneumovax 10:24:24 CDT CPT-37670 Excision of Benign Lesion 2.1-3.0 cm 10:32:03 CDT 09/22 CPT-84843 Excision of Malignant lesion 2.1-3.0 cm 16:12:48 CDT
--- OUTSIDE RECORDS SUMMARY | 2017-09-22 09:02 | XMS REPORT | Clinical Summary ---
Author Author User, MARA Organization [facility] Address Unknown Phone Allergies, Adverse Reactions, [...] TABS 1 PO DAILY PRN SWELLING FUROSEMIDE 81008850759 Active Alexus Patel DIFLUCAN 100 MG TAB 1 PO daily for 3 days FLUCONAZOLE 65432029522 No Longer Active Alexus Patel PROAIR HFA 108 (90 BASE) MCG/ACT AERS 2 puff Q4 hrs prn wheezing ALBUTEROL SULFATE 12125545297 No Longer Active Mili Gautam SINGULAIR 10 MG TABS 1 PO QHS MONTELUKAST SODIUM 95470273080 No Longer Active Mili Gautam ZOSTAVAX 85425 UNT/0.65ML SOLR 1 injection once to prevent Shingles ZOSTER VACCINE LIVE 57700665288 No Longer Active Mili Gautam MOBIC 15 MG TABS 1 PO daily MELOXICAM 95218377213 Active Alexus Patel BACTRIM DS 800-160 MG TAB 1 PO BID TRIMETHOPRIM- SULFAMETHOXAZOLE 63240297431 No Longer Active Mili Gautam AUGMENTIN 500-125 MG TAB 1 PO BID AMOXICILLIN-POT CLAVULANATE 64727967885 No Longer Active Mili Gautam TERAZOL 7 0.4 % CREA 1 applicator full per vagina QHS for 7 days TERCONAZOLE VAGINAL 63822874322 No Longer Active Mili Gautam ANUSOL-HC 2.5 % CREAM apply to affected area TID prn HYDROCORTISONE (RECTAL) 45591177301 Active Mili Gautam AUGMENTIN 500-125 MG TAB 1 PO BID AMOXICILLIN-POT CLAVULANATE 92952479706 No Longer Active Alexus Patel PYRIDIUM 200 MG TAB 1 PO TID prn urinary urgency PHENAZOPYRIDINE HCL 17192060771 No Longer Active Alexus Patel CIPRO 250 MG TABS 1 PO BID CIPROFLOXACIN HCL 44230627202 No Longer Active Alexus Patel ANUSOL-HC 25 MG SUPPOSITORY 1 DC TID prn HYDROCORTISONE NATALIE ( RECTAL) 50090062656 No Longer Active Mili Gautam ANUSOL-HC 2.5 % CREAM as directed HYDROCORTISONE (RECTAL) 26968524488 No Longer Active Miligt Gautam ADVAIR DISKUS 250-50 MCG/DOSE MISC 1 Puff BID FLUTICASONE-SALMETEROL 87998500032 No Longer Active Mili Malka Gautam LASIX 40 MG TABS 1 PO daily prn for swelling FUROSEMIDE 96278185129 No Longer Active Mili Malka Gautam CEFDINIR 300 MG CAPS 1 PO BID CEFDINIR 10898951381 No Longer Active Miligt WALDROP'S NASAL SPRAY (DEXAMETHASONE, GENTAMICIN, SALINE) 2 puffs each nostril TID for [address] WALDROP'Lashay NASAL SPRAY ( DEXAMETHASONE, GENTAMICIN, SALINE) No Longer Active Miligt Gautam PREMARIN 0.625 MG/GM CREA apply 2 inch ribbon outside the urethra once night a week ESTROGENS, CONJUGATED VAGINAL 08755316447 No Longer Active Miligt Gautam BACTROBAN 2 % CREAM Apply to affected area TID. MUPIROCIN CALCIUM 09798619781 No Longer Active Miligt Gautam NYSTATIN 081505 UNIT/GM CREA apply to affected areas TID for 7 days NYSTATIN 52834352017 No Longer Active Miligt Gautam FLAGYL 500 MG TABS 1 PO TID METRONIDAZOLE 91683324393 No Longer Active Miligt Gautam LEVAQUIN 500 MG TAB 1 PO QD LEVOFLOXACIN 41263745187 No Longer Active Mili Malka Gautam FLAGYL 500 MG TABS 1 PO TID METRONIDAZOLE 19192446456 No Longer Active Mili Malka Gautam LEVAQUIN 500 MG TAB 1 PO QD LEVOFLOXACIN 54584752875 No Longer Active Mili Malka Gautam LAMISIL 250 MG TABS 1 PO daily TERBINAFINE HCL 26897863698 No Longer Active Mili Malka Gautam PYRIDIUM 200 MG TAB 1 PO TID prn urinary urgency PHENAZOPYRIDINE HCL 87076909341 No Longer Active Miligt Gautam FISH OIL 1000 MG CAPS 2 PO QD OMEGA-3 FATTY ACIDS 30170188153 Active Mili Gautam ESTRACE 1 MG TABS 1 PO daily ESTRADIOL 38593756420 Active Nicola Macias CEPHALEXIN 500 MG CAPS 1 po TID x 5 days CEPHALEXIN 22434929219 No Longer Active Mili Malka Gautam PYRIDIUM 200 MG TAB 1 PO TID prn urinary urgency PHENAZOPYRIDINE HCL 10234716442 No Longer Active Dorina Armond MIRALAX POWD 1 scoop in 1/2 cup water every 3 hrs prn constipation. POLYETHYLENE GLYCOL 3350 12775800573 No Longer Active Miligt Gautam PYRIDIUM 200 MG TABS 1 po TID x 3 days PHENAZOPYRIDINE HCL 46685005767 No Longer Active Alexus Patel AUGMENTIN 500-125 MG TAB 1 PO BID x 7 days AMOXICILLIN-POT CLAVULANATE 43477356393 No Longer Active Mili Gautam SYNTHROID 0.05 MG TAB 1 PO daily on empty stomach LEVOTHYROXINE SODIUM 91194739203 Active Alexus Patel ROBITUSSIN A-C 10-100 MG/5ML SYRUP 1 teaspoon PO Q 4-6 hr prn ROBITUSSIN A-C 10-100 MG/5ML SYRUP No Longer Active Mili WALDROP'S NASAL SPRAY (DEXAMETHASONE, GENTAMICIN, SALINE) 2 puffs each nostril TID for [address] PANDEY NASAL SPRAY ( DEXAMETHASONE, GENTAMICIN, SALINE) No Longer Active Mili Gautam CIPRO 500 MG TAB 1 PO BID for 7 days CIPROFLOXACIN HCL 58242223358 No Longer Active Mili Gautam TABS 1 PO BID prn for nervous stomach PHENOBARBITAL-BELLADONNA ALK 51071374390 No Longer Active Mili Gautam AUGMENTIN 875-125 MG TAB 1 PO BID AMOXICILLIN-POT CLAVULANATE 63959604890 No Longer Active Miligt Gautam TESSALON 200 MG CAPS 1 PO TID prn cough BENZONATATE 96370391983 No Longer Active Mili Gautam ALEVE 220 MG TABS 1 PO BID NAPROXEN SODIUM 60770400379 No Longer Active Mili WALDROP'Lashay NASAL SPRAY (DEXAMETHASONE, GENTAMICIN, SALINE) 2 puffs each nostril TID for [address] WALDROP'Lashay NASAL SPRAY ( DEXAMETHASONE, GENTAMICIN, SALINE) No Longer Active Mili Gautam CIPRO 500 MG TABS 1 PO BID CIPROFLOXACIN HCL 79890948116 No Longer Active Mili Gautam PYRIDIUM 200 MG TAB 1 PO TID prn urinary urgency PHENAZOPYRIDINE HCL 67430462327 No Longer Active Chacorta Wylie AUGMENTIN 500-125 MG TAB 1 PO BID AMOXICILLIN-POT CLAVULANATE 61146036190 No Longer Active Chacorta Wylie IBUPROFEN 400 MG TABS 1 po TID IBUPROFEN 87998992145 No Longer Active Mili Gautam VITAMIN D 1000 UNIT TABS 1 PO Daily CHOLECALCIFEROL 51848394655 Active Miligt Gautam PYRIDIUM 200 MG TABS 1 po TID x 3 days PHENAZOPYRIDINE HCL 58918494746 No Longer Active Alexus Patel MACROBID 100 MG CAPS 1 po BID x 7 days NITROFURANTOIN MONOHYD MACRO 06239136100 No Longer Active Alexus Patel CRANBERRY 300 MG TABS 1 PO daily CRANBERRY 48359462384 No Longer Active Mili Malka Gautam BACTROBAN 2 % OINT Apply QID prn MUPIROCIN 95221768350 No Longer Active Mili Malka Gautam CEPHALEXIN 500 MG TABS 1 po QID x 10 days CEPHALEXIN 63018060839 No Longer Active Mili Malka Gautam NAPROXEN 500 MG TABS ! PO Q6hrs prn NAPROXEN 69408553195 No Longer Active Mili Malka Gautam VITAMIN B-12 1000 MCG TABS 1 po daily CYANOCOBALAMIN 83870838589 No Longer Active Mili Malka Gautam GINKOBA 40 MG TABS 1 PO daily GINKGO BILOBA 45541021571 No Longer Active Mili Malka Gautam PROMETHAZINE HCL 25 MG TABS 1 PO Q6hrs prn nausea PROMETHAZINE HCL 60752386502 No Longer Active Mili Malka Gautam PYRIDIUM 200 MG TAB 1 PO TID for 3 days PHENAZOPYRIDINE HCL 62427077245 No Longer Active Mili Malka Gautam PRAVACHOL 20 MG TABS 1 po daily PRAVASTATIN SODIUM 96338896389 Active Nicola Macias PYRIDIUM 200 MG TAB 1 PO TID PHENAZOPYRIDINE HCL 85011233025 No Longer Active Mili Malka Gautam AUGMENTIN 500-125 MG TAB 1 PO BID AMOXICILLIN-POT CLAVULANATE 82505619345 No Longer Active Mili Malka Gautam AUGMENTIN 500-125 MG TAB 1 PO BID AMOXICILLIN-POT CLAVULANATE 25101531096 No Longer Active Mili Malka Gautam BACTRIM DS 800-160 MG TAB 1 po BID for 7 days TRIMETHOPRIM-SULFAMETHOXAZOLE 19432951688 No Longer Active Zahraa PANDEY NASAL SPRAY (DEXAMETHASONE, GENTAMICIN, SALINE) 2 puffs each nostril TID DR. PANDEY NASAL SPRAY (DEXAMETHASONE, GENTAMICIN, SALINE) No Longer Active Mili Gautam AUGMENTIN 500-125 MG TAB 1 PO BID AMOXICILLIN-POT CLAVULANATE 00185950930 No Longer Active Mili Gautam MUCINEX 600 MG TB12 1 po BID GUAIFENESIN 36068759855 No Longer Active Mili Gautam MUCINEX 600 MG TB12 1 PO BID for 7 days GUAIFENESIN 42947576192 No Longer Active Mili Gautam AUGMENTIN 875-125 MG TAB 1 PO BID AMOXICILLIN-POT CLAVULANATE 35302300535 No Longer Active Mili PANDEY NASAL SPRAY (DEXAMETHASONE, GENTAMICIN, SALINE) 2 puffs each nostril TID for [address] PANDEY NASAL SPRAY ( DEXAMETHASONE, GENTAMICIN, SALINE) No Longer Active Alexus Patel DOXYCYCLINE HYCLATE 100 MG CAP 1 po BID for 7 days DOXYCYCLINE HYCLATE 36171007965 No Longer Active Alexus Patel DECADRON/GARAMYCIN NASAL SPRAY 1 spray BID prn from Dr Waldrop 2005 DECADRON/GARAMYCIN NASAL SPRAY No Longer Active Mili PANDEY NASAL SPRAY (DEXAMETHASONE, GENTAMICIN, SALINE) 2 puffs each nostril TID for [address] PANDEY NASAL SPRAY ( DEXAMETHASONE, GENTAMICIN, SALINE) No Longer Active Mili Gautam AUGMENTIN 875-125 MG TAB 1 PO BID for 7 days AMOXICILLIN-POT CLAVULANATE 97796261823 No Longer Active Mili Gautam GARLIC 500 MG CAPS 1 PO daily GARLIC 97569239379 Active Mili Malka Gautam VALIUM 2 MG TAB 1 PO Q6hrs prn DIAZEPAM 49381052578 No Longer Active Mili Malka Gautam KENALOG 0.1 % CREA apply to affected areas on skin BID for 7 days TRIAMCINOLONE ACETONIDE 70792213416 No Longer Active Mili Malka Gautam DOXYCYCLINE HYCLATE 100 MG CAPS 1 PO BID DOXYCYCLINE HYCLATE 22202701026 No Longer Active Mili Malka Gautam HYDROCHLOROTHIAZIDE 12.5 MG CAPS 1 PO QD HYDROCHLOROTHIAZIDE 04346867636 Active Nicola Macias DIOVAN 320 MG TABS 1 PO daily for BP VALSARTAN 91957463033 Active Nicola Macias K-DUR 20 MEQ TAB CR 1 PO QOD POTASSIUM CHLORIDE 05897137014 No Longer Active Mili Malka Gautam ZYRTEC 10 MG TABS 1 po daily prn CETIRIZINE HCL 83484650168 Active Mili Malka Gautam XANAX 0.25 MG TABS 1 po q 6 hrs. prn ALPRAZOLAM 98498988262 Active Mili Malka Gautam LASIX 40 MG TAB 1 PO QOD FUROSEMIDE 52594994549 No Longer Active Mili Malka Gautam NORVASC 10 MG TAB 1 PO QD AMLODIPINE BESYLATE 11981080472 No Longer Active Mili Malka Gautam DIOVAN HCT 160-12.5 MG TABS 2 PO QD VALSARTAN- HYDROCHLOROTHIAZIDE 73719683152 No Longer Active Crystal LaGalle PAXIL CR 12.5 MG TB24 1 PO QD PAROXETINE HCL 66513048238 No Longer Active Mili Malka Gautam CORICIDIN HBP FLU 15-500-2 MG TABS 1 PO Q12hrs DM- APAP-CPM 42342231362 No Longer Active Mili Malka Gautam XANAX 0.25 MG TABS 1 every 4-6hrs scheduled ALPRAZOLAM 86735545155 No Longer Active Mili Malka Gautam PREMARIN 1.25 MG TABS 1 PO QD ESTROGENS CONJUGATED 96812883347 No Longer Active Alexus Patel CENESTIN 1.25 MG TABS 1 po daily ESTROGENS CONJ SYNTHETIC A 20279219112 No Longer Active Mili Malka Gautam BUSPAR 5 MG TABS 1/2 - 1 tab PO QD prn BUSPIRONE HCL 03767456308 No Longer Active Mili Malka Gautam BACTRIM DS 800-160 MG TAB 1 PO BID TRIMETHOPRIM- SULFAMETHOXAZOLE 09488297525 No Longer Active Miligt Gautam LIPITOR 10 MG TABS 1/2 po daily ATORVASTATIN CALCIUM 09487765875 No Longer Active Chrissy Piva ASPIRIN 81 MG TABS 1 PO QD ASPIRIN 88724994522 Active Miligt Gautam CITRACAL + D 250-62.5 MG-IU TABS 1 po daily CALCIUM CITRATE-VITAMIN D 32270632548 Active Mili Malka Gautam MULTIVITAMINS TABS 1 po daily MULTIPLE VITAMIN 42021893267 Active Miligt Gautam KLOR-CON M10 10 MEQ TBCR 1 po daily POTASSIUM CHLORIDE CK CR 77814328287 Active Nicola Macias NADOLOL 40 MG TABS 1 po daily NADOLOL 49940942733 Active Nicola Macias Immunizations Vaccine Administration Date [...] None Encounters Code Encounter Date Provider Facility CPT-79698 Ofc Vst, Est Level III 13:26:46 CDT Mili Gautam DO, FACP CPT-03402 Ofc Vst, Est Level III 17:39:31 FINGERPRINTER Mili Gautam DO, FACP CPT-75260 Ofc Vst, Est Level III 15:09:46 [facility]PRINTER Mili Gautam [facility] CPT-92417 Ofc Vst, Est Level III 17:42:49 [employer]ING[facility]PRINTER Mili Gautam DO, FACP CPT-02336 Ofc Vst, Est Level III 14:15:29 FINGERPRINTER Mili Gautam, DO, FACP CPT-50911 Ofc Vst, Est Level III 12:57:33 FINGERPRINTER Mili Gautam, DO, FACP CPT-70186 Ofc Vst, Est Level IV 13:36:51 [employer]INGERPRINTER Mili Gautam, DO, FACP CPT-79295 Ofc Vst, Est Level III 13:13:04 FINGERPRINTER Mili Gautam, DO, FACP CPT-82396 Ofc Vst, Est Level III 14:17:29 CDT Mili Gautam, DO, FACP CPT-57572 Ofc Vst, Est Level III 16:26:29 CDT Mili Gautam, DO, FACP CPT-16158 Ofc Vst, Est Level III 15:16:40 CDT Mili Metz Gautam, DO, FACP CPT-97142 Ofc Vst, Est Level III 12:01:38 CDT Mili Metz Gautam, DO, FACP CPT-44164 Ofc Vst, Est Level III 19:36:46 FINGERPRINTER Mili Metz Gautam, DO, FACP CPT-94401 Ofc Vst, Est Level III 15:45:49 FINGERPRINTER Mili Metz Gautam, DO, FACP CPT-21311 Ofc Vst, Est Level IV 14:05:12 CDT Mili Metz Lotus, DO, FACP CPT-91167 Ofc Vst, Est Level IV 11:38:35 FINGERPRINTER Mili Metz Lotus, DO, FACP CPT-30417 Ofc Vst, Est Level IV 12:15:39 FINGERPRINTER Mili Metz Lotus, DO, FACP CPT-28564 Ofc Vst, Est Level IV 10:49:39 CDT Mili Metz Lotus, DO, FACP CPT-83767 Ofc Vst, Est Level III 11:12:31 CDT Mili Metz Lotus, DO, FACP CPT-28947 Ofc Vst, Est Level IV 11:24:11 CDT Miligt Metz Lotus, DO, FACP CPT-87894 Ofc Vst, Est Level IV 10:56:53 FINGERPRINTER Mili Metz Lotus, DO, FACP CPT-87932 Ofc Vst, Est Level IV 10:23:39 CDT Mili Metz Lotus, DO, FACP CPT-02118 Ofc Vst, Est Level IV 13:45:21 CDT Miligt Metz Lotus, DO, FACP CPT-14222 Ofc Vst, Est Level III 14:30:43 CDT Miligt [facility] CPT-43413 Ofc Vst, Est Level IV 10:27:11 FINGERPRINTER Miligt Metz Lotus, DO, FACP CPT-66770 Ofc Vst, Est Level IV 10:00:49 CDT Mili Malka Metz Lotus, DO, FACP CPT-64694 Ofc Vst, Est Level III 16:29:04 CDT Miligt Metz Lotus, DO, FACP CPT-15033 Ofc Vst, Est Level IV 10:17:09 CDT Miligt Metz Lotus, DO, FACP CPT-42013 Ofc Vst, Est Level IV 09:20:45 FINGERPRINTER Miligt Metz Lotus, DO, FACP CPT-27166 Ofc Vst, Est Level IV 10:24:24 CDT Miligt eMtz Lotus, DO, FACP CPT-47505 Ofc Vst, Est Level III 13:19:51 CDT Miligt Metz Lotus, DO, FACP CPT-58663 Ofc Vst, Est Level IV 16:20:29 CDT Miligt Metz Lotus, DO, FACP CPT-09707 Ofc Vst, Est Level IV 10:16:23 CDT Miligt Metz Lotus, DO, FACP CPT-24573 Ofc Vst, Est Level IV 10:30:07 FINGERPRINTER Mili Metz Lotus, DO, FACP CPT-88641 Ofc Vst, Est Level III 10:40:49 CDT Mili Malka Metz Lotus, DO, FACP CPT-50376 Ofc Vst, Est Level III 10:16:25 CDT Miligt Gautam, DO, FACP CPT-32333 Ofc Vst, Est Level III 10:25:50 CDT Mili Malka Gautam, DO, FACP CPT-71568 Ofc Vst, Est Level IV 10:39:21 CDT Miligt Gautam [facility] [place] CPT-55791 Ofc Vst, Est Level IV 16:03:05 CDT Mili Malka Gautam [facility] [place] CPT-16894 Ofc Vst, Est Level III 14:54:11 FINGERPRINTER Mili Gautam [facility] [place] CPT-47812 Ofc Vst, Est Level III 15:34:35 CDT Miligt Gautam [facility] [place] CPT-84765 Ofc Vst, Est Level IV 10:31:02 CDT Mili Malka Gautam [facility] [place] CPT-77083 Ofc Vst, Est Level III 11:13:15 CDT Miligt Gautam [facility] [place] CPT-98847 Ofc Vst, Est Level IV 10:12:47 CDT Miligt Gautam [facility] [place] CPT-30054 Ofc Vst, Est Level III 15:47:34 FINGERPRINTER Mili Gautam [facility] [place] CPT-90575 Ofc Vst, Est Level IV 11:06:54 FINGERPRINTER Mili Gautam [facility] [place] CPT-31864 Ofc Vst, Est Level IV 10:42:38 CDT Miligt Gauatm [facility] [place] CPT-45468 Ofc Vst, Est Level IV 11:22:18 CDT Miligt Gautam [facility] [place] CPT-37931 Ofc Vst, Est Level IV 15:48:16 CDT Mili Malka Gautam [facility] [place] CPT-29792 Ofc Vst, Est Level IV 13:08:33 CDT Mili Gautam [facility] [place] CPT-94079 Ofc Vst, Est Level III 13:21:55 FINGERPRINTER Mili Gautam [facility] [place] CPT-38136 Ofc Vst, Est Level IV 13:13:53 FINGERPRINTER Mili Gautam [facility] [place] CPT-25111 Ofc Vst, Est Level III 17:49:28 FINGERPRINTER Mili Gautam [facility] [place] CPT-26469 Ofc Vst, Est Level IV 17:29:41 FINGERPRINTER Mili Gautam [facility] [place] CPT-97790 Ofc Vst, Est Level IV 13:09:45 FINGERPRINTER Mili Gautam [facility] [place] CPT-92300 Ofc Vst, Est Level IV 19:10:11 CDT Mili Gautam [facility] [place] CPT-13871 Ofc Vst, New Level IV 18:05:12 CDT Mili Gautam [facility] [place] Procedures Code Procedure Name Date Entry Date Standard Description CPT-G0439 Medicare Annual Wellness Visit 14:05:26 CDT CPT-G8446 E-Prescribing not done due to controlled substance 14:15 :29 FINGERPRINTER CPT-G8443 E-Prescribing Medication Sent 12:57:33 FINGERPRINTER CPT-G8445 E-Prescribing Not sent due to no medication given 13:36: 51 FINGERPRINTER CPT-G8443 E-Prescribing Medication Sent 13:13:04 FINGERPRINTER CPT-G8443 E-Prescribing Medication Sent 14:17:29 CDT CPT-G8443 E-Prescribing Medication Sent 16:26:29 CDT CPT-G8445 E-Prescribing Not sent due to no medication given 15:16: 40 CDT CPT-G8445 E-Prescribing Not sent due to no medication given 12:01: 38 CDT CPT-G8445 E-Prescribing Not sent due to no medication given 19:36: 46 FINGERPRINTER CPT-G8443 E-Prescribing Medication Sent 15:45:49 FINGERPRINTER CPT-G8443 E-Prescribing Medication Sent 15:32:38 CDT CPT-G0438 Medicare Annual Wellness Visit Initial 15:32:38 CDT CPT-G8446 E-Prescribing not done due to controlled substance 16:29 :04 CDT CPT-G8443 E-Prescribing Medication Sent 10:17:09 CDT CPT-06167 Injection, Pneumovax 10:24:24 CDT CPT-10938 Excision of Benign Lesion 2.1-3.0 cm 10:32:03 CDT 09/22 CPT-23500 Excision of Malignant lesion 2.1-3.0 cm 16:12:48 CDT
[2017-09-22] MEDS ORDERED: METO-352 PO (09:05)
[2017-09-22] MEDS ORDERED: NS IV 1000 ML 1,000 ML IV ONE (09:08)
[2017-09-22 09:24] LABS: BASOPHILS # (AUTO) 0.1 10^3/uL (0.0-0.1); BASOPHILS % (AUTO) 0 % (0-10); EOSINOPHILS # (AUTO) 0.2 10^3/uL (0.0-0.3); EOSINOPHILS % (AUTO) 2 % (0-10); HEMATOCRIT 35 % (35-52); HEMOGLOBIN 11.6 G/DL (11.5-16.0); LYMPHOCYTES # (AUTO) 8.6 X 10^3 (1.0-4.0); LYMPHOCYTES % (AUTO) 69 % (12-44); MEAN CORPUSCULAR HEMOGLOBIN 32 PG (25-34); MEAN CORPUSCULAR HGB CONC 33 G/DL (32-36); MEAN CORPUSCULAR VOLUME 96 FL (80-99); MEAN PLATELET VOLUME 10.8 FL (7.4-10.4); MONOCYTES # (AUTO) 0.5 X 10^3 (0.0-1.0); MONOCYTES % (AUTO) 4 % (0-12); NEUTROPHILS # (AUTO) 3.1 X 10^3 (1.8-7.8); NEUTROPHILS % (AUTO) 25 % (42-75); PLATELET COUNT 142 10^3/uL (130-400); RED BLOOD COUNT 3.66 10^6/uL (4.35-5.85); RED CELL DISTRIBUTION WIDTH 13.6 % (10.0-14.5); WHITE BLOOD COUNT 12.5 10^3/uL (4.3-11.0)
--- NOTE | 2017-09-22 09:34 | ED General ---
General Chief Complaint: Cough/Cold/Flu Symptoms Stated Complaint: COUGH Nursing Triage Note: PT REPORTS COUGH/COLD/SINUS PRESSURE AND SORE THROAT X 1 MONTH. REPORTS SHE HAS SEEN DR CASTAÑEDA ABOUT 2 WEEKS AGO AND PRESCRIBED AUGMENTIN. PT REPORTS SHE CALLED A WEEK AGO AND DR PRESCRIBED NASAL SPRAY BUT PT REPORTS SHE IS NOT FEELING BETTER. Nursing Sepsis Screen: No Definite Risk Source of Information: Patient, Old Records Exam Limitations: No Limitations History of Present Illness Date Seen by Provider: September 22, 2017 Time Seen by Provider: 08:59 Initial Comments This 76-year-old woman presents to the emergency room with complaints of sinus drainage, cough, and dyspnea. She reports having symptoms of sore throat and drainage about one month ago and she was treated with Augmentin for sinusitis and bronchitis. She was later prescribed a nasal steroid spray for additional treatment of the drainage and she has been using that for the past 6 days. As of last night her throat began to hurt again, drainage worsened, and she developed sore throat and cough. She denies fever. She is notably hypertensive and tachycardic upon arrival. She has not yet taken her blood pressure medication today. She also notes that she has low-grade non-Hodgkin's lymphoma. Allergies and Home Medications Allergies Coded Allergies: erythromycin base (Verified Allergy, Unknown, HIVES, 07/25/15) Home Medications Alprazolam 0.25 Mg Tablet, 0.25 MG PO DAILY PRN for ANXIETY, (Reported) Aspirin 81 Mg Tablet., 81 MG PO HS, (Reported) Cefdinir 300 Mg Capsule, 300 MG PO BID Prescribed by: VIKASH FRACNO on 09/22/17 1206 Cholecalciferol (Vitamin D3) 2,000 Unit Tablet, 2,000 UNIT PO DAILY, (Reported) Estradiol 1 Mg Tablet, 1 MG PO DAILY, (Reported) Furosemide 20 Mg Tablet, 20 MG PO DAILY PRN for swelling, (Reported) Garlic 400 Mg Tablet., 400 MG PO HS, (Reported) Hydrochlorothiazide 12.5 Mg Cap, 12.5 MG PO DAILY, (Reported) Hydrocodone/Acetaminophen 1 Each Tablet, 1-2 EACH PO Q6H Prescribed by: WILFREDO YEN on 07/28/15 0942 Levothyroxine Sodium 50 Mcg Tablet, 50 MCG PO every other day, (Reported) alternate with 75mcg tab Levothyroxine Sodium 75 Mcg Tablet, 75 MCG PO every other day, (Reported) alternate between 50 mcg tab Meloxicam 15 Mg Tablet, 15 MG PO BID PRN for MUSCLE SPASMS, (Reported) Metoprolol Succinate 50 Mg Tab.er.24h, 50 MG PO DAILY, (Reported) Multivitamins-Min/FA/Ginkgo 1 Each Tablet, 1 EACH PO DAILY, (Reported) [place]-3 Fatty Acids/Fish Oil 1 Each Capsule, 1,000 MG PO HS, (Reported) Oxymetazoline HCl 30 Ml [place], 2 SPRAYS NSEACH BID PRN for CONGESTION Limit use to 3 days only Prescribed by: VIKASH FRANCO on 09/22/17 1206 Potassium Chloride 10 Meq Tablet.sa, 10 MEQ PO DAILY, (Reported) Pravastatin Sodium 20 Mg Tablet, 20 MG PO HS, (Reported) Valsartan 320 Mg Tablet, 320 MG PO DAILY, (Reported) Patient Home Medication List Home Medication List Reviewed: Yes Review of Systems Constitutional: no symptoms reported EENTM: see HPI Respiratory: see HPI Cardiovascular: see HPI Gastrointestinal: no symptoms reported Genitourinary: no symptoms reported : No Musculoskeletal: no symptoms reported Skin: no symptoms reported Psychiatric/Neurological: No Symptoms Reported Hematologic/Lymphatic: See HPI Immunological/Allergic: see HPI Past Zloedhx-Zeneru-Raklet Hx Patient Social History Alcohol Use: Denies Use Recreational Drug Use: No Smoking Status: Never a Smoker Recent Foreign Travel: No Contact w/Someone Who Travel: No Recent Infectious Disease Expo: No Recent Hopitalizations: Yes Physical Abuse: No Sexual Abuse: No Mistreated: No Fear: No Immunizations Up To Date Tetanus Booster (TDap): More than 5yrs Date of Pneumonia Vaccine: Jan 27, 2015 Date of Influenza Vaccine: Jan 27, 2015 Past Medical History Surgeries: Yes ( back x3, RIGHT SHOULDER SURGERY, LYMPH MODE REMOVED FROM L AXILLA) Eye Surgery, Hysterectomy, Tonsillectomy Respiratory: Yes Chronic Bronchitis Cardiac: Yes High Cholesterol, Hypertension Neurological: No : No Reproductive Disorders: No Female Reproductive Disorders: Denies Sexually Transmitted Disease: No HIV/AIDS: No Genitourinary: No Bladder Infection, UTI-Chronic Gastrointestinal: Yes Diverticulosis Musculoskeletal: Yes (left knee pain) Degenerate Disk Disease, Arthritis, Chronic Back Pain Endocrine: Yes Hypothyroidsim Cataract Loss of Vision: Denies Hearing Impairment: Denies Cancer: Yes Lymphoma (low-grade non-Hodgkin's lymphoma) Psychosocial: No Anxiety Nursing Suicide Risk Score: 0 Integumentary: Yes (lesion on nose) Blood Disorders: No Family Medical History Cancer 09 SISTER (OVARIAN CANCER) DAUGHTER (CLL) Cataract 03 MOTHER Chest pain 03 FATHER (FATHER HAD [place]) Congestive heart failure 03 FATHER (CHF) Family history: Allergy Family history: Alzheimer's disease SON DAUGHTER Family history: Arthritis DAUGHTER Family history: Asthma SON Family history: Glaucoma 03 MOTHER Family history: Hypertension DAUGHTER Family history: Thyroid disorder DAUGHTER Heart disease 03 FATHER Hypercholesterolemia 03 MOTHER Kidney disease 09 BROTHER Myocardial infarction 03 FATHER Tuberculosis DAUGHTER (DAUGHTER HAD POSITIVE SKIN TEST) No Family History of: Abdominal aortic aneurysm Golden's disease Alcoholism Aphasia Cancer of colon Congenital heart disease Cystic fibrosis Dementia Dysphagia Family history: Breast disease Family history: Cardiovascular disease Family history: Coronary thrombosis Family history: Diabetes mellitus Family history: Gastrointestinal disease Family history: Osteoporosis Headache Hearing loss Hereditary disease History of - anemia History of - disorder History of - respiratory disease History of drug abuse Human immunodeficiency virus (HIV) seropositivity Infertile Malignant neoplasm of lung Parkinson's disease Prostate cancer Psychotic disorder Seizure disorder Stroke Visual impairment No Pertinent Family Hx Physical Exam Vital Signs Vital Signs - First Documented 09/22/17 08:54 Temp 97.8 Pulse 105 Resp 20 B/P (MAP) 205/97 (133) Pulse Ox 95 O2 Delivery Room Air Capillary Refill : Less Than 3 Seconds General Appearance: No Apparent Distress, WD/WN HEENT: PERRL/EOMI, TMs Normal, Other (mild pharyngeal edema) Neck: Normal Inspection, Supple Respiratory: No Accessory Muscle Use, No Respiratory Distress, Rhonci, Wheezing (Wheeze with forced expiration) Cardiovascular: No Edema, No Murmur, Tachycardia Gastrointestinal: Normal Bowel Sounds, Non Tender, Soft Extremity: Non Tender, Pedal Edema (equal bilaterally and stated as unchanged from chronic) Neurologic/Psychiatric: Alert, Oriented x3, No Motor/Sensory Deficits, Normal Mood/Affect, medical asst II-XII Norm as Tested Skin: Normal Color, Warm/Dry Progress/Results/Core Measures Suspected Sepsis Recent Fever Within 48 Hours: No Infection Criteria Present: None New/Unexplained Altered Menta: No Sepsis Screen: No Definite Risk SIRS Temperature:97.8 Pulse: 105 Respiratory Rate: 20 Laboratory Tests 09/22/17 09:17: White Blood Count 12.5H Blood Pressure 205 /97 Mean: 133 Laboratory Tests 09/22/17 09:17: Creatinine 0.82, Platelet Count 142, Total Bilirubin 0.4 Results/Orders Lab Results Laboratory Tests Test 09/22/17 09:17 Range/Units White Blood Count 12.5 H 4.3-11.0 10^3/uL Red Blood Count 3.66 L 4.35-5.85 10^6/uL Hemoglobin 11.6 11.5-16.0 G/DL Hematocrit 35 35-52 % Mean Corpuscular Volume 96 80-99 FL Mean Corpuscular Hemoglobin 32 25-34 PG Mean Corpuscular Hemoglobin Concent 33 32-36 G/DL Red Cell Distribution Width 13.6 10.0-14.5 % Platelet Count 142 130-400 10^3/uL Mean Platelet Volume 10.8 H 7.4-10.4 FL Neutrophils (%) (Auto) 25 L 42-75 % Lymphocytes (%) (Auto) 69 H 12-44 % Monocytes (%) (Auto) 4 0-12 % Eosinophils (%) (Auto) 2 0-10 % Basophils (%) (Auto) 0 0-10 % Neutrophils # (Auto) 3.1 1.8-7.8 X 10^3 Lymphocytes # (Auto) 8.6 H 1.0-4.0 X 10^3 Monocytes # (Auto) 0.5 0.0-1.0 X 10^3 Eosinophils # (Auto) 0.2 0.0-0.3 10^3/uL Basophils # (Auto) 0.1 0.0-0.1 10^3/uL Sodium Level 142 135-145 MMOL/L Potassium Level 4.2 3.6-5.0 MMOL/L Chloride Level 109 H 98-107 MMOL/L Carbon Dioxide Level 22 21-32 MMOL/L Anion Gap 11 5-14 MMOL/L Blood Urea Nitrogen 21 H 7-18 MG/DL Creatinine 0.82 0.60-1.30 MG/DL Estimat Glomerular Filtration Rate > 60 BUN/Creatinine Ratio 26 Glucose Level 94 70-105 MG/DL Calcium Level 9.3 8.5-10.1 MG/DL Total Bilirubin 0.4 0.1-1.0 MG/DL Aspartate Amino Transf (AST/SGOT) 48 H 5-34 U/L Alanine Aminotransferase (ALT/SGPT) 47 0-55 U/L Alkaline Phosphatase 56 40-136 U/L B-Type Natriuretic Peptide 39.8 <100.0 PG/ML Total Protein 6.5 6.4-8.2 GM/DL Albumin 4.0 3.2-4.5 GM/DL Thyroid Stimulating Hormone (TSH) 2.53 0.35-4.94 UIU/ML Free Thyroxine 1.15 0.70-1.48 NG/DL My Orders Orders - VIKASH ARCE MD BNP (09/22/17 09:08) Cbc With Automated Diff (09/22/17 09:08) Comprehensive Metabolic Panel (09/22/17 09:08) Chest Pa/Lat (2 View) (09/22/17 09:08) Saline Lock/Iv-Start (09/22/17 09:08) Ns Iv 1000 Ml (Sodium Chloride 0.9%) (09/22/17 09:08) Thyroid Stimulating Hormone (09/22/17 09:11) Free T4 (Free Thyroxine) (09/22/17 09:11) Rx-Albuterol Inhaler (Rx-Proair) (09/22/17 10:28) Rt Request For Service (09/22/17 10:28) Medications Given in ED Current Medications Medications Dose Ordered Sig/Tim Route Start Time Stop Time Status Last Admin Dose Admin Sodium Chloride 1,000 ml @ 0 mls/hr Q0M ONCE IV 09/22/17 09:08 09/22/17 09:11 DC 09/22/17 09:34 0 MLS/HR Vital Signs/I&O 09/22/17 09/22/17 09/22/17 09/22/17 08:54 08:54 10:44 11:04 Temp 97.8 Pulse 105 82 Resp 20 20 B/P (MAP) 205/97 (133) 175/73 Pulse Ox 95 99 99 O2 Delivery Room Air Room Air Capillary Refill : Less Than 3 Seconds Blood Pressure Mean: 133 Progress Note : Progress Note Workup was relatively unremarkable. Patient was hydrated with a 1 L normal saline bolus which improved her tachycardia. She was found to have wheeze on forced expiratory exam. She was given an inhaler with a spacer and respiratory therapy provided education on proper use. Another round of antibiotics was prescribed for a longer duration to treat suspected sinusitis. I also recommended a short-term course of Afrin for 3 days to help with her congestion. She is to monitor her blood pressure closely while on the Afrin. She has not taken her blood pressure medications yet today and was instructed to do so when she returns home. See discharge instructions for more details. Diagnostic Imaging Diagonstic Imaging: Xray Plain Films/CT/US/NM/MRI: chest Comments Two-view chest x-ray viewed by me and report reviewed. See report below: NAME: [facility] REC#: [id number] PT STATUS: REG ER : 1940 PHYSICIAN: VIKASH ARCE MD ADMIT DATE: 09/22/17/ER Signed Date of Exam:09/22/17 CHEST PA/LAT (2 VIEW) Indication: Cough. Comparison is made with a prior CT the chest from 06/30/2015. Findings: The lungs are demonstrate no evidence of a focal pulmonary infiltrate and consolidation. There is no effusion. There is no pneumothorax. Heart size and mediastinal contours appear appropriate. Pulmonary vascularity appears within normal limits. No acute or suspicious osseous abnormality demonstrated. There appears to have been prior partial resection of the distal right clavicle. Impression: No radiographic evidence of an acute cardiopulmonary process. Dictated by: Dictated on workstation # [id number] Dict: 09/22/17931 Trans: 09/22/1742 CV [id number] Interpreted by: ZOIE MOSHER MD Electronically signed by: ZOIE MOSHER MD 09/22/17 0942 Departure Impression Primary Impression: Acute recurrent sinusitis Qualified Codes: J01.91 - Acute recurrent sinusitis, unspecified Additional Impressions: Dyspnea Qualified Codes: R06.00 - Dyspnea, unspecified Hypertension Qualified Codes: I10 - Essential (primary) hypertension Hypovolemia Acute bronchitis Qualified Codes: J20.9 - Acute bronchitis, unspecified Disposition: 01 HOME, SELF-CARE Condition: Improved Departure-Patient Inst. Decision time for Depature: 10:10 Referrals: YULIET CASTAÑEDA DO (PCP/Family) Primary Care Physician Patient Instructions: Acute Bronchitis, Adult (DC), Sinusitis in Adults Add. Discharge Instructions: Complete your antibiotics as prescribed. You may continue using the prescription nasal spray as previously prescribed. You may try adding Afrin decongestant nasal spray for 3 days. Although unlikely, it is possible for Afrin to increase blood pressure. Monitor your blood pressure while you take Afrin and discontinue if your blood pressure is elevated above normal. If Afrin is not tolerated or does not work well, consider doing sinus rinses. You may use an [id number] product to facilitate this. If allergies are a problem with symptoms such as runny nose, watery itchy eyes, sneezing, etc., then an antihistamine such as Claritin (loratadine), Zyrtec ( cetirizine), etc. may be helpful. Follow-up with your primary care provider if you do not notice improvement after one week. Take your blood pressure medication when you return home. Follow-up with your primary care provider early next week if blood pressure is not improving. Stay well-hydrated with plenty of clear liquids. Use your inhaler with the spacer chamber when needed for shortness of breath or wheezing. Use no more than 4 puffs in a 4 hour period of time. All discharge instructions reviewed with patient and/or family. Voiced understanding. Scripts Cefdinir (Cefdinir) 300 Mg Capsule 300 MG PO BID, #28 CAP Prov: VIKASH ARCE MD 09/22/17 Oxymetazoline HCl (Afrin) 30 Ml [place] 2 SPRAYS NSEACH BID PRN for CONGESTION, #1 SPRAY Limit use to 3 days only Prov: VIKASH ARCE MD 09/22/17 Copy Copies To 1: YULIET CASTAÑEDA JOSHUA T MD September 22, 2017 09:34
[2017-09-22 09:40] LABS: ALANINE AMINOTRANSFERASE 47 U/L (0-55); ALKALINE PHOSPHATASE 56 U/L (40-136); BILIRUBIN,TOTAL 0.4 MG/DL (0.1-1.0); BUN/CREATININE RATIO 26; CALCIUM 9.3 MG/DL (8.5-10.1); CARBON DIOXIDE 22 MMOL/L (21-32); CHLORIDE 109 MMOL/L (98-107); CREATININE SERUM 0.82 MG/DL (0.60-1.30); GFR ESTIMATED > 60; GLUCOSE 94 MG/DL (70-105); POTASSIUM 4.2 MMOL/L (3.6-5.0); SODIUM 142 MMOL/L (135-145); TOTAL PROTEIN 6.5 GM/DL (6.4-8.2)
[2017-09-22 10:02] LABS: FREE T4 (FREE THYROXINE) 1.15 NG/DL (0.70-1.48)
[2017-09-22] MEDS ORDERED: CEFD300C3 PO ×2 (10:13→12:06)
[2017-09-22] MEDS ORDERED: OXYM30SP NSEACH ×2 (10:13→12:06)
[2017-09-22] MEDS ORDERED: RX-ALBUTEROL INHALER (PROAIR) 8 GM IH STA (10:28)
[2017-09-22 11:04] VITALS: BP 175/73
== END 2017-09-22 11:04 | disposition home or self-care (01) ==
LOC: EDUNIT# 08:44 → ER 08:46
DX: J01.90 Acute sinusitis, unspecified (principal); J20.9 Acute bronchitis, unspecified; I10 Essential (primary) hypertension; E86.1 Hypovolemia; E78.00 Pure hypercholesterolemia, unspecified; E03.9 Hypothyroidism, unspecified; F41.9 Anxiety disorder, unspecified; Z79.82 Long term (current) use of aspirin; Z85.72 Personal history of non-Hodgkin lymphomas; Z90.710 Acquired absence of both cervix and uterus; Z90.89 Acquired absence of other organs; Z88.1 Allergy status to other antibiotic agents; Z80.41 Family history of malignant neoplasm of ovary
CPT/HCPCS: 36415; 71046; 80053; 83880; 84439; 84443; 85025; 94640; 96360

== ENCOUNTER 2017-10-09 13:56 | Outpatient (RCR) | payer MEDICARE, OTHER ==
[2017-07-17 14:28] LABS: BASOPHILS % (AUTO) 0 % (0-10); EOSINOPHILS # (AUTO) 0.1 10^3/uL (0.0-0.3); EOSINOPHILS % (AUTO) 1 % (0-10); HEMATOCRIT 39 % (35-52); HEMOGLOBIN 12.4 G/DL (11.5-16.0); LYMPHOCYTES # (AUTO) 5.8 X 10^3 (1.0-4.0); LYMPHOCYTES % (AUTO) 53 % (12-44); MEAN CORPUSCULAR HEMOGLOBIN 32 PG (25-34); MEAN CORPUSCULAR HGB CONC 32 G/DL (32-36); MEAN CORPUSCULAR VOLUME 99 FL (80-99); MEAN PLATELET VOLUME 10.8 FL (7.4-10.4); MONOCYTES # (AUTO) 0.7 X 10^3 (0.0-1.0); MONOCYTES % (AUTO) 6 % (0-12); NEUTROPHILS # (AUTO) 4.4 X 10^3 (1.8-7.8); NEUTROPHILS % (AUTO) 40 % (42-75); PLATELET COUNT 140 10^3/uL (130-400); RED BLOOD COUNT 3.92 10^6/uL (4.35-5.85); RED CELL DISTRIBUTION WIDTH 13.4 % (10.0-14.5)
[2017-07-17 14:45] LABS: ALBUMIN 4.3 GM/DL (3.2-4.5); BILIRUBIN,TOTAL 0.6 MG/DL (0.1-1.0); CREATININE SERUM 0.91 MG/DL (0.60-1.30); TOTAL PROTEIN 6.7 GM/DL (6.4-8.2)
[~2017-10-09 13:56] MED LIST changes: +METO-352 PO; +OXYM30SP NSEACH
[2017-10-09 14:48] LABS: BASOPHILS % (AUTO) 0 % (0-10); EOSINOPHILS # (AUTO) 0.2 10^3/uL (0.0-0.3); EOSINOPHILS % (AUTO) 3 % (0-10); HEMATOCRIT 37 % (35-52); LYMPHOCYTES # (AUTO) 5.2 X 10^3 (1.0-4.0); LYMPHOCYTES % (AUTO) 56 % (12-44); MEAN CORPUSCULAR HEMOGLOBIN 32 PG (25-34); MEAN CORPUSCULAR HGB CONC 33 G/DL (32-36); MEAN CORPUSCULAR VOLUME 97 FL (80-99); MEAN PLATELET VOLUME 11.2 FL (7.4-10.4); MONOCYTES # (AUTO) 0.6 X 10^3 (0.0-1.0); MONOCYTES % (AUTO) 6 % (0-12); NEUTROPHILS # (AUTO) 3.3 X 10^3 (1.8-7.8); NEUTROPHILS % (AUTO) 35 % (42-75); PLATELET COUNT 141 10^3/uL (130-400); RED BLOOD COUNT 3.79 10^6/uL (4.35-5.85); RED CELL DISTRIBUTION WIDTH 14.1 % (10.0-14.5); WHITE BLOOD COUNT 9.4 10^3/uL (4.3-11.0)
[2017-10-09 15:13] LABS: ALBUMIN 4.1 GM/DL (3.2-4.5); BILIRUBIN,TOTAL 0.4 MG/DL (0.1-1.0); CALCIUM 9.4 MG/DL (8.5-10.1); CREATININE SERUM 0.97 MG/DL (0.60-1.30); POTASSIUM 3.7 MMOL/L (3.6-5.0); TOTAL PROTEIN 6.7 GM/DL (6.4-8.2)
== END 2017-10-15 | disposition home or self-care (01) ==
LOC: ONC 13:56
PROVIDERS: ATTEND Internal Medicine Hematology & Oncology
DX: C83.08 Small cell B-cell lymphoma, lymph nodes of multiple sites (principal); D80.1 Nonfamilial hypogammaglobulinemia; D69.59 Other secondary thrombocytopenia; I10 Essential (primary) hypertension; E03.9 Hypothyroidism, unspecified; E78.00 Pure hypercholesterolemia, unspecified; J42 Unspecified chronic bronchitis; M15.9 Polyosteoarthritis, unspecified; Z79.899 Other long term (current) drug therapy
CPT/HCPCS: 36415; 80053; 83615; 85025; 99213

== ENCOUNTER 2018-04-07 13:57 | Outpatient (RCR) | payer MEDICARE, OTHER ==
[2018-04-07 13:32] LABS: BASOPHILS % (AUTO) 0 % (0-10); EOSINOPHILS # (AUTO) 0.2 10^3/uL (0.0-0.3); EOSINOPHILS % (AUTO) 2 % (0-10); HEMATOCRIT 35 % (35-52); HEMOGLOBIN 11.3 G/DL (11.5-16.0); LYMPHOCYTES # (AUTO) 5.2 X 10^3 (1.0-4.0); LYMPHOCYTES % (AUTO) 51 % (12-44); MEAN CORPUSCULAR HEMOGLOBIN 31 PG (25-34); MEAN CORPUSCULAR HGB CONC 32 G/DL (32-36); MEAN CORPUSCULAR VOLUME 98 FL (80-99); MEAN PLATELET VOLUME 10.7 FL (7.4-10.4); MONOCYTES # (AUTO) 0.6 X 10^3 (0.0-1.0); MONOCYTES % (AUTO) 6 % (0-12); NEUTROPHILS # (AUTO) 4.1 X 10^3 (1.8-7.8); NEUTROPHILS % (AUTO) 40 % (42-75); PLATELET COUNT 133 10^3/uL (130-400); RED CELL DISTRIBUTION WIDTH 13.5 % (10.0-14.5); WHITE BLOOD COUNT 10.2 10^3/uL (4.3-11.0)
[2018-04-07 13:47] LABS: ALBUMIN 4.1 GM/DL (3.2-4.5); BILIRUBIN,TOTAL 0.5 MG/DL (0.1-1.0); CALCIUM 9.6 MG/DL (8.5-10.1); CREATININE SERUM 1.21 MG/DL (0.60-1.30); POTASSIUM 3.9 MMOL/L (3.6-5.0); TOTAL PROTEIN 6.5 GM/DL (6.4-8.2)
== END 2018-07-06 | disposition home or self-care (01) ==
LOC: ONC 13:57
PROVIDERS: ATTEND Internal Medicine Hematology & Oncology
DX: C83.08 Small cell B-cell lymphoma, lymph nodes of multiple sites (principal); D80.1 Nonfamilial hypogammaglobulinemia; D69.59 Other secondary thrombocytopenia; I10 Essential (primary) hypertension; E03.9 Hypothyroidism, unspecified; E78.00 Pure hypercholesterolemia, unspecified; M15.9 Polyosteoarthritis, unspecified; Z79.899 Other long term (current) drug therapy
CPT/HCPCS: 36415; 80053; 83615; 85025; 99213

== ENCOUNTER → 2018-08-07 | Outpatient (CLI) | payer MEDICARE, OTHER ==
[~2018-08-07] VITALS: Ht 167.6 cm; Wt 92.2 kg
[~2018-08-07] MED LIST changes: +AMLODIPINE PO; +NS IV 1000 ML 1,000 ML IV ONE
[2018-08-07 07:09] LABS: BASOPHILS % (AUTO) 1 % (0-10); EOSINOPHILS # (AUTO) 0.1 10^3/uL (0.0-0.3); EOSINOPHILS % (AUTO) 2 % (0-10); HEMATOCRIT 34 % (35-52); HEMOGLOBIN 11.2 G/DL (11.5-16.0); LYMPHOCYTES # (AUTO) 3.6 X 10^3 (1.0-4.0); LYMPHOCYTES % (AUTO) 53 % (12-44); MEAN CORPUSCULAR HEMOGLOBIN 31 PG (25-34); MEAN CORPUSCULAR HGB CONC 33 G/DL (32-36); MEAN CORPUSCULAR VOLUME 94 FL (80-99); MEAN PLATELET VOLUME 11.2 FL (7.4-10.4); MONOCYTES # (AUTO) 0.5 X 10^3 (0.0-1.0); MONOCYTES % (AUTO) 7 % (0-12); NEUTROPHILS # (AUTO) 2.6 X 10^3 (1.8-7.8); NEUTROPHILS % (AUTO) 37 % (42-75); PLATELET COUNT 138 10^3/uL (130-400); RED CELL DISTRIBUTION WIDTH 13.4 % (10.0-14.5); WHITE BLOOD COUNT 6.9 10^3/uL (4.3-11.0)
[2018-08-07 07:28] LABS: ALBUMIN 3.9 GM/DL (3.2-4.5); BILIRUBIN,TOTAL 0.8 MG/DL (0.1-1.0); CALCIUM 9.6 MG/DL (8.5-10.1); CREATININE SERUM 1.43 MG/DL (0.60-1.30); POTASSIUM 3.3 MMOL/L (3.6-5.0); TOTAL PROTEIN 6.4 GM/DL (6.4-8.2)
[2018-08-07 07:38] LABS: ERYTHROCYTE SEDIMENTATION RATE 39 MM/HR (0-30)
[2018-08-07 12:45] VITALS: BP 179/66
[2018-08-07 12:59] LABS: CREATININE SERUM 1.22 MG/DL (0.60-1.30)
== END ==
LOC: RAD 06:45
PROVIDERS: ATTEND Internal Medicine
DX: R10.32 Left lower quadrant pain (principal)
CPT/HCPCS: 36415; 80053; 82150; 82565; 83690; 84520; 85025; 85652; 96360; 96361

== ENCOUNTER → 2018-08-08 | Outpatient (CLI) | payer MEDICARE, OTHER ==
[~2018-08-08] MED LIST changes: -NS IV 1000 ML 1,000 ML IV ONE
--- NOTE | 2018-08-08 12:14 | Diagnostic Imaging Report ---
PROCEDURE: CT abdomen and pelvis with contrast. TECHNIQUE: Multiple contiguous axial images were obtained through the abdomen and pelvis after administration of intravenous contrast. Auto Exposure Controls were utilized during the CT exam to meet ALARA standards for radiation dose reduction. INDICATION: Left lower quadrant pain. COMPARISON: Comparison made with prior examination 06/30/2015. FINDINGS: The heart size is normal. There is minimal scarring or atelectasis in the left lung base. There are few tiny low attenuating lesions in the liver which are too small to accurately characterize however likely reflect cysts. There is no biliary ductal dilatation. Gallbladder appears to be surgically absent. Spleen is normal. The pancreas and adrenal glands are unremarkable. There is prominence of the left renal pelvis. The aorta is nonaneurysmal. Bowel gas pattern is nonspecific. There is some focal mucosal thickening and mild inflammatory change about the upper sigmoid colon suspect for mild diverticulitis. There is no abscess or free air. There is no pelvic mass or adenopathy. There are degenerative changes in the spine. IMPRESSION: 1. Mild uncomplicated diverticulitis of the upper sigmoid colon. 2. Prominent extrarenal pelvis about the left kidney. 3. Tiny low-attenuating lesions in the liver too small to accurately characterize however likely reflect hepatic cysts. Dictated by: Dictated on workstation # [id number]
== END ==
LOC: RAD 08:13
PROVIDERS: ATTEND Internal Medicine
DX: K57.32 Diverticulitis of large intestine without perforation or abscess without bleeding (principal); I10 Essential (primary) hypertension
CPT/HCPCS: 74177

== ENCOUNTER 2018-10-06 10:00 | Outpatient (CLI) | payer MEDICARE, OTHER ==
[~2018-10-06] VITALS: Ht 167.6 cm; Wt 91.2 kg
[~2018-10-06 10:00] MED LIST changes: +AMLO5TAB9 PO; +HYDR-3923 PO; +HYDR25TA4 PO; +LOSA100T57 PO; +POTA10TA10 PO; +PRAV20TA3 PO
== END 2018-10-06 10:45 | disposition home or self-care (01) ==
LOC: PREOP 10:00
PROVIDERS: ATTEND Surgery
DX: Z01.818 Encounter for other preprocedural examination (principal)

== ENCOUNTER 2018-10-15 12:04 | Outpatient (RCR) | payer MEDICARE, OTHER ==
[2018-10-13 14:39] LABS: BASOPHILS % (AUTO) 1 % (0-10); EOSINOPHILS # (AUTO) 0.1 10^3/uL (0.0-0.3); EOSINOPHILS % (AUTO) 1 % (0-10); HEMATOCRIT 35 % (35-52); HEMOGLOBIN 11.3 G/DL (11.5-16.0); LYMPHOCYTES # (AUTO) 4.1 X 10^3 (1.0-4.0); LYMPHOCYTES % (AUTO) 47 % (12-44); MEAN CORPUSCULAR HEMOGLOBIN 31 PG (25-34); MEAN CORPUSCULAR HGB CONC 32 G/DL (32-36); MEAN CORPUSCULAR VOLUME 95 FL (80-99); MEAN PLATELET VOLUME 10.9 FL (7.4-10.4); MONOCYTES # (AUTO) 0.7 X 10^3 (0.0-1.0); MONOCYTES % (AUTO) 8 % (0-12); NEUTROPHILS # (AUTO) 3.8 X 10^3 (1.8-7.8); NEUTROPHILS % (AUTO) 43 % (42-75); PLATELET COUNT 158 10^3/uL (130-400); RED CELL DISTRIBUTION WIDTH 13.5 % (10.0-14.5); WHITE BLOOD COUNT 8.8 10^3/uL (4.3-11.0)
[2018-10-13 14:57] LABS: ALBUMIN 4.1 GM/DL (3.2-4.5); BILIRUBIN,TOTAL 0.4 MG/DL (0.1-1.0); CALCIUM 9.9 MG/DL (8.5-10.1); CREATININE SERUM 1.27 MG/DL (0.60-1.30); POTASSIUM 3.9 MMOL/L (3.6-5.0); TOTAL PROTEIN 6.5 GM/DL (6.4-8.2)
[2018-11-03] MEDS ORDERED: MOME45CR19 TP (06:24)
[2018-11-03] MEDS ORDERED: PRD10T PO (06:24)
[2018-11-03] MEDS ORDERED: HYDR50CA3 PO (06:24)
== END 2019-01-11 | disposition home or self-care (01) ==
LOC: ONC 12:04
PROVIDERS: ATTEND Internal Medicine Hematology & Oncology
DX: C83.08 Small cell B-cell lymphoma, lymph nodes of multiple sites (principal); D80.1 Nonfamilial hypogammaglobulinemia; D69.59 Other secondary thrombocytopenia; I10 Essential (primary) hypertension; E03.9 Hypothyroidism, unspecified; E78.00 Pure hypercholesterolemia, unspecified; M15.9 Polyosteoarthritis, unspecified; Z79.899 Other long term (current) drug therapy
CPT/HCPCS: 36415; 80053; 82784; 83615; 85025; 87324; 87449; 87493; 99213

== ENCOUNTER 2018-11-03 05:33 | Emergency (ER) | payer MEDICARE, OTHER ==
[~2018-11-03] VITALS: Ht 167.6 cm; Wt 91.2 kg
[2018-11-03] MEDS ORDERED: methylPREDNISolone 125 MG (Solu-MEDROL) VIAL IV STA (06:04)
[2018-11-03] MEDS ORDERED: diphenhydrAMINE 50 MG/ML INJ (BENADRYL) IV STA (06:04)
[2018-11-03] MEDS ORDERED: FAMOTIDINE 20MG/2ML IV (PEPCID) IV STA (06:04)
--- NOTE | 2018-11-03 06:18 | ED Integumentary General ---
General Chief Complaint: Allergic Reaction Stated Complaint: HIVES Source: patient History of Present Illness Date Seen by Provider: Nov 03, 2018 Time Seen by Provider: 06:00 Initial Comments PT ARRIVES VIA POV FROM HOME C/O HIVES STATES SHE BEGAN HAVING A RASH AND BURNING/ITCHING ON SATURDAY AROUND 2200 TOOK BENADRYL X 2 ON SATURDAY AND ITCHING GOT BETTER AND SPOTS/HIVES GOT SMALLER SYMPTOMS RETURNED TODAY AND HAVE SPREAD--HAS NOT TAKEN ANYTHING FOR SYMPTOMS TODAY NO SWELLING ANYWHERE NO DIFFICULTY SWALLOWING OR BREATHING NO HISTORY OF SIMILAR STATES SHE HAD C. DIF AND FINISHED MEDICATIONS A WEEK AGO HAS BEEN ON ACIDOPHILUS FOR A COUPLE OF WEEKS HAS BEEN USING OXICLEAN LAUNDRY DETERGENT AND DID PUT EMU CREAM ON IT ON SATURDAY, OTHERWISE NO NEW PRODUCTS, MEDICATIONS OR EXPOSURES PT STATES SHE HAS BAD ANXIETY AND HAS BEEN UNDER ALOT OF STRESS--HAS XANAX BUT HAS NOT TAKEN FOR AWHILE PCP: DR. CASTAÑEDA Allergies and Home Medications Allergies Coded Allergies: erythromycin base (Verified Allergy, Unknown, HIVES, 07/25/15) Home Medications Alprazolam 0.25 Mg Tablet, 0.25 MG PO DAILY PRN for ANXIETY, (Reported) Amlodipine Besylate 5 Mg Tablet, 5 MG PO DAILY, (Reported) Cholecalciferol (Vitamin D3) 2,000 Unit Tablet, 2,000 UNIT PO DAILY, (Reported) Estradiol 1 Mg Tablet, 1 MG PO DAILY, (Reported) Hydralazine HCl 25 Mg Tablet, 25 MG PO TID, (Reported) Hydrochlorothiazide 25 Mg Tablet, 25 MG PO DAILY, (Reported) Hydroxyzine Pamoate 50 Mg Capsule, 50 MG PO Q4H Prescribed by: EMILIA GARZA on 11/03/18623 Levothyroxine Sodium 50 Mcg Tablet, 50 MCG PO DAILY, (Reported) Losartan Potassium 100 Mg Tablet, 100 MG PO DAILY, (Reported) Metoprolol Succinate 50 Mg Tab.er.24h, 50 MG PO DAILY, (Reported) Mometasone Furoate 45 Gm Cream..g., 45 GM TP TID Prescribed by: EMILIA GARZA on 11/03/18623 Multivitamins-Min/FA/Ginkgo 1 Each Tablet, 1 EACH PO DAILY, (Reported) Potassium Chloride 10 Meq Tablet.er, 10 MEQ PO DAILY, (Reported) Pravastatin Sodium 20 Mg Tablet, 20 MG PO HS, (Reported) Prednisone 10 Mg Tab, 40 MG PO DAILY Prescribed by: EMILIA GARZA on 11/03/18 0624 Patient Home Medication List Home Medication List Reviewed: Yes Review of Systems Review of Systems Constitutional: no symptoms reported EENTM: no symptoms reported Respiratory: no symptoms reported Cardiovascular: no symptoms reported Gastrointestinal: no symptoms reported Genitourinary: no symptoms reported Musculoskeletal: no symptoms reported Skin: see HPI Psychiatric/Neurological: See HPI, Anxiety Endocrine: No Symptoms Reported Hematologic/Lymphatic: No Symptoms Reported Past Msfqxpp-Ybqqhg-Ixnunz Hx Patient Social History Alcohol Use: Occasionally Uses Recreational Drug Use: No Smoking Status: Former Smoker Type Used: Cigarettes Recent Foreign Travel: No Contact w/Someone Who Travel: No Recent Hopitalizations: No Immunizations Up To Date Tetanus Booster (TDap): More than 5yrs Date of Pneumonia Vaccine: Jan 27, 2015 Date of Influenza Vaccine: Jan 27, 2015 Seasonal Allergies Seasonal Allergies: Yes Past Medical History Surgeries: Yes (BACK SURGERY X 3,, RIGHT SHOULDER SURGERY, LYMPH MODE REMOVED FROM L AXILLA; BILATERAL CATARACT SURGERY; COLONOSCOPY) Eye Surgery, Gallbladder, Hysterectomy, Oophorectomy, Orthopedic, Tonsillectomy Respiratory: Yes Chronic Bronchitis Cardiac: Yes High Cholesterol, Hypertension Neurological: No Reproductive Disorders: No Female 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, Menopausal Sexually Transmitted Disease: No HIV/AIDS: No Genitourinary: Yes Bladder Infection, UTI-Chronic Gastrointestinal: Yes Diverticulosis, Hemorrhoids Musculoskeletal: Yes (LUMBAR SURGERY X 3) Degenerate Disk Disease, Arthritis, Chronic Back Pain Endocrine: Yes Hypothyroidsim HEENT: Yes (CATARACTS REMOVED) Cataract Loss of Vision: Denies Hearing Impairment: Denies Cancer: Yes (NON HODGKIN'S LYMPHOMA) Lymphoma Psychosocial: Yes Anxiety Integumentary: No Blood Disorders: No Family Medical History Cancer 09 SISTER (OVARIAN CANCER) DAUGHTER (CLL) Cataract 03 MOTHER Chest pain 03 FATHER (FATHER HAD [place]) Congestive heart failure 03 FATHER (CHF) Family history: Allergy Family history: Alzheimer's disease SON DAUGHTER Family history: Arthritis DAUGHTER Family history: Asthma SON Family history: Glaucoma 03 MOTHER Family history: Hypertension DAUGHTER Family history: Thyroid disorder DAUGHTER Heart disease 03 FATHER Hypercholesterolemia 03 MOTHER Kidney disease 09 BROTHER Myocardial infarction 03 FATHER Tuberculosis DAUGHTER (DAUGHTER HAD POSITIVE SKIN TEST) No Family History of: Abdominal aortic aneurysm [place]'s disease Alcoholism Aphasia Cancer of colon Congenital heart disease Cystic fibrosis Dementia Dysphagia Family history: Breast disease Family history: Cardiovascular disease Family history: Coronary thrombosis Family history: Diabetes mellitus Family history: Gastrointestinal disease Family history: Osteoporosis Headache Hearing loss Hereditary disease History of - anemia History of - disorder History of - respiratory disease History of drug abuse Human immunodeficiency virus (HIV) seropositivity Infertile Malignant neoplasm of lung Parkinson's disease Prostate cancer Psychotic disorder Seizure disorder Stroke Visual impairment Physical Exam Vital Signs Vital Signs - First Documented 11/03/18 05:49 Temp 98.3 Pulse 82 Resp 22 B/P (MAP) 149/67 (94) Pulse Ox 98 O2 Delivery Room Air Capillary Refill : General Appearance: WD/WN, no apparent distress, other (EXTREMELY ANXIOUS, TALKS NON-STOP AT GREAT LENGTH VERY LOULDLY. FULL/HEAVY MAKEUP AND VERY HEAVY PERFUME ) HEENT: normal ENT inspection, pharynx normal (NO SWELLING TO LIPS/TONGUE/UVULA) Neck: normal inspection Cardiovascular: regular rate, rhythm, no murmur Respiratory: normal breath sounds, no respiratory distress, no accessory muscle use Gastrointestinal: soft Back: normal inspection Extremities: normal inspection, no pedal edema, normal capillary refill Neurologic/Psychiatric: supervisor agency appointments II-XII nml as tested, no motor/sensory deficits, alert, oriented x 3 Skin: normal color, warm/dry, rash (PATCHY URTICARIA--INNER / UPPER ARMS, HIPS/BUTTOCKS/POSTERIOR THIGHS. ) Progress/Results/Core Measures Results/Orders My Orders Orders - EMILIA GARZA DO Ed Iv/Invasive Line Start (11/03/18 06:04) Diphenhydramine Injection (Benadryl Inje (11/03/18 06:04) Methylprednisolone Sod Succ (Solu-Medrol (11/03/18 06:04) Famotidine Injection (Pepcid Injection) (11/03/18 06:04) Vital Signs/I&O 11/03/18 05:49 Temp 98.3 Pulse 82 Resp 22 B/P (MAP) 149/67 (94) Pulse Ox 98 O2 Delivery Room Air Progress Progress Note : Progress Note SYMPTOMS RESOLVING WITH MEDICATIONS--ITCHING IS GONE AND RASH IS FADING Departure Impression Primary Impression: Hives Additional Impression: Anxiety Disposition: 01 HOME, SELF-CARE Condition: Improved Departure-Patient Inst. Referrals: YULIET CASTAÑEDA DO (PCP/Family) Primary Care Physician Patient Instructions: Hives (DC), Anxiety, Adult (DC) Add. Discharge Instructions: LOTS OF CLEAR LIQUIDS NO NEW PRODUCTS OR FOODS TAKE YOUR XANAX DAILY FOR ANXIETY FOLLOW UP WITH DR. CASTAÑEDA IN 2-3 DAYS IF NO BETTER RETURN TO ER IF WORSE All discharge instructions reviewed with patient and/or family. Voiced understanding. Scripts Mometasone Furoate (Mometasone Furoate) 45 Gm Cream..g. 45 GM TP TID, #1 TUBE Prov: EMILIA GARZA DO 11/03/18 Hydroxyzine Pamoate (Hydroxyzine Pamoate) 50 Mg Capsule 50 MG PO Q4H for Itching, #20 CAP Prov: EMILIA GARZA DO 11/03/18 Prednisone (Prednisone) 10 Mg Tab 40 MG PO DAILY, #12 TAB Prov: EMILIA GARZA DO 11/03/18 EMILIA GARZA DO Nov 03, 2018 06:18
[2018-11-03] MEDS ORDERED: MOME45CR19 TP (06:24)
[2018-11-03] MEDS ORDERED: PRD10T PO (06:24)
[2018-11-03] MEDS ORDERED: HYDR50CA3 PO (06:24)
--- NOTE | 2018-11-03 06:56 | NUR ---
REPORT GIVEN TO ANA ARCOS
[2018-11-03 08:05] VITALS: BP 141/53
== END 2018-11-03 08:05 | disposition home or self-care (01) ==
LOC: EDUNIT# 05:33 → ER 05:34
DX: L50.9 Urticaria, unspecified (principal); F41.9 Anxiety disorder, unspecified; J42 Unspecified chronic bronchitis; I10 Essential (primary) hypertension; E78.00 Pure hypercholesterolemia, unspecified; E03.9 Hypothyroidism, unspecified; Z80.8 Family history of malignant neoplasm of other organs or systems; Z85.72 Personal history of non-Hodgkin lymphomas; Z87.440 Personal history of urinary (tract) infections; Z91.14 Patient's other noncompliance with medication regimen; Z88.1 Allergy status to other antibiotic agents; Z79.52 Long term (current) use of systemic steroids; Z87.891 Personal history of nicotine dependence; Z90.710 Acquired absence of both cervix and uterus; Z90.89 Acquired absence of other organs; Z82.49 Family history of ischemic heart disease and other diseases of the circulatory system
CPT/HCPCS: 96374; 96375

== ENCOUNTER 2019-04-13 13:41 | Outpatient (RCR) | payer MEDICARE, OTHER ==
[~2019-04-13 13:41] MED LIST changes: +HYDR50CA3 PO; +MOME45CR3 TP; -OXYM30SP NSEACH; +OXYM30SP25 NSEACH; +PRD10T PO
[2019-04-13 14:06] LABS: BASOPHILS % (AUTO) 0 % (0-10); EOSINOPHILS # (AUTO) 0.1 10^3/uL (0.0-0.3); EOSINOPHILS % (AUTO) 1 % (0-10); HEMATOCRIT 38 % (35-52); HEMOGLOBIN 12.2 G/DL (11.5-16.0); LYMPHOCYTES # (AUTO) 5.5 X 10^3 (1.0-4.0); LYMPHOCYTES % (AUTO) 57 % (12-44); MEAN CORPUSCULAR HEMOGLOBIN 30 PG (25-34); MEAN CORPUSCULAR HGB CONC 32 G/DL (32-36); MEAN CORPUSCULAR VOLUME 95 FL (80-99); MONOCYTES # (AUTO) 0.4 X 10^3 (0.0-1.0); MONOCYTES % (AUTO) 5 % (0-12); NEUTROPHILS # (AUTO) 3.7 X 10^3 (1.8-7.8); NEUTROPHILS % (AUTO) 37 % (42-75); PLATELET COUNT 151 10^3/uL (130-400); WHITE BLOOD COUNT 9.8 10^3/uL (4.3-11.0)
[2019-04-13 14:39] LABS: ALBUMIN 4.3 GM/DL (3.2-4.5); BILIRUBIN,TOTAL 0.5 MG/DL (0.1-1.0); CALCIUM 9.6 MG/DL (8.5-10.1); CREATININE SERUM 1.17 MG/DL (0.60-1.30); POTASSIUM 3.3 MMOL/L (3.6-5.0); TOTAL PROTEIN 6.8 GM/DL (6.4-8.2)
== END 2019-07-12 | disposition home or self-care (01) ==
LOC: ONC 13:41
PROVIDERS: ATTEND Internal Medicine Hematology & Oncology
DX: C83.08 Small cell B-cell lymphoma, lymph nodes of multiple sites (principal); D80.1 Nonfamilial hypogammaglobulinemia; D69.59 Other secondary thrombocytopenia; I10 Essential (primary) hypertension; E03.9 Hypothyroidism, unspecified; E78.00 Pure hypercholesterolemia, unspecified; M15.9 Polyosteoarthritis, unspecified; Z79.899 Other long term (current) drug therapy
CPT/HCPCS: 80053; 83615; 85025; 99213

== ENCOUNTER → 2019-04-30 | Outpatient (CLI) | payer MEDICARE, OTHER ==
[~2019-04-30] MED LIST changes: +MOME45CR19 TP; -MOME45CR3 TP; +OXYM30SP NSEACH; -OXYM30SP25 NSEACH
--- NOTE | 2019-04-30 11:21 | Diagnostic Imaging Report ---
INDICATION: Neck pain and left shoulder pain. TIME OF EXAM: 11:07 a.m. Three views of the left shoulder were obtained. FINDINGS: Glenohumeral and acromioclavicular alignment is normal. There is some narrowing of the acromiohumeral space suggestive of rotator cuff arthropathy. There is some mild AC joint degenerative change as well. No fracture or dislocation is seen. IMPRESSION: Degenerative changes and rotator cuff arthropathy. No acute bony abnormality is detected. Dictated by: Dictated on workstation # [id number]
--- NOTE | 2019-04-30 11:22 | Diagnostic Imaging Report ---
INDICATION: Neck pain and shoulder pain. TIME OF EXAM: 11:00 a.m. FINDINGS: Curvature and alignment of the cervical spine is normal. There is multilevel degenerative disc disease with variable disc space narrowing and marginal spurring, greatest at the C4-C5, C5-C6, and C6-C7 levels. Prevertebral tissues are normal. No fracture is seen. Odontoid is intact. IMPRESSION: Cervical spondylosis and facet arthropathy. No acute bony abnormality is detected. Dictated by: Dictated on workstation # [id number]
== END ==
LOC: RAD 10:39
PROVIDERS: ATTEND Internal Medicine
DX: M47.812 Spondylosis without myelopathy or radiculopathy, cervical region (principal); M46.82 Other specified inflammatory spondylopathies, cervical region; M19.012 Primary osteoarthritis, left shoulder
CPT/HCPCS: 72040; 73030

== ENCOUNTER → 2019-09-07 | Outpatient (CLI) | payer MEDICARE, OTHER ==
[~2019-09-07] MED LIST changes: -MOME45CR19 TP; +MOME45CR3 TP; -OXYM30SP NSEACH; +OXYM30SP25 NSEACH
[2019-09-07 14:24] LABS: BASOPHILS % (AUTO) 0 % (0-10); EOSINOPHILS # (AUTO) 0.1 10^3/uL (0.0-0.3); EOSINOPHILS % (AUTO) 1 % (0-10); HEMATOCRIT 36 % (35-52); HEMOGLOBIN 11.5 G/DL (11.5-16.0); LYMPHOCYTES # (AUTO) 5.8 X 10^3 (1.0-4.0); LYMPHOCYTES % (AUTO) 53 % (12-44); MEAN CORPUSCULAR HEMOGLOBIN 30 PG (25-34); MEAN CORPUSCULAR HGB CONC 32 G/DL (32-36); MEAN CORPUSCULAR VOLUME 96 FL (80-99); MEAN PLATELET VOLUME 11.1 FL (7.4-10.4); MONOCYTES # (AUTO) 0.6 X 10^3 (0.0-1.0); MONOCYTES % (AUTO) 6 % (0-12); NEUTROPHILS # (AUTO) 4.4 X 10^3 (1.8-7.8); NEUTROPHILS % (AUTO) 40 % (42-75); PLATELET COUNT 149 10^3/uL (130-400); RED CELL DISTRIBUTION WIDTH 13.3 % (10.0-14.5)
[2019-09-07 14:44] LABS: BILIRUBIN,TOTAL 0.4 MG/DL (0.1-1.0); CALCIUM 9.5 MG/DL (8.5-10.1); CREATININE SERUM 1.21 MG/DL (0.60-1.30); POTASSIUM 3.7 MMOL/L (3.6-5.0); TOTAL PROTEIN 6.5 GM/DL (6.4-8.2)
== END ==
LOC: EDSTATUS 07-13 09:09 → ONC 14:32
PROVIDERS: ATTEND Internal Medicine Hematology & Oncology
DX: C83.08 Small cell B-cell lymphoma, lymph nodes of multiple sites (principal); D80.1 Nonfamilial hypogammaglobulinemia; D69.59 Other secondary thrombocytopenia; I10 Essential (primary) hypertension; E03.9 Hypothyroidism, unspecified; E78.00 Pure hypercholesterolemia, unspecified; M15.9 Polyosteoarthritis, unspecified; Z79.899 Other long term (current) drug therapy
CPT/HCPCS: 80053; 83615; 85025; 99213

== ENCOUNTER → 2020-03-07 | Outpatient (CLI) | payer MEDICARE, OTHER ==
[~2020-03-07] MED LIST changes: +AMLO-250 PO; -AMLO5TAB9 PO
[2020-03-07 14:48] LABS: BASOPHILS # (AUTO) 0.1 10^3/uL (0.0-0.1); BASOPHILS % (AUTO) 0 % (0-10); EOSINOPHILS # (AUTO) 0.1 10^3/uL (0.0-0.3); EOSINOPHILS % (AUTO) 1 % (0-10); HEMATOCRIT 35 % (35-52); HEMOGLOBIN 11.1 g/dL (11.5-16.0); LYMPHOCYTES # (AUTO) 8.2 10^3/uL (1.0-4.0); LYMPHOCYTES % (AUTO) 57 % (12-44); MEAN CORPUSCULAR HEMOGLOBIN 31 pg (25-34); MEAN CORPUSCULAR HGB CONC 32 g/dL (32-36); MEAN CORPUSCULAR VOLUME 96 fL (80-99); MEAN PLATELET VOLUME 11.1 fL (9.0-12.2); MONOCYTES # (AUTO) 0.8 10^3/uL (0.0-1.0); MONOCYTES % (AUTO) 6 % (0-12); NEUTROPHILS # (AUTO) 5.1 10^3/uL (1.8-7.8); NEUTROPHILS % (AUTO) 36 % (42-75); PLATELET COUNT 133 10^3/uL (130-400); WHITE BLOOD COUNT 14.2 10^3/uL (4.3-11.0)
[2020-03-07 15:08] LABS: BILIRUBIN,TOTAL 0.5 MG/DL (0.1-1.0); CALCIUM 9.3 MG/DL (8.5-10.1); CREATININE SERUM 1.16 MG/DL (0.60-1.30); TOTAL PROTEIN 6.7 GM/DL (6.4-8.2)
== END ==
LOC: ONC 14:34
PROVIDERS: ATTEND Internal Medicine Hematology & Oncology
DX: C83.08 Small cell B-cell lymphoma, lymph nodes of multiple sites (principal)
CPT/HCPCS: 80053; 83615; 85025

== ENCOUNTER → 2020-08-01 | Outpatient (CLI) | payer MEDICARE, OTHER ==
--- NOTE | 2020-08-01 16:02 | Diagnostic Imaging Report ---
INDICATION: Routine screening. COMPARISON: 12/19/2018 and 07/08/2017. FINDINGS: Nodular densities in both breasts appear to wax and wane, consistent with benign etiology such as cysts. There are benign calcifications in both breasts. No spiculated mass or malignant appearing microcalcifications are seen. The axillae are unremarkable. IMPRESSION: No mammographic features suspicious for malignancy are identified. ACR BI-RADS Category 2: Benign findings. Result letter will be mailed to the patient. Note: At least 10% of breast cancer is not imaged by mammography. Dictated by: Dictated on workstation # [id number]
== END ==
LOC: RAD 09:13
PROVIDERS: ATTEND Internal Medicine
DX: Z12.31 Encounter for screening mammogram for malignant neoplasm of breast (principal); I51.7 Cardiomegaly; I34.0 Nonrheumatic mitral (valve) insufficiency
CPT/HCPCS: 77063; 77067; 93306

== ENCOUNTER 2020-08-25 13:27 | Outpatient (RCR) | payer MEDICARE, OTHER | END 2020-08-25 14:08 | disposition home or self-care (01) | PROVIDERS: ATTEND Internal Medicine | DX: I89.0 Lymphedema, not elsewhere classified (principal); M54.40 Lumbago with sciatica, unspecified side ==

== ENCOUNTER → 2020-09-05 | Outpatient (CLI) | payer MEDICARE, OTHER ==
[2020-09-05 14:39] LABS: BASOPHILS % (AUTO) 0 % (0-10); EOSINOPHILS # (AUTO) 0.2 10^3/uL (0.0-0.3); EOSINOPHILS % (AUTO) 3 % (0-10); HEMATOCRIT 35 % (35-52); HEMOGLOBIN 11.2 g/dL (11.5-16.0); LYMPHOCYTES # (AUTO) 4.1 X 10^3 (1.0-4.0); LYMPHOCYTES % (AUTO) 59 % (12-44); MEAN CORPUSCULAR HEMOGLOBIN 30 pg (25-34); MEAN CORPUSCULAR HGB CONC 32 g/dL (32-36); MEAN CORPUSCULAR VOLUME 95 fL (80-99); MEAN PLATELET VOLUME 10.7 fL (9.0-12.2); MONOCYTES # (AUTO) 0.3 X 10^3 (0.0-1.0); MONOCYTES % (AUTO) 5 % (0-12); NEUTROPHILS # (AUTO) 2.4 X 10^3 (1.8-7.8); NEUTROPHILS % (AUTO) 34 % (42-75); PLATELET COUNT 118 10^3/uL (130-400)
[2020-09-05 15:03] LABS: ALBUMIN 3.8 GM/DL (3.2-4.5); BILIRUBIN,TOTAL 0.4 MG/DL (0.1-1.0); CREATININE SERUM 1.04 MG/DL (0.60-1.30); POTASSIUM 3.2 MMOL/L (3.6-5.0); TOTAL PROTEIN 5.9 GM/DL (6.4-8.2)
== END | disposition home or self-care (01) ==
LOC: ONC 14:04
PROVIDERS: ATTEND Internal Medicine Hematology & Oncology
DX: C85.10 Unspecified B-cell lymphoma, unspecified site (principal); D80.1 Nonfamilial hypogammaglobulinemia; D69.6 Thrombocytopenia, unspecified; D64.9 Anemia, unspecified; M19.90 Unspecified osteoarthritis, unspecified site; E03.9 Hypothyroidism, unspecified; I10 Essential (primary) hypertension; E78.00 Pure hypercholesterolemia, unspecified; J42 Unspecified chronic bronchitis; Z79.82 Long term (current) use of aspirin; Z79.899 Other long term (current) drug therapy; Z79.890 Hormone replacement therapy; Z68.34 Body mass index [BMI] 34.0-34.9, adult
CPT/HCPCS: 80053; 83615; 85025; G0463; 99213

== ENCOUNTER → 2020-09-14 | Outpatient (CLI) | payer MEDICARE, OTHER ==
[~2020-09-14] MED LIST changes: +CATHETER FLUSH 10 ML SYR IV PRN; +REGADENOSON 0.4 MG/5 ML SYR (LEXISCAN) IV ONE
[2020-09-14 09:39] VITALS: BP 190/63
--- NOTE | 2020-09-14 12:30 | Cardiology Stress Test Report ---
Stress Test Report Date of Procedure/Referring: Date of Procedure: September 14, 2020 PCP Jono May MD Admitting Physician Mili Gautam DO Indications: CAD Baseline Heart Rate: 86 Baseline Blood Pressure: Blood Pressure Systolic: 190 Blood Pressure Diastolic: 63 Baseline Vitals Vital Signs Date Time Temp Pulse Resp B/P (MAP) Pulse Ox O2 Delivery O2 Flow Rate FiO2 09/14/20 09:39 86 190/63 (105) Baseline EKG: Baseline EKG: LBBB Summary After explaining the procedure to the patient, she signed a consent and then brought to the stress nuclear laboratory. Patient received 0.4 mg Lexiscan for stress test, ECG, heart rate and blood pressure were monitored continuously. Resting and stress dose of radio tracer were injected, imaging was acquired and reviewed in short axis, horizontal long axis and vertical long axis views. TID: 1.03 SSS: 4 SDS: 2 EF: 47 1. Patient tolerated Lexiscan well 2. Baseline left bundle branch block persisted during test 3. Mild decreased uptake involving the anterior apical segment with mild reversibility, no significant ischemia or infarction on SPECT images 4. Normal left ventricular size, EF 47% JONO MAY MD September 14, 2020 12:30
== END ==
LOC: CARD 08:45
PROVIDERS: ATTEND Internal Medicine Cardiovascular Disease
DX: I25.10 Atherosclerotic heart disease of native coronary artery without angina pectoris (principal); I10 Essential (primary) hypertension
CPT/HCPCS: 78452; 93017; A9502

== ENCOUNTER → 2020-12-26 | Outpatient (CLI) | payer MEDICARE, OTHER ==
[~2020-12-26] MED LIST changes: +HOLD METFORMIN - RECEIVED CONTRAST 20 ML VIAL IV SCH; +IOHEXOL 350 MG/ML 100 ML (OMNIPAQUE 350) VIAL IV ONE; +NS 100 ML (IVPB) BAG IV ONE; -REGADENOSON 0.4 MG/5 ML SYR (LEXISCAN) IV ONE
[2020-12-26 13:54] LABS: CREATININE SERUM 0.98 MG/DL (0.60-1.30)
--- NOTE | 2020-12-26 15:02 | Diagnostic Imaging Report ---
EXAMINATION: CT neck and chest with intravenous contrast. TECHNIQUE: Multiple contiguous axial images were obtained through the neck and chest after the uneventful administration of intravenous contrast. All CT scans use one or more of the following dose optimizing techniques: automated exposure control, MA and/or KvP adjustment based on patient size and exam type or iterative reconstruction. HISTORY: Vocal cord paralysis. COMPARISON: None available. FINDINGS: Neck CT: Scattered subcentimeter lymph nodes are seen in the neck. None are pathologically enlarged or abnormally enhancing. The muscles of the neck are normal. Vessels of the neck demonstrate normal course and caliber. Fascial planes are preserved and the deep spaces of the neck are normal. The visualized airway is widely patent. The base of the skull and the temporal bones are normal. Limited views of the brain including the cerebellum and brainstem are normal. The limited view of the [place] is unremarkable. The visualized portions of the orbits are normal. There are no suspicious osseous lesions. Chest CT: There is no edema or pneumonia. No pleural effusion. No pneumothorax. No suspicious nodules. There is no axillary or supraclavicular lymphadenopathy. There is no mediastinal lymphadenopathy. Left ventricle and left atrium are dilated. There are moderate coronary artery calcifications. No pericardial effusion. Aorta is normal in caliber. Limited views of the upper abdomen show tiny hypoattenuating lesions in the liver which are too small to characterize and may represent cysts. There are no suspicious osseous lesions. IMPRESSION: 1. No etiology for vocal cord paralysis identified. There is no mediastinal mass or neck mass. Dictated by: Dictated on workstation # [id number]
== END ==
LOC: RAD 14:45
PROVIDERS: ATTEND Otolaryngology Otolaryngology/Facial Plastic Surgery
DX: J38.3 Other diseases of vocal cords (principal)
CPT/HCPCS: 36415; 70491; 71260; 82565; 84520

== ENCOUNTER → 2021-03-06 | Outpatient (CLI) | payer MEDICARE, OTHER ==
[~2021-03-06] MED LIST changes: -CATHETER FLUSH 10 ML SYR IV PRN; -HOLD METFORMIN - RECEIVED CONTRAST 20 ML VIAL IV SCH; -IOHEXOL 350 MG/ML 100 ML (OMNIPAQUE 350) VIAL IV ONE; -NS 100 ML (IVPB) BAG IV ONE
[2021-03-06 14:46] LABS: BASOPHILS # (AUTO) 0.1 10^3/uL (0.0-0.1); BASOPHILS % (AUTO) 0 % (0-10); EOSINOPHILS # (AUTO) 0.2 10^3/uL (0.0-0.3); EOSINOPHILS % (AUTO) 1 % (0-10); HEMATOCRIT 35 % (35-52); HEMOGLOBIN 11.4 g/dL (11.5-16.0); LYMPHOCYTES % (AUTO) 58 % (12-44); MEAN CORPUSCULAR HEMOGLOBIN 31 pg (25-34); MEAN CORPUSCULAR HGB CONC 32 g/dL (32-36); MEAN CORPUSCULAR VOLUME 96 fL (80-99); MEAN PLATELET VOLUME 10.8 fL (9.0-12.2); MONOCYTES # (AUTO) 0.6 10^3/uL (0.0-1.0); MONOCYTES % (AUTO) 5 % (0-12); NEUTROPHILS # (AUTO) 4.9 10^3/uL (1.8-7.8); NEUTROPHILS % (AUTO) 35 % (42-75); PLATELET COUNT 163 10^3/uL (130-400); WHITE BLOOD COUNT 13.7 10^3/uL (4.3-11.0)
[2021-03-06 15:09] LABS: BILIRUBIN,TOTAL 0.3 MG/DL (0.1-1.0); CALCIUM 9.4 MG/DL (8.5-10.1); CREATININE SERUM 1.17 MG/DL (0.60-1.30); POTASSIUM 3.5 MMOL/L (3.6-5.0); TOTAL PROTEIN 6.7 GM/DL (6.4-8.2)
== END ==
LOC: ONC 14:29
PROVIDERS: ATTEND Internal Medicine Hematology & Oncology
DX: C83.00 Small cell B-cell lymphoma, unspecified site (principal); D80.1 Nonfamilial hypogammaglobulinemia; I25.10 Atherosclerotic heart disease of native coronary artery without angina pectoris; E78.00 Pure hypercholesterolemia, unspecified; I10 Essential (primary) hypertension; E03.9 Hypothyroidism, unspecified; E66.9 Obesity, unspecified
CPT/HCPCS: 80053; 83615; 85025; G0463; 99213

== ENCOUNTER 2022-03-26 17:48 | Emergency (ER) | payer MEDICARE, OTHER ==
[~2022-03-26] VITALS: Ht 157 cm; Wt 72.5 kg
--- NOTE | 2022-03-26 18:54 | ED CPR ---
HPI-CPR General Chief Complaint: Code Blue Stated Complaint: CODE BLUE Nursing Triage Note: PT PRESENTS TO ED VIA EMS FROM HOME FOR CARDIAC ARREST. PER EMS PT CALLED EMS FOR SOB. UPON PD ARRIVAL PT WAS FOUND UNRESPONSIVE AND AGONAL BREATHING. PER EMS [facility] STARTED CPR AROUND 1707. EMS REPORTS THEY PLACED SIZED 5 I-GEL AND DID CONTINUOUS CPR ON SCENE WITH NO SHOCKABLE RYTHMS AND PT REMAINED IN PEA. EMS REPORTS GIVING 5 ROUND OF EPI ON SCENE. CPR WAS IN PROGRESS UPON PT ARRIVAL TO ED AND ED STAFF TOOK OVER CHEST COMPRESSIONS AT 1751. Source of Information: EMS, Other ([facility]) History of Present Illness Date Seen by Provider: Mar 26, 2022 Time Seen by Provider: 17:51 Initial Comments PT ARRIVES VIA EMS, CODE BLUE IN PROGRESS EMS REPORTS THAT PT HAD CALLED 911 FOR SHORTNESS OF BREATH. WHEN [facility] ARRIVED, PT WAS ON THE TOILET, SLUMPED OVER AND UNRESPONSIVE, WITH VERY AGONAL BREATHING AND WAS PULSELESS CPR WAS INITIATED BY [facility], NO BYSTANDER CPR PRIOR TO THAT EMS REPORTS THAT THEY WERE ON SCENE AT 1707. THEY ESTIMATE DOWN TIME AROUND 1700. PT WAS PULSELESS AND APNEIC ON THEIR ARRIVAL AT THE SCENE. AED DID NOT ADVISE ANY SHOCK, AND PT WAS FOUND TO BE IN ASYSTOLE. EMS CONTINUED CPR, I-GEL AIRWAY DEVICE PLACED, AND PT WAS GIVEN EPINEPHRINE X 5 BY EMS--NO RESPONSE. PT REMAINS IN ASYSTOLE/PEA, WITH NO RESPIRATORY EFFORT. ON ARRIVAL HERE, PT CONTINUES TO BE PULSELESS AND APNEIC, WITH PEA TO ASYSTOLE CPR WAS CONTINUED ON ARRIVAL HERE ASYSTOLE/PEA WAS CONFIRMED IN MULTIPLE LEADS, AND CODE WAS CALLED AT 1754, DOWN TIME IS APPROACHING 1 HOUR, WITH NO ROSC OR ANY RESPIRATORY EFFORT AT ANY TIME. PCP: DR. CASTAÑEDA Allergies and Home Medications Allergies Coded Allergies: erythromycin base (Verified Allergy, Unknown, HIVES, 07/25/15) Patient Home Medication List Home Medication List Reviewed: Yes Alprazolam (Xanax) 0.25 Mg Tablet, 0.25 MG PO DAILY PRN for ANXIETY, (Reported) Entered as Reported by: STANTON JOSEPH on 07/25/15 1435 Amlodipine Besylate (Amlodipine Besylate) 5 Mg Tablet, 5 MG PO DAILY, (Reported) Entered as Reported by: STANTON JOSEPH on 6/10/19 0957 Cholecalciferol (Vitamin D3) (Vitamin D-3) 2,000 Unit Tablet, 2,000 UNIT PO DAILY, (Reported) Entered as Reported by: STANTON JOSEPH on 07/25/15 1435 Estradiol (Estradiol Tablet) 1 Mg Tablet, 1 MG PO DAILY, (Reported) Entered as Reported by: STANTON JOSEPH on 10/06/18956 Hydralazine HCl (Hydralazine HCl) 25 Mg Tablet, 25 MG PO TID, (Reported) Entered as Reported by: STANTON JOSEPH on 10/06/18956 Hydrochlorothiazide (Hydrochlorothiazide) 25 Mg Tablet, 25 MG PO DAILY, (Reported) Entered as Reported by: STANTON JOSEPH on 10/06/18956 Hydroxyzine Pamoate (Hydroxyzine Pamoate) 50 Mg Capsule, 50 MG PO Q4H Prescribed by: EMILIA GARZA on 11/03/18623 Levothyroxine Sodium (Levothyroxine Sodium) 50 Mcg Tablet, 50 MCG PO DAILY, (Reported) Entered as Reported by: STANTON JOSEPH on 10/06/18956 Losartan Potassium (Losartan Potassium) 100 Mg Tablet, 100 MG PO DAILY, (Reported) Entered as Reported by: STANTON JOSEPH on 10/06/18956 Metoprolol Succinate (Toprol Xl) 50 Mg Tab.er.24h, 50 MG PO DAILY, (Reported) Entered as Reported by: PETERSON LANDIN on 09/22/17 09 Mometasone Furoate (Mometasone Furoate) 45 Gm Cream..g., 45 GM TP TID Prescribed by: EMILIA GARZA on 11/03/18623 Multivitamins-Min/FA/Ginkgo (One Daily For Women 50+ Adv Tb) 1 Each Tablet, 1 EACH PO DAILY, (Reported) Entered as Reported by: STANTON JOSEPH on 07/25/15 1435 Potassium Chloride (Potassium Chloride) 10 Meq Tablet.er, 10 MEQ PO DAILY, (Reported) Entered as Reported by: STANTON JOSEPH on 10/06/18956 Pravastatin Sodium (Pravastatin Sodium) 20 Mg Tablet, 20 MG PO HS, (Reported) Entered as Reported by: STANTON JOSEPH on 10/06/18 0957 Prednisone (Prednisone) 10 Mg Tab, 40 MG PO DAILY Prescribed by: EMILIA GARZA on 11/03/18 0624 Review of Systems Review of Systems Constitutional: see HPI Past Pteqcrn-Clsiof-Qirehv Hx Patient Social History Tobacco Use?: No Substance use?: No Alcohol Use?: Unable to obtain Pt feels they are or have been: No Immunizations Up To Date Tetanus Booster (TDap): More than 5yrs Seasonal Allergies Seasonal Allergies: Yes Past Medical History Surgeries: Yes Eye Surgery, Gallbladder, Hysterectomy, Oophorectomy, Orthopedic, Tonsillectomy Respiratory: Yes Chronic Bronchitis Cardiac: Yes High Cholesterol, Hypertension Neurological: No Reproductive Disorders: No Female Reproductive Disorders: Denies BABY DOCTOR History: Hysterectomy, Menopausal Sexually Transmitted Disease: No HIV/AIDS: No Genitourinary: Yes Bladder Infection, UTI-Chronic Gastrointestinal: Yes Diverticulosis, Hemorrhoids Musculoskeletal: Yes (LUMBAR SURGERY X 3) Degenerate Disk Disease, Arthritis, Chronic Back Pain Endocrine: Yes Hypothyroidsim HEENT: Yes (CATARACTS REMOVED; ) Cataract Loss of Vision: Denies Hearing Impairment: Denies Cancer: Yes (NON HODGKIN'S LYMPHOMA) Lymphoma Psychosocial: Yes Anxiety Integumentary: No Blood Disorders: No Family Medical History Cancer 09 SISTER (OVARIAN CANCER) DAUGHTER (CLL) Cataract 03 MOTHER Chest pain 03 FATHER (FATHER HAD DE) Congestive heart failure 03 FATHER (CHF) Family history: Allergy Family history: Alzheimer's disease SON DAUGHTER Family history: Arthritis DAUGHTER Family history: Asthma SON Family history: Glaucoma 03 MOTHER Family history: Hypertension DAUGHTER Family history: Thyroid disorder DAUGHTER Heart disease 03 FATHER Hypercholesterolemia 03 MOTHER Kidney disease 09 BROTHER Myocardial infarction 03 FATHER Tuberculosis DAUGHTER (DAUGHTER HAD POSITIVE SKIN TEST) No Family History of: Abdominal aortic aneurysm Benton's disease Alcoholism Aphasia Cancer of colon Congenital heart disease Cystic fibrosis Dementia Dysphagia Family history: Breast disease Family history: Cardiovascular disease Family history: Coronary thrombosis Family history: Diabetes mellitus Family history: Gastrointestinal disease Family history: Osteoporosis Headache Hearing loss Hereditary disease History of - anemia History of - disorder History of - respiratory disease History of drug abuse Human immunodeficiency virus (HIV) seropositivity Infertile Malignant neoplasm of lung Parkinson's disease Prostate cancer Psychotic disorder Seizure disorder Stroke Visual impairment Physical Exam Vital Signs Capillary Refill : Height, Weight, BMI Height: 5'6.00" Weight: 201lbs. 0.0oz. [id number]; 29.00 BMI Method:Estimated General Appearance: Other (UNRESPONSIVE, BEING BAGGED VIA I-GEL AIRWAY DEVICE. ) HEENT: Other (PUPILS FIXED AND DILATED. ) Respiratory: Other (NO RESPIRATORY EFFORT. ) Cardiovascular: Other (PULSELESS) Skin: Cyanosis, Pallor Departure Communication (Admissions) 1758--SPOKE WITH DR. CASTAÑEDA, PT'S PHYSICIAN. SHE WILL BE IN TO TALK WITH FAMILY 1813--[facility] IS HERE, HE STATES NO OTHER FAMILY WILL BE COMING. HIS FATHER WAS PRESENT AT HOME, BUT HE DID NOT WISH TO COME TO [id number] SON STATES THAT PT CALLED HIM AND TOLD HIM SHE WAS SHORT OF BREATH AND EMS WAS CALLED. HE REPORTS THAT HE ARRIVED AT THE SAME TIME EMS ARRIVED, AND SHE WAS SLUMPED OVER ON THE TOILET WHEN HE ARRIVED, AND WAS BARELY BREATHING OR NOT BREATHING AT ALL AND WAS UNRESPONSIVE. 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 1826--DR. CASTAÑEDA IS HERE TO TALK WITH SON. Impression Primary Impression: Cardiopulmonary arrest Disposition: 20 Condition: Departure-Patient Inst. Referrals: YULIET CASTAÑEDA DO (PCP/Family) Primary Care Physician EMILIA GARZA DO Mar 26, 2022 18:54
== END 2022-03-26 20:27 | disposition expired ==
LOC: EDUNIT# 17:48 → ER 17:49
DX: I46.9 Cardiac arrest, cause unspecified (principal)
CPT/HCPCS: 31500; 99283